=== PATIENT | male | born 1960 | race Caucasian/White ===

== ENCOUNTER 2016-09-17 12:54 | Emergency (ER) | payer OTHER ==
[2016-09-17 13:09] VITALS: BP 127/74; PULSE 94; TEMP 97.6; BMI 29.2
--- NOTE | 2016-09-17 14:14 | PDOC ---
History of Present Illness - General Chief Complaint: Abscess Boil Stated Complaint: PAIN Time Seen by Provider: 09/17/16 13:38 History Source: Patient - History of Present Illness Timing/Duration: reports: yesterday Location: reports: genitalia Past History - Past Medical History Allergies/Adverse Reactions: Allergies Allergy/AdvReac Type Severity Reaction Status Date / Time No Known Allergies Allergy Verified 09/17/16 13:04 Home Medications: Ambulatory Orders Insulin Lispro [Humalog] 10 unit SQ TID #1 ml 08/28/14 Metformin HCl [Glucophage -] 500 mg PO TID #90 tablet 08/28/14 Gabapentin [Gralise] 600 mg PO DAILY 03/23/16 Insulin (Levemir) [Levemir Vial] 37 units SQ BID #100 ml 03/31/16 Insulin Sliding Scale [Novolog Vial Sliding Scale -] 1 vial SQ ACHS units 03/31 Clindamycin [Cleocin -] 300 mg PO Q6HPO #28 capsule 09/17/16 Asthma: Yes Cardiac Disorders: Yes Diabetes: Yes (insulin) HTN: Yes Psychiatric Problems: Yes (anxiety) Suicide Attempt (Hx): No - Surgical History Abdominal Surgery: Yes Appendectomy: Yes Cholecystectomy: Yes - Immunization History Immunization Up to Date: Yes - Psycho/Social/Smoking Cessation Hx Anxiety: No Suicidal Ideation: No Smoking History: Never smoked Have you smoked in the past 12 months: No Information on smoking cessation initiated: No Hx Alcohol Use: No Drug/Substance Use Hx: No Substance Use Type: None Hx Substance Use Treatment: No Review of Systems - Review of Systems Constitutional: No: Chills, Fever Integumentary: Yes: Other (wound) *Physical Exam - Vital Signs Last Vital Signs Temp Pulse Resp BP Pulse Ox 97.6 F 94 H 18 127/74 100 09/17/16 13:05 09/17/16 13:05 09/17/16 13:05 09/17/16 13:05 09/17/16 13:05 - Physical Exam General Appearance: Yes: Appropriately Dressed. No: Apparent Distress HEENT: positive: Normal Voice Neck: positive: Supple Respiratory/Chest: negative: Respiratory Distress Male Genitalia: positive: other (~1cm superficial abscess draining pus located to junction of perienum and scrotum, genitalia otherwise unremarkable) Integumentary: positive: Dry, Warm Neurologic: positive: Fully Oriented, Alert, Normal Mood/Affect Procedures - Incision and Drainage I&D Site: Right: Groin (~1cm superficial abscess to perineum) Anesthesia: 1% Lidocaine Volume(ml): 5 Blade Size: 11 Attempts: 1 (w/ scant pus, no packing placed) Complications: none Dressing: Yes Medical Decision Making - Medical Decision Making 09/17/16 13:57 56 yo M, h/o IDDM , recurrent abscesses, MRSA on prior wound cx, here w/ pain and swelling to scrotum since yesterday. No f/c. Denies trauma See exam Draining superficial perineal abscess -I&D -tetanus UTD -abx -wound check 09/17/16 14:19 S/P I&D w/ scant pus, no need for packing. Dc w/ abx and wound check as needed *DC/Admit/Observation/Transfer Diagnosis at time of Disposition: Perineal abscess - Discharge Dispostion Disposition: HOME Condition at time of disposition: Improved - Prescriptions Prescriptions: Clindamycin [Cleocin -] 300 mg PO Q6HPO #28 capsule - Referrals Referrals: Purnima Velazco MD [Primary Care Provider] - - Patient Instructions Printed Discharge Instructions: DI for Incision and Drainage of a Skin Abscess Additional Instructions: Please return for worsening symptoms
== END 2016-09-17 14:17 | disposition home or self-care (01) ==
LOC: JERFT 12:54
PROC: 0J9B0ZZ Drainage of Perineum Subcutaneous Tissue and Fascia, Open Approach (ICD-10-PCS; principal; 2016-09-17)
DX: L02.215 Cutaneous abscess of perineum (principal); I10 Essential (primary) hypertension; E11.9 Type 2 diabetes mellitus without complications; Z79.84 Long term (current) use of oral hypoglycemic drugs; Z79.4 Long term (current) use of insulin; F41.9 Anxiety disorder, unspecified; J45.909 Unspecified asthma, uncomplicated
CPT/HCPCS: 99281-25

== ENCOUNTER 2017-01-10 11:51 | Inpatient (IN) | payer OTHER ==
[2017-01-10 12:02] VITALS: BMI 30.7
[2017-01-10] MEDS ORDERED: SODIUM CHLORIDE 1,000 ML IV STA ×2 (13:49→15:59)
[2017-01-10] MEDS ORDERED: CLINDAMYCIN IVPB 300 MG in DEXTROSE 5%-WATER - 48 ML IVPB ONE (13:50)
[2017-01-10] MEDS ORDERED: ACETAMINOPHEN 325 MG TABLET (FP) PO ONE (13:51)
[2017-01-10] MEDS ORDERED: OXYCODONE/APAP 5/325MG COMBO TABLET PO ONE (13:51)
[2017-01-10] MEDS ORDERED: ACETAMINOPHEN 325 MG TABLET (FP) ONE (14:13)
[2017-01-10] MEDS ORDERED: OXYCODONE/APAP 5/325MG COMBO TABLET ONE (14:14)
[2017-01-10 14:53] LABS: BASOPHIL 0.8 % (0-2.0); EOSINOPHIL 0.2 % (0-4.5); MCH 28.1 pg (25.7-33.7); MCHC 33.2 g/dl (32.0-35.9); MEAN CELL VOLUME 84.6 fl (80-96); MEAN PLT VOLUME 9.4 fl (7.5-11.1); NEUTROPHILS 79.2 % (42.8-82.8); PLATELET COUNT 204 K/MM3 (134-434); RDW 12.8 % (11.9-15.9); WHITE BLOOD COUNT 15.3 K/mm3 (4.0-10.0)
[2017-01-10 15:02] LABS: VENOUS PH 7.38 (7.32-7.42)
[2017-01-10 15:03] LABS: VENOUS BLOOD GAS HCO3 28.5 meq/L (19-25)
--- NOTE | 2017-01-10 15:07 | PDOC ---
History of Present Illness - General Chief Complaint: Pain, Acute Stated Complaint: ABSCESS BOIL Time Seen by Provider: 01/10/17 12:25 History Source: Patient Exam Limitations: No Limitations - History of Present Illness Initial Comments: 01/10/17 14:07 56-year-old male with history of diabetes and MRSA presents to the ED with worsening right buttock redness and tenderness. Patient states history of recurrent abscesses to the area and normally responds well to clindamycin. Patient states has not seen anyone a decided come to the ER before symptoms worsen. Patient states has had some fever and chills without elevation in his glucose. Patient denies any rectal involvement difficulty defecating, or difficulty urinating. Timing/Duration: getting worse Severity: moderate Associated Symptoms: reports: fever/chills Past History - Travel Traveled outside of the country in the last 30 days: No Close contact w/someone who was outside of country & ill: No - Past Medical History Allergies/Adverse Reactions: Allergies Allergy/AdvReac Type Severity Reaction Status Date / Time No Known Allergies Allergy Verified 01/10/17 12:03 Home Medications: Ambulatory Orders RX: Insulin Lispro [Humalog] 10 unit SQ TID #1 ml 08/28/14 RX: Metformin HCl [Glucophage -] 500 mg PO TID #90 tablet 08/28/14 RX: Gabapentin [Gralise] 600 mg PO DAILY 03/23/16 RX: Insulin (Levemir) [Levemir Vial] 37 units SQ BID #100 ml 03/31/16 RX: Insulin Sliding Scale [Novolog Vial Sliding Scale -] 1 vial SQ ACHS units 03/31/16 RX: Clindamycin [Cleocin -] 300 mg PO Q6HPO #28 capsule 09/17/16 Asthma: Yes Cardiac Disorders: Yes Diabetes: Yes (insulin) HTN: Yes Psychiatric Problems: Yes (anxiety) Suicide Attempt (Hx): No - Surgical History Abdominal Surgery: Yes Appendectomy: Yes Cholecystectomy: Yes - Immunization History Immunization Up to Date: Yes - Psycho/Social/Smoking Cessation Hx Anxiety: No Suicidal Ideation: No Smoking History: Never smoked Have you smoked in the past 12 months: No Hx Alcohol Use: No Drug/Substance Use Hx: No Substance Use Type: None Hx Substance Use Treatment: No Patient Lives Alone: No Lives with/in: spouse/SO Review of Systems - Review of Systems Able to Perform ROS?: Yes Is the patient limited Iraqi proficient: No Constitutional: Yes: Chills, Fever HEENTM: No: Symptoms Reported Respiratory: No: Symptoms reported Cardiac (ROS): No: Symptoms Reported ABD/GI: No: Symptoms Reported : No: Symptoms Reported Musculoskeletal: No: Symptoms Reported Integumentary: Yes: Erythema, Lumps Neurological: No: Symptoms reported Endocrine: No: Symptoms Reported Hematologic/Lymphatic: No: Symptoms Reported *Physical Exam - Vital Signs Last Vital Signs Temp Pulse Resp BP Pulse Ox 97.5 F L 128 H 18 133/89 95 01/10/17 12:00 01/10/17 12:00 01/10/17 12:00 01/10/17 12:00 01/10/17 12:00 - Physical Exam General Appearance: Yes: Nourished, Appropriately Dressed. No: Apparent Distress HEENT: negative: Pale Conjunctivae Respiratory/Chest: positive: Lungs Clear, Normal Breath Sounds. negative: Respiratory Distress, Accessory Muscle Use Cardiovascular: positive: Regular Rhythm, Tachycardia Rectal Exam: positive: normal exam Extremity: positive: Normal Capillary Refill. negative: Pedal Edema Integumentary: positive: Other (noted 3 x 4 nonfluctuant erythematous tender raised semi firm mass. Surrounding skin intact. No involvement of the rectum) Neurologic: positive: Motor Strength 5/5 (ambulatory) Heart Score/ECG Review - ECG Intrepretation Rhythm: Regular Rhythm (tachycardia at 113.) ED Treatment Course - LABORATORY CBC & Chemistry Diagram: 01/10/17 14:40 01/10/17 14:40 - Medications Given in the ED: ED Medications Discontinued Medications Generic Name Dose Route Start Last Admin Trade Name Freq PRN Reason Stop Dose Admin Acetaminophen 650 mg 01/10/17 13:51 01/10/17 14:17 Tylenol - PO 01/10/17 13:52 650 mg ONCE ONE Administration Oxycodone/Acetaminophen 1 combo 01/10/17 13:51 01/10/17 14:17 Percocet 5/325 - PO 01/10/17 13:52 1 combo ONCE ONE Administration Medical Decision Making - Medical Decision Making 01/10/17 14:11 Patient here with right buttock mass likely an abscess due to history and clinical presentation. Patient also found to be tachycardic and warm to touch. Septic workup initiated. Patient ordered for clindamycin. Patient also ordered for Tylenol along with Percocet for discomfort and likely fever. 01/10/17 16:33 Laboratory Tests 01/10/17 01/10/17 01/10/17 14:40 14:40 14:40 WBC 15.3 H D Hgb 15.3 Hct 46.1 Plt Count 204 D Neutrophils % 79.2 D INR 1.23 H VBG pH POC VBG pCO2 POC VBG pO2 Mixed VBG HCO3 Sodium 133 L Potassium 3.8 Chloride 96 L Carbon Dioxide 28 Anion Gap 9 BUN 12 Creatinine 0.8 Random Glucose 294 H Lactic Acid Calcium 8.6 Total Bilirubin 1.5 H D AST 9 L D Troponin I < 0.02 Total Protein 7.0 Albumin 3.2 L 01/10/17 01/10/17 14:40 14:45 WBC Hgb Hct Plt Count Neutrophils % INR VBG pH 7.38 POC VBG pCO2 49.7 POC VBG pO2 24.3 L Mixed VBG HCO3 28.5 H Sodium Potassium Chloride Carbon Dioxide Anion Gap BUN Creatinine Random Glucose Lactic Acid 1.9 Calcium Total Bilirubin AST Troponin I Total Protein Albumin 01/10/17 17:07 Due to patient's labs, clinical presentation and criteria for sepsis, patient will be admitted to [facility] inpatient unit. Patient's PCP Dr. Moran does not admit here. Patient will be admitted to the hospitalist. Patient agrees with plan. 01/10/17 17:[address] ventura who accepted patient to [facility] inpatient. She recommended to add a dose of vancomycin. *DC/Admit/Observation/Transfer Diagnosis at time of Disposition: Sepsis Qualifiers: Sepsis type: sepsis due to unspecified organism Qualified Code(s): A41.9 - Sepsis, unspecified organism Cellulitis Qualifiers: Site of cellulitis: buttock Qualified Code(s): L03.317 - Cellulitis of buttock - Discharge Dispostion Admit: Yes - Referrals Referrals: Purnima Velazco MD [Primary Care Provider] -
--- NOTE | 2017-01-10 15:20 | EKG ---
Test Reason : Blood Pressure : / mmHG Vent. Rate : 113 BPM Atrial Rate : 113 BPM P-R Int : 136 ms QRS Dur : 090 ms QT Int : 350 ms P-R-T Axes : 034 003 070 degrees QTc Int : 480 ms SINUS TACHYCARDIA OTHERWISE NORMAL ECG WHEN COMPARED WITH ECG OF 23-MAR-2016 16:27, NO SIGNIFICANT CHANGE WAS FOUND Confirmed by GIOVANY VEGA MD ([id number]) on 01/10/2017 3:20:09 PM Referred By: Confirmed By:GIOVANY VEGA MD
[2017-01-10 15:27] LABS: ALBUMIN 3.2 g/dl (3.4-5.0); ANION GAP 9 (8-16); BILIRUBIN,TOTAL 1.5 mg/dL (0.2-1.0); CALCIUM 8.6 mg/dL (8.5-10.1); CO2 28 mmol/L (21-32); CREATININE 0.8 mg/dL (0.7-1.3); GLUCOSE,RANDOM 294 mg/dL (74-106); SGOT/AST 9 U/L (15-37); SGPT/ALT 19 U/L (12-78)
[2017-01-10 15:30] LABS: ALK PHOS 96 U/L (45-117); INR 1.23 (0.82-1.09); PROTHROMBIN TIME (PATIENT) 13.6 SEC (9.98-11.88); TROPONIN I < 0.02 ng/ml (0.00-0.05)
[2017-01-10] MEDS ORDERED: VANCOMYCIN 1,000 MG in DEXTROSE 5%-WATER - 250 ML IVPB ONE (17:19)
--- NOTE | 2017-01-10 17:57 | HP ---
CHIEF COMPLAINT: " Right buttock pain" PCP: Dr. Bruce Milligan HISTORY OF PRESENT ILLNESS: Patient is a 56 year old male with past medical history of DM, Peripheral neuropathy, GERD, MRSA in the wound and multiple boils in he past, came in with the chief complaints of the right buttock pain. As per the Patient, he was apparently well until Monday morning, when he noticed a small pimple in this right buttock check. It progressiively got worse. He started having fever ( Tmax 102F); HR 120's. He took tylenol which gave him symptomatic relief. He started having severe pain over the right buttock, had some pain. Since he has a h/o multpile boils, he came in here. Denies chest pain, sob, cough, fever, chills, rigors or sweating. ER course was notable for: (1) Afebrile, Hemodynamically stable (2) (3) Clindamycin and Vanocmycin Recent Travel: None PAST MEDICAL HISTORY: DM, Peripheral neuropathy, GERD, MRSA in the wound and multiple boils in he past PAST SURGICAL HISTORY: Social History: Smoking: Alcohol: Drugs: Family History: Not known. Allergies No Known Allergies Allergy (Verified 01/10/17 12:03) HOME MEDICATIONS: Home Medications Medication Instructions Recorded Insulin Lispro [Humalog] 10 unit SQ TID #1 ml 08/28/14 Metformin HCl [Glucophage -] 500 mg PO TID #90 tablet 08/28/14 Gabapentin [Gralise] 600 mg PO DAILY 03/23/16 Insulin (Levemir) [Levemir Vial] 37 units SQ BID #100 ml 03/31/16 Insulin Sliding Scale [Novolog 1 vial SQ ACHS units 03/31/16 Vial Sliding Scale -] Clindamycin [Cleocin -] 300 mg PO Q6HPO #28 capsule 09/17/16 REVIEW OF SYSTEMS CONSTITUTIONAL: Absent: fever, chills, diaphoresis, generalized weakness, malaise, loss of appetite, weight change HEENT: Absent: rhinorrhea, nasal congestion, throat pain, throat swelling, difficulty swallowing, mouth swelling, ear pain, eye pain, visual changes CARDIOVASCULAR: Absent: chest pain, syncope, palpitations, irregular heart rate, lightheadedness , peripheral edema RESPIRATORY: Absent: cough, shortness of breath, dyspnea with exertion, orthopnea, wheezing, stridor, hemoptysis GASTROINTESTINAL: Absent: abdominal pain, abdominal distension, nausea, vomiting, diarrhea, constipation, melena, hematochezia GENITOURINARY: Absent: dysuria, frequency, urgency, hesitancy, hematuria, flank pain, genital pain MUSCULOSKELETAL: Absent: myalgia, arthralgia, joint swelling, back pain, neck pain SKIN: Absent: rash, itching, pallor HEMATOLOGIC/IMMUNOLOGIC: Absent: easy bleeding, easy bruising, lymphadenopathy, frequent infections ENDOCRINE: Absent: unexplained weight gain, unexplained weight loss, heat intolerance, cold intolerance NEUROLOGIC: Absent: headache, focal weakness or paresthesias, dizziness, unsteady gait, seizure, mental status changes, bladder or bowel incontinence PSYCHIATRIC: Absent: anxiety, depression, suicidal or homicidal ideation, hallucinations. PHYSICAL EXAMINATION Vital Signs - 24 hr 01/10/17 01/10/17 12:00 15:57 Temperature 97.5 F L 98.5 F Pulse Rate 128 H Pulse Rate [ 98 H Left Radial] Respiratory 18 20 Rate Blood Pressure 133/89 Blood Pressure 104/62 [Right Arm] O2 Sat by Pulse 95 96 Oximetry (%) GENERAL: Awake, alert, and fully oriented, in no acute distress. HEAD: Normal with no signs of trauma. EYES: Pupils equal, round and reactive to light, extraocular movements intact, sclera anicteric, conjunctiva clear. No lid lag. EARS, NOSE, THROAT: Ears normal, nares patent, oropharynx clear without exudates. Moist mucous membranes. NECK: Normal range of motion, supple without lymphadenopathy, JVD, or masses. LUNGS: Breath sounds equal, clear to auscultation bilaterally. No wheezes, and no crackles. No accessory muscle use. HEART: Regular rate and rhythm, normal S1 and S2 without murmur, rub or gallop. ABDOMEN: Soft, nontender, not distended, normoactive bowel sounds, no guarding, no rebound, no masses. No hepatomegaly or splenomegaly. MUSCULOSKELETAL: Normal range of motion at all joints. No bony deformities or tenderness. No CVA tenderness. Left buttock normal; Right buttock: Erythematous irregular area, raised temperature, indurated area, minimal fluctuance, no draining or pint point pus area noted. UPPER EXTREMITIES: 2+ pulses, warm, well-perfused. No cyanosis. No clubbing. No peripheral edema. LOWER EXTREMITIES: 2+ pulses, warm, well-perfused. No calf tenderness. No peripheral edema. NEUROLOGICAL: No facial droop, Power-5/5 in all ext, sensation intact,Cranial nerves II-XII intact. Normal speech. Gait not observed. PSYCHIATRIC: Cooperative. Good eye contact. Appropriate mood and affect. SKIN: Warm, dry, normal turgor, no rashes or lesions noted, normal capillary refill. Laboratory Results - last 24 hr 01/10/17 01/10/17 01/10/17 14:40 14:40 14:40 WBC 15.3 H D RBC 5.45 Hgb 15.3 Hct 46.1 MCV 84.6 MCHC 33.2 RDW 12.8 Plt Count 204 D MPV 9.4 D Neutrophils % 79.2 D Lymphocytes % 10.4 D Monocytes % 9.4 Eosinophils % 0.2 D Basophils % 0.8 INR 1.23 H VBG pH POC VBG pCO2 POC VBG pO2 Mixed VBG HCO3 Sodium 133 L Potassium 3.8 Chloride 96 L Carbon Dioxide 28 Anion Gap 9 BUN 12 Creatinine 0.8 Creat Clearance w eGFR > 60 Random Glucose 294 H Lactic Acid Calcium 8.6 Total Bilirubin 1.5 H D AST 9 L D ALT 19 D Alkaline Phosphatase 96 Creatine Kinase 48 Troponin I < 0.02 Total Protein 7.0 Albumin 3.2 L 01/10/17 01/10/17 14:40 14:45 WBC RBC Hgb Hct MCV MCHC RDW Plt Count MPV Neutrophils % Lymphocytes % Monocytes % Eosinophils % Basophils % INR VBG pH 7.38 POC VBG pCO2 49.7 POC VBG pO2 24.3 L Mixed VBG HCO3 28.5 H Sodium Potassium Chloride Carbon Dioxide Anion Gap BUN Creatinine Creat Clearance w eGFR Random Glucose Lactic Acid 1.9 Calcium Total Bilirubin AST ALT Alkaline Phosphatase Creatine Kinase Troponin I Total Protein Albumin ASSESSMENT/PLAN: Patient is a 56 year old male with past medical history of DM, Peripheral neuropathy, GERD, MRSA in the wound and multiple boils in he past, came in with the chief complaints of the right buttock pain. # Cellulitis of the right buttock Admitted in Med-Surg Has a h/o MRSA in the past IV Clindamycin 600mg Q8H. Received IV Vancomycin one dose in the ED ID Consult requested Blood culture pending # Diabetes Mellitus Last HbA1c 9-10 about 2 months ago HbA1c ordered, pending Continue Lispro; Insulin sliding scale and Levemir Hold Metformin # Peripheral neuropathy Gabapentin # FEN IV NS @ 100mls/hr Electroltes to be repeated tomorrow Diabetic diet # Prophyalxis FoR DVT- Ambulating. For GI: Not indicated # Code status: Full Code # Dispo: Admitted in Med-Surg. Duration of stay unknown. Illness, Investigation and Plan of care explained to the patient. He verbalised understanding. Case discussed with Dr. Corbin. Visit type - Emergency Visit Emergency Visit: Yes ED Registration Date: 01/10/17 Care time: The patient presented to the Emergency Department on the above date and was hospitalized for further evaluation of their emergent condition. - New Patient This patient is new to me today: Yes Date on this admission: 01/10/17 - Critical Care Critical Care patient: No
[2017-01-10] MEDS ORDERED: SODIUM CHLORIDE 1,000 ML IV SCH (18:30)
[2017-01-10] MEDS ORDERED: VANCOMYCIN 1 GRAM (PRE-DOCKED) 250 ML IVPB ONE (19:02)
--- NOTE | 2017-01-10 20:06 | PN ---
Teaching Attending Note Name of Resident: Mary Grace aGtes ATTENDING PHYSICIAN STATEMENT I saw and evaluated the patient. I reviewed the resident's note and discussed the case with the resident. I agree with the resident's findings and plan as documented. SUBJECTIVE: Patient is a 56 year old male with past medical history of DM, Peripheral neuropathy, GERD, MRSA in the wound and multiple boils in he past, came in with the chief complaints of the right buttock pain. c/o buttock pain, no fever or chills, no shortness of breath. OBJECTIVE: Vital Signs Temperature 98.5 F 01/10/17 15:57 Pulse Rate 98 H 01/10/17 15:57 Respiratory Rate 20 01/10/17 15:57 Blood Pressure 104/62 01/10/17 15:57 O2 Sat by Pulse Oximetry (%) 96 01/10/17 15:57 CBCD WBC 15.3 K/mm3 (4.0-10.0) H D 01/10/17 14:40 RBC 5.45 M/mm3 (4.00-5.60) 01/10/17 14:40 Hgb 15.3 GM/dL (11.7-16.9) 01/10/17 14:40 Hct 46.1 % (35.4-49) 01/10/17 14:40 MCV 84.6 fl (80-96) 01/10/17 14:40 MCHC 33.2 g/dl (32.0-35.9) 01/10/17 14:40 RDW 12.8 % (11.9-15.9) 01/10/17 14:40 Plt Count 204 K/MM3 (134-434) D 01/10/17 14:40 MPV 9.4 fl (7.5-11.1) D 01/10/17 14:40 CMP Sodium 133 mmol/L (136-145) L 01/10/17 14:40 Potassium 3.8 mmol/L (3.5-5.1) 01/10/17 14:40 Chloride 96 mmol/L (98-107) L 01/10/17 14:40 Carbon Dioxide 28 mmol/L (21-32) 01/10/17 14:40 Anion Gap 9 (8-16) 01/10/17 14:40 BUN 12 mg/dL (7-18) 01/10/17 14:40 Creatinine 0.8 mg/dL (0.7-1.3) 01/10/17 14:40 Creat Clearance w eGFR > 60 (>60) 01/10/17 14:40 Random Glucose 294 mg/dL (74-106) H 01/10/17 14:40 Calcium 8.6 mg/dL (8.5-10.1) 01/10/17 14:40 Total Bilirubin 1.5 mg/dL (0.2-1.0) H D 01/10/17 14:40 AST 9 U/L (15-37) L D 01/10/17 14:40 ALT 19 U/L (12-78) D 01/10/17 14:40 Alkaline Phosphatase 96 U/L (45-117) 01/10/17 14:40 Total Protein 7.0 g/dl (6.4-8.2) 01/10/17 14:40 Albumin 3.2 g/dl (3.4-5.0) L 01/10/17 14:40 CARDIAC ENZYMES Creatine Kinase 48 IU/L (39-308) 01/10/17 14:40 Troponin I < 0.02 ng/ml (0.00-0.05) 01/10/17 14:40 Current Medications Generic Name Dose Route Start Last Admin Trade Name Freq PRN Reason Stop Dose Admin Sodium Chloride 1,000 mls @ 100 mls/hr 01/10/17 18:30 Normal Saline - IV ASDIR [facility] Clindamycin Phosphate 50 mls @ 100 mls/hr 01/11/17 02:00 Cleocin 600 Mg Premix Ivpb - IVPB Q8H-IV [facility] Insulin Aspart 1 vial 01/10/17 22:00 Novolog Vial Sliding Scale - SQ ACHS [facility] Protocol Insulin Aspart 10 units 01/11/17 07:00 Novolog Vial SQ TIDAC [facility] Insulin Detemir 37 units 01/10/17 22:00 Levemir Vial SQ BID@0700,2200 [facility] Non-Formulary Medication 600 mg 01/11/17 10:00 Gabapentin [Gralise] PO DAILY [facility] Oxycodone HCl 5 mg 01/10/17 18:51 Roxicodone - PO Q4H PRN MODERATE PAIN Home Medications Medication Instructions Recorded Insulin Lispro [Humalog] 10 unit SQ TID #1 ml 08/28/14 Metformin HCl [Glucophage -] 500 mg PO TID #90 tablet 08/28/14 Gabapentin [Gralise] 600 mg PO DAILY 03/23/16 Insulin (Levemir) [Levemir Vial] 37 units SQ BID #100 ml 03/31/16 Insulin Sliding Scale [Novolog 1 vial SQ ACHS units 03/31/16 Vial Sliding Scale -] Clindamycin [Cleocin -] 300 mg PO Q6HPO #28 capsule 09/17/16 ASSESSMENT AND PLAN: 56-year-old male with history of diabetes and MRSA presents to the ED with worsening right buttock redness and tenderness. Patient states history of recurrent abscesses to the area and normally responds well to clindamycin. Patient states has not seen anyone a decided come to the ER before symptoms worsen. # Acute sepsis presented with tachycardia, low fever and leukocytosis, ON IV antibiotic Cleocin 600mg q8h IV. ID consult #Acute Cellulitis of Right Buttock on IV antibiotic Cleocin daily # DM Uncontrolled sliding scale with coverage , continue Levemir,novolog, IVF DVT Px: SCD
[2017-01-10] MEDS: oxyCODONE HCL 5 MG TABLET PO PRN (21:00)
[2017-01-10] MEDS ORDERED: oxyCODONE HCL 5 MG TABLET ONE (21:02)
[2017-01-10] MEDS: INSULIN SLIDING SCALE (NOVOLOG) 1 VIAL SQ SCH (21:16)
[2017-01-10] MEDS: INSULIN DETEMIR 100 UNITS/ML MDV SQ SCH (23:00)
[2017-01-11] MEDS ORDERED: oxyCODONE HCL 5 MG TABLET ONE ×2 (02:36→15:04)
[2017-01-11] MEDS ORDERED: CLINDAMYCIN 600MG PREMIX IVPB 50 ML IVPB ONE ×2 (02:37→19:52)
[2017-01-11] MEDS: CLINDAMYCIN 600MG PREMIX IVPB 50 ML IVPB SCH ×3 (02:52→19:59)
[2017-01-11] MEDS: INSULIN (NOVOLOG) ASPART 100 UNITS/ML 10ML VIAL SQ SCH ×3 (07:16→19:06)
[2017-01-11] MEDS: INSULIN SLIDING SCALE (NOVOLOG) 1 VIAL SQ SCH ×4 (07:17→22:12)
[2017-01-11] MEDS: INSULIN DETEMIR 100 UNITS/ML MDV SQ SCH ×2 (07:17→22:12)
[2017-01-11 07:36] LABS: BASOPHIL 0.6 % (0-2.0); EOSINOPHIL 0.2 % (0-4.5); MCH 28.3 pg (25.7-33.7); MCHC 33.5 g/dl (32.0-35.9); MEAN CELL VOLUME 84.6 fl (80-96); MEAN PLT VOLUME 9.4 fl (7.5-11.1); NEUTROPHILS 78.5 % (42.8-82.8); PLATELET COUNT 187 K/MM3 (134-434); RDW 12.8 % (11.9-15.9); WHITE BLOOD COUNT 14.3 K/mm3 (4.0-10.0)
[2017-01-11 08:12] LABS: ALBUMIN 2.7 g/dl (3.4-5.0); ALK PHOS 84 U/L (45-117); ANION GAP 10 (8-16); BILIRUBIN,TOTAL 1.1 mg/dL (0.2-1.0); CO2 25 mmol/L (21-32); COCKROFT - GAULT 227.2; CREATININE 0.5 mg/dL (0.7-1.3); GLUCOSE,RANDOM 218 mg/dL (74-106); SGOT/AST 15 U/L (15-37); SGPT/ALT 17 U/L (12-78); TOT PROT 5.9 g/dl (6.4-8.2)
[2017-01-11 08:23] LABS: INR 1.21 (0.82-1.09); PROTHROMBIN TIME (PATIENT) 13.4 SEC (9.98-11.88)
[2017-01-11 08:25] LABS: ACTIVATED PTT 27.3 SECONDS (26.9-34.4)
--- NOTE | 2017-01-11 08:27 | CONSULT ---
- Consultation REQUESTING PROVIDER: Barrera CONSULT REQUEST: We have been asked to surgically evaluate this patient for evaluation and management of pain and swelling of the right buttock PCP:Andi Muñoz MD HISTORY OF PRESENT ILLNESS: Pain and swelling of the right buttock over 48 hours ; no trauma; associated sujective fever; he has a h/o ABSSSI's in the past txed w/antibiotics and/or I and D. PMHx: reviewed PSHx: reviewed Home Medications Medication Instructions Recorded Insulin Lispro [Humalog] 10 unit SQ TID #1 ml 08/28/14 Metformin HCl [Glucophage -] 500 mg PO TID #90 tablet 08/28/14 Gabapentin [Gralise] 600 mg PO DAILY 03/23/16 Insulin (Levemir) [Levemir Vial] 37 units SQ BID #100 ml 03/31/16 Insulin Sliding Scale [Novolog 1 vial SQ ACHS units 03/31/16 Vial Sliding Scale -] Clindamycin [Cleocin -] 300 mg PO Q6HPO #28 capsule 09/17/16 Allergies Allergy/AdvReac Type Severity Reaction Status Date / Time No Known Allergies Allergy Verified 01/10/17 12:03 PHYSICAL EXAM: GENERAL: Awake, alert, and fully oriented, in no acute distress. HEART: Regular rate and rhythm. No murmurs ABDOMEN: Soft, nontender, not distended, normoactive bowel sounds, no guarding, no rebound, no masses. No organomegaly. MUSCULOSKELETAL: Normal ROM at all joints. No bony deformities or tenderness. No CVA tenderness. UPPER EXTREMITIES: 2+ pulses, warm, well-perfused. No cyanosis. Cap refill <2 seconds. No peripheral edema. LOWER EXTREMITIES: 2+ pulses, warm, well-perfused. No calf tenderness. No peripheral edema. NEUROLOGICAL: Normal speech, gait not observed. PSYCH: Cooperative. Good eye contact. Appropriate mood and affect. SKIN: Warm, dry, normal turgor, stigmata of previous ABSSSI of the axillae and groins; induration and erythema and ttp of the soft tissue of the right buttock ; no fluctuance Vital Signs Temperature 98.4 F 01/11/17 06:28 Pulse Rate 82 01/11/17 06:28 Respiratory Rate 16 01/11/17 06:28 Blood Pressure 129/78 01/11/17 06:28 O2 Sat by Pulse Oximetry (%) 100 01/11/17 06:28 Lab Results WBC 14.3 K/mm3 (4.0-10.0) H 01/11/17 06:00 RBC 4.82 M/mm3 (4.00-5.60) 01/11/17 06:00 Hgb 13.6 GM/dL (11.7-16.9) D 01/11/17 06:00 Hct 40.7 % (35.4-49) 01/11/17 06:00 MCV 84.6 fl (80-96) 01/11/17 06:00 MCHC 33.5 g/dl (32.0-35.9) 01/11/17 06:00 RDW 12.8 % (11.9-15.9) 01/11/17 06:00 Plt Count 187 K/MM3 (134-434) 01/11/17 06:00 Sodium 137 mmol/L (136-145) 01/11/17 06:34 Potassium 3.9 mmol/L (3.5-5.1) 01/11/17 06:34 Chloride 102 mmol/L (98-107) 01/11/17 06:34 Carbon Dioxide 25 mmol/L (21-32) 01/11/17 06:34 Anion Gap 10 (8-16) 01/11/17 06:34 BUN 9 mg/dL (7-18) D 01/11/17 06:34 Creatinine 0.5 mg/dL (0.7-1.3) L D 01/11/17 06:34 Random Glucose 218 mg/dL (74-106) H D 01/11/17 06:34 Calcium 8.0 mg/dL (8.5-10.1) L 01/11/17 06:34 INR 1.23 (0.82-1.09) H 01/10/17 14:40 IMP: cellulitis right buttock; r/o abscess. PLAN: suggest CT pelvis to r/o collection; if present will need I and D; to d/w primary care team; patient understands proposed plan. Daniel Austin MD FACS Visit type - Case Type Case Type: ED Admission - Emergency Emergency Visit: Yes ED Registration Date: 01/10/17 Care time: The patient presented to the Emergency Department on the above date and was hospitalized for further evaluation of their emergent condition. - New patient This patient is new to me today: Yes Date on this admission: 01/11/17 - Critical Care Critical Care patient: No
[2017-01-11] MEDS ORDERED: DOCUSATE SODIUM 100 MG CAPSULE (FP) PO PRN (10:53)
[2017-01-11 11:18] LABS: CHOLESTEROL 186 mg/dL (50-200); LDL CHOLESTEROL (ONLY SJRH) 128 mg/dL (5-100)
[2017-01-11] MEDS ORDERED: INSULIN (NOVOLOG) ASPART 100 UNITS/ML 10ML VIAL ONE (11:26)
--- NOTE | 2017-01-11 12:47 | PN ---
Teaching Attending Note Name of Resident: Mary Grace Gates ATTENDING PHYSICIAN STATEMENT I saw and evaluated the patient. I reviewed the resident's note and discussed the case with the resident. I agree with the resident's findings and plan as documented. SUBJECTIVE:c/o r buttock pain and swelling associated with fever OBJECTIVE: Vital Signs Temperature 98.0 F 01/11/17 10:20 Pulse Rate 101 H 01/11/17 10:20 Respiratory Rate 16 01/11/17 10:20 Blood Pressure 122/73 01/11/17 10:20 O2 Sat by Pulse Oximetry (%) 100 01/11/17 10:20 GENERAL: Awake, alert, and fully oriented, in no acute distress. HEAD: Normal with no signs of trauma. EYES: Pupils equal, round and reactive to light, extraocular movements intact, sclera anicteric, conjunctiva clear. No lid lag. EARS, NOSE, THROAT: Ears normal, nares patent, oropharynx clear without exudates. Moist mucous membranes. NECK: Normal range of motion, supple without lymphadenopathy, JVD, or masses. LUNGS: Breath sounds equal, clear to auscultation bilaterally. No wheezes, and no crackles. No accessory muscle use. HEART: Regular rate and rhythm, normal S1 and S2 without murmur, rub or gallop. ABDOMEN: Soft, nontender, not distended, normoactive bowel sounds, no guarding, no rebound, no masses. No hepatomegaly or splenomegaly. MUSCULOSKELETAL: Normal range of motion at all joints. No bony deformities or tenderness. No CVA tenderness. Left buttock normal; Right buttock: Erythematous irregular area, raised temperature, indurated area, no fluctuance, no draining or pint point pus area noted. UPPER EXTREMITIES: 2+ pulses, warm, well-perfused. No cyanosis. No clubbing. No peripheral edema. LOWER EXTREMITIES: 2+ pulses, warm, well-perfused. No calf tenderness. No peripheral edema. NEUROLOGICAL: No facial droop, Power-5/5 in all ext, sensation intact,Cranial nerves II-XII intact. Normal speech. Gait not observed. PSYCHIATRIC: Cooperative. Good eye contact. Appropriate mood and affect. SKIN: Warm, dry, normal turgor, no rashes or lesions noted, normal capillary refill. CBC, BMP 01/11/17 06:00 06/14/17 06:34 ASSESSMENT AND PLAN: # Sepsis secondary to cellulitis of the right buttock, suspected MRSA,CT shows no drainable collection. IV Clindamycin 600mg Q8H. Received IV Vancomycin one dose in the ED Blood culture pending CT shows no drainable collection IVF # Diabetes Mellitus- uncontrolled Insulin sliding scale and Levemir Diabetic diet diabetic education and counselling # Peripheral neuropathy on Gabapentin
[2017-01-11] MEDS: SODIUM CHLORIDE 1,000 ML IV SCH ×2 (13:45→21:49)
[2017-01-11] MEDS: oxyCODONE HCL 5 MG TABLET PO PRN ×2 (15:10→22:10)
--- NOTE | 2017-01-11 15:59 | PN ---
Physical Exam: SUBJECTIVE: Patient seen and examined at bed side this morning. No complaints. Denies chest pain, sob, cough, fever, chills, rigors or sweating. OBJECTIVE: Vital Signs Period Temp Pulse Resp BP Sys/Ji Pulse Ox Last 24 Hr 98.0 F-99.1 F 82-102 16-16 102-129/62-78 100-100 GENERAL: Awake, alert, and fully oriented, in no acute distress. HEAD: Normal with no signs of trauma. EYES: Pupils equal, round and reactive to light, extraocular movements intact, sclera anicteric, conjunctiva clear. No lid lag. EARS, NOSE, THROAT: Ears normal, nares patent, oropharynx clear without exudates. Moist mucous membranes. NECK: Normal range of motion, supple without lymphadenopathy, JVD, or masses. LUNGS: Breath sounds equal, clear to auscultation bilaterally. No wheezes, and no crackles. No accessory muscle use. HEART: Regular rate and rhythm, normal S1 and S2 without murmur, rub or gallop. ABDOMEN: Soft, nontender, not distended, normoactive bowel sounds, no guarding, no rebound, no masses. No hepatomegaly or splenomegaly. MUSCULOSKELETAL: Normal range of motion at all joints. No bony deformities or tenderness. No CVA tenderness. Left buttock normal; Right buttock: Erythematous irregular area increased as compared to yesterday, raised temperature, indurated area, minimal fluctuance, no draining or pint point pus area noted. UPPER EXTREMITIES: 2+ pulses, warm, well-perfused. No cyanosis. No clubbing. No peripheral edema. LOWER EXTREMITIES: 2+ pulses, warm, well-perfused. No calf tenderness. No peripheral edema. NEUROLOGICAL: No facial droop, Power-5/5 in all ext, sensation intact,Cranial nerves II-XII intact. Normal speech. Gait not observed. PSYCHIATRIC: Cooperative. Good eye contact. Appropriate mood and affect. SKIN: Warm, dry, normal turgor, no rashes or lesions noted, normal capillary refill. Laboratory Results - last 24 hr 01/10/17 01/10/17 01/11/17 20:43 21:10 06:00 WBC 14.3 H RBC 4.82 Hgb 13.6 D Hct 40.7 MCV 84.6 MCHC 33.5 RDW 12.8 Plt Count 187 MPV 9.4 Neutrophils % 78.5 Lymphocytes % 10.0 Monocytes % 10.7 H Eosinophils % 0.2 Basophils % 0.6 INR PTT (Actin FS) Sodium Potassium Chloride Carbon Dioxide Anion Gap BUN Creatinine Creat Clearance w eGFR POC Glucometer [phone] Random Glucose Hemoglobin A1c % Lactic Acid 2.0 Calcium Total Bilirubin AST ALT Alkaline Phosphatase Total Protein Albumin Triglycerides Cholesterol Total LDL Cholesterol HDL Cholesterol 01/11/17 01/11/17 01/11/17 06:00 06:00 06:34 WBC RBC Hgb Hct MCV MCHC RDW Plt Count MPV Neutrophils % Lymphocytes % Monocytes % Eosinophils % Basophils % INR 1.21 H PTT (Actin FS) 27.3 Sodium Potassium Chloride Carbon Dioxide Anion Gap BUN Creatinine Creat Clearance w eGFR POC Glucometer Random Glucose Hemoglobin A1c % 13.5 H D Lactic Acid Calcium Total Bilirubin AST ALT Alkaline Phosphatase Total Protein Albumin Triglycerides Cancelled Cholesterol Cancelled Total LDL Cholesterol Cancelled HDL Cholesterol Cancelled 01/11/17 01/11/17 06:34 11:07 WBC RBC Hgb Hct MCV MCHC RDW Plt Count MPV Neutrophils % Lymphocytes % Monocytes % Eosinophils % Basophils % INR PTT (Actin FS) Sodium 137 Potassium 3.9 Chloride 102 Carbon Dioxide 25 Anion Gap 10 BUN 9 D Creatinine 0.5 L D Creat Clearance w eGFR > 60 POC Glucometer [phone] Random Glucose 218 H D Hemoglobin A1c % Lactic Acid Calcium 8.0 L Total Bilirubin 1.1 H D AST 15 D ALT 17 Alkaline Phosphatase 84 Total Protein 5.9 L Albumin 2.7 L Triglycerides 91 D Cholesterol 186 Total LDL Cholesterol 128 H HDL Cholesterol 50 D Active Medications Generic Name Dose Route Start Last Admin Trade Name Wanq PRN Reason Stop Dose Admin Docusate Sodium 100 mg 01/11/17 10:53 Colace - PO BID PRN CONSTIPATION Clindamycin Phosphate 50 mls @ 100 mls/hr 01/11/17 02:00 01/11/17 11:30 Cleocin 600 Mg Premix Ivpb - IVPB 100 mls/hr Q8H-IV [facility] Administration Sodium Chloride 1,000 mls @ 75 mls/hr 01/11/17 13:18 01/11/17 13:45 Normal Saline - IV 75 mls/hr ASDIR [facility] Administration Insulin Aspart 1 vial 01/10/17 22:00 01/11/17 11:31 Novolog Vial Sliding Scale - SQ 2 unit ACHS [facility] Administration Protocol Insulin Aspart 10 units 01/11/17 07:00 01/11/17 11:31 Novolog Vial SQ 10 units TIDAC [facility] Administration Insulin Detemir 37 units 01/10/17 22:00 01/11/17 07:17 Levemir Vial SQ Not Given BID@0700,2200 [facility] Non-Formulary Medication 600 mg 01/11/17 10:00 Gabapentin [Gralise] PO DAILY [facility] Oxycodone HCl 5 mg 01/10/17 18:51 01/11/17 15:10 Roxicodone - PO 5 mg Q4H PRN Administration MODERATE PAIN Senna 2 tab 01/11/17 22:00 Senna - PO HS [facility] 01/11/17 CT pelvis: Evaluation of the right buttocks demonstrates inflammatory stranding within the subcutaneous fatty tissues. These changes are most pronounced within the medial aspect of the upper thigh with the suggestion of a developing abscess in this location. This process is subcutaneous and measures approximately 3.4 x 1.9 x 3.7 cm. It is uncertain whether this is a drainable collection at this time. Clinical correlation and follow-up is recommended. No pelvic masses or fluid collections are identified. There is no evidence of pelvic lymphadenopathy. The prostate gland is slightly enlarged. There is no evidence of acute bony pathology. ASSESSMENT/PLAN: Patient is a 56 year old male with past medical history of DM, Peripheral neuropathy, GERD, MRSA in the wound and multiple boils in he past, came in with the chief complaints of the right buttock pain. # Cellulitis of the right buttock Admitted in Med-Surg Has a h/o MRSA in the past. Blood culture negative IV NS @ 75mls.hr IV Clindamycin 600mg Q8H. Received IV Vancomycin one dose in the ED Surgery was consulted, CT pelvis was done to r/o abscess and for possible I and D. Report mentioned as above. I and D as per surgery ID Consult requested # Diabetes Mellitus HbA1c 13.5 Continue Lispro; Insulin sliding scale and Levemir Hold Metformin Diabetic diet # Peripheral neuropathy Gabapentin # FEN IV NS @ 75mls/hr Electrolytes to be repeated tomorrow Diabetic diet # Prophyalxis FoR DVT- Ambulating. For GI: Not indicated # Code status: Full Code # Dispo: Admitted in Med-Surg. Duration of stay unknown. Illness, Investigation and Plan of care explained to the patient. He verbalized understanding. Case discussed with Dr. Muñoz. Visit type - Emergency Visit Emergency Visit: Yes ED Registration Date: 01/10/17 Care time: The patient presented to the Emergency Department on the above date and was hospitalized for further evaluation of their emergent condition. - New Patient This patient is new to me today: Yes Date on this admission: 01/11/17 - Critical Care Critical Care patient: No - Discharge Referral Referred to [facility] Med P.C.: No
--- NOTE | 2017-01-11 17:25 | CONSULT ---
Consult Consult Specialty:: infectious diseases Reason for Consultation:: gluetal abscess - History of Present Illness Chief Complaint: pain and swelling gluteal region History of Present Illness: 56 year old male with past medical history of DM, Peripheral neuropathy, GERD, MRSA in the wound and multiple boils in he past, patient well known to me from previous admission with abscess and draiange of the axialla which ahs healed well now comes with abscess of the rt buttocks patient had abscess since 2- 3days and according to him started as small pimple and then it became to the size as it is - History Source History Provided By: Patient Limitations to Obtaining History: No Limitations - Past Medical History Cardio/Vascular: Yes: HTN Pulmonary: Yes: Asthma Endocrine: Yes: Diabetes Mellitus - Alcohol/Substance Use Hx Alcohol Use: No - Smoking History Smoking history: Never smoked Have you smoked in the past 12 months: No Home Medications - Allergies Allergies/Adverse Reactions: Allergies Allergy/AdvReac Type Severity Reaction Status Date / Time No Known Allergies Allergy Verified 01/10/17 12:03 - Home Medications Home Medications: Ambulatory Orders Insulin (Levemir) [Levemir Vial] 37 units SQ BID #100 ml 03/31/16 Insulin Sliding Scale [Novolog Vial Sliding Scale -] 1 vial SQ ACHS units 03/31 Clindamycin [Cleocin -] 300 mg PO Q6HPO #28 capsule 09/17/16 Gabapentin [Neurontin -] 300 mg PO BID 01/12/17 Insulin Lispro [Humalog] 10 unit SQ TIDCM 01/12/17 Metformin HCl 500 mg PO TIDCM 01/12/17 Review of Systems - Review of Systems Constitutional: reports: No Symptoms Eyes: reports: No Symptoms HENT: reports: No Symptoms Neck: reports: No Symptoms Cardiovascular: reports: No Symptoms Respiratory: reports: No Symptoms Gastrointestinal: reports: No Symptoms Genitourinary: reports: No Symptoms Musculoskeletal: reports: No Symptoms Integumentary: reports: Erythema Physical Exam Vital Signs: Vital Signs Temperature 99.1 F 01/11/17 14:00 Pulse Rate 102 H 01/11/17 14:00 Respiratory Rate 16 01/11/17 14:00 Blood Pressure 102/62 01/11/17 14:00 O2 Sat by Pulse Oximetry (%) 100 01/11/17 10:20 Constitutional: Yes: Well Nourished, Calm, Mild Distress Eyes: Yes: Conjunctiva Clear HENT: Yes: Atraumatic Neck: Yes: Supple, Trachea Midline Cardiovascular: Yes: Regular Rate and Rhythm Respiratory: Yes: Regular, CTA Bilaterally Gastrointestinal: Yes: Normal Bowel Sounds, Soft ...Rectal Exam: Yes: Other (rt gluteal abscess) Musculoskeletal: Yes: WNL Extremities: Yes: WNL Integumentary: Yes: Erythema Neurological: Yes: Alert, Oriented Psychiatric: Yes: Alert, Oriented Labs: CBC, BMP 01/11/17 06:00 01/11/17 06:34 Imaging - Results Cat Scan: Report Reviewed, Image Reviewed Assessment/Plan Patient is a 56 year old male with past medical history of DM, Peripheral neuropathy, GERD, MRSA in the wound and multiple boils in he past, came in with the chief complaints of the right buttock pain. Cellulitis of the right buttock Diabetes Mellitus Peripheral neuropathy plan will start patient on zosyn continue clinda patient needs i and d
[2017-01-11] MEDS: PIPERACILLIN/TAZOB 3.375 GM 50 ML IVPB SCH (21:49)
[2017-01-11] MEDS: SENNOSIDES 8.6MG TABLET (FP) PO SCH (22:12)
[2017-01-12] MEDS: CLINDAMYCIN 600MG PREMIX IVPB 50 ML IVPB SCH ×3 (01:23→17:19)
[2017-01-12] MEDS: PIPERACILLIN/TAZOB 3.375 GM 50 ML IVPB SCH ×3 (02:20→17:19)
[2017-01-12] MEDS: oxyCODONE HCL 5 MG TABLET PO PRN ×3 (05:00→18:39)
[2017-01-12 07:11] LABS: MCH 28.4 pg (25.7-33.7); MCHC 33.5 g/dl (32.0-35.9); MEAN CELL VOLUME 84.8 fl (80-96); MEAN PLT VOLUME 9.5 fl (7.5-11.1); PLATELET COUNT 190 K/MM3 (134-434); RDW 12.7 % (11.9-15.9); WHITE BLOOD COUNT 14.6 K/mm3 (4.0-10.0)
[2017-01-12 07:44] LABS: CALCIUM 8.2 mg/dL (8.5-10.1); COCKROFT - GAULT 191.99; CREATININE 0.6 mg/dL (0.7-1.3)
[2017-01-12] MEDS ORDERED: PT OWN MED DRAWER 7, Y5N ONE (08:57)
[2017-01-12] MEDS ORDERED: INSULIN DETEMIR 100 UNITS/ML MDV SQ ONE (08:58)
[2017-01-12] MEDS: INSULIN SLIDING SCALE (NOVOLOG) 1 VIAL SQ SCH ×4 (09:08→21:39)
[2017-01-12] MEDS: INSULIN (NOVOLOG) ASPART 100 UNITS/ML 10ML VIAL SQ SCH ×3 (09:09→16:44)
[2017-01-12] MEDS: INSULIN DETEMIR 100 UNITS/ML MDV SQ SCH ×2 (09:33→21:39)
--- NOTE | 2017-01-12 10:57 | PN ---
Physical Exam: SUBJECTIVE: Patient seen and examined at bedside this AM. Afebrile overnight and in good spirits. States that he felt a mild popping sensation last night in the infected region which drained a small amount of blood & pus. No active bleed or drainage noted on my exam. States he is hungry and would like to eat. OBJECTIVE: Vital Signs Period Temp Pulse Resp BP Sys/Ji Pulse Ox Last 24 Hr 98.2 F-99.8 F 102-112 16-20 102-131/59-73 92-92 GENERAL: The patient is awake, alert, and fully oriented, in no acute distress. HEENT: Atraumatic, EOMI, PERRLA, No lymphadenopathy noted, moist membranes LUNGS: Breath sounds equal, clear to auscultation bilaterally, no wheezes, no crackles HEART: Regular rate and rhythm, S1, S2 without murmur, rub or gallop. ABDOMEN: Soft, nontender, nondistended, normoactive bowel sounds, no guarding, no rebound EXTREMITIES: 2+ pulses, warm, well-perfused, no edema. NEUROLOGICAL: Cranial nerves II through XII grossly intact. Normal speech, gait not observed. Strength intact upper & lower extremities PSYCH: Normal mood, normal affect. SKIN: as above MSK: Erythematous, warm, swollen area at medial right gluteal fold. Mild induration but no fluctuance. No active drainage or bleeding noted. Region smaller than yesterday. Laboratory Results - last 24 hr 01/11/17 01/11/17 01/11/17 06:00 06:34 11:07 WBC RBC Hgb Hct MCV MCHC RDW Plt Count MPV Sodium Potassium Chloride Carbon Dioxide Anion Gap BUN Creatinine POC Glucometer [phone] Random Glucose Calcium Triglycerides Cancelled 91 D Cholesterol Cancelled 186 Total LDL Cholesterol Cancelled 128 H HDL Cholesterol Cancelled 50 D 01/11/17 01/12/17 01/12/17 21:59 05:35 05:35 WBC 14.6 H RBC 4.71 Hgb 13.4 Hct 39.9 MCV 84.8 MCHC 33.5 RDW 12.7 Plt Count 190 MPV 9.5 Sodium 138 Potassium 3.6 Chloride 99 Carbon Dioxide 29 Anion Gap 10 BUN 8 Creatinine 0.6 L POC Glucometer 249 Random Glucose 227 H Calcium 8.2 L Triglycerides Cholesterol Total LDL Cholesterol HDL Cholesterol 01/12/17 06:16 WBC RBC Hgb Hct MCV MCHC RDW Plt Count MPV Sodium Potassium Chloride Carbon Dioxide Anion Gap BUN Creatinine POC Glucometer 214 Random Glucose Calcium Triglycerides Cholesterol Total LDL Cholesterol HDL Cholesterol Active Medications Generic Name Dose Route Start Last Admin Trade Name Freq PRN Reason Stop Dose Admin Docusate Sodium 100 mg 01/11/17 10:53 01/11/17 22:12 Colace - PO 100 mg BID PRN Administration CONSTIPATION Clindamycin Phosphate 50 mls @ 100 mls/hr 01/11/17 02:00 01/12/17 09:07 Cleocin 600 Mg Premix Ivpb - IVPB 100 mls/hr Q8H-IV [facility] Administration Sodium Chloride 1,000 mls @ 75 mls/hr 01/11/17 13:18 01/11/17 21:49 Normal Saline - IV 75 mls/hr ASDIR [facility] Administration Piperacillin Sod/Tazobactam Sod 50 mls @ 100 mls/hr 01/11/17 18:00 01/12/17 09: 06 Zosyn 3.375gm Ivpb (Pre-Docked) IVPB 100 mls/hr Q8H-IV [facility] Administration Protocol Insulin Aspart 1 vial 01/10/17 22:00 01/12/17 09:08 Novolog Vial Sliding Scale - SQ 4 unit ACHS [facility] Administration Protocol Insulin Aspart 10 units 01/11/17 07:00 01/12/17 09:09 Novolog Vial SQ 10 units TIDAC [facility] Administration Insulin Detemir 40 units 01/12/17 07:20 Levemir Vial SQ BID@0700,2200 [facility] Non-Formulary Medication 600 mg 01/11/17 10:00 Gabapentin [Gralise] PO DAILY [facility] Oxycodone HCl 5 mg 01/10/17 18:51 01/12/17 09:20 Roxicodone - PO 5 mg Q4H PRN Administration MODERATE PAIN Senna 2 tab 01/11/17 22:00 01/11/17 22:12 Senna - PO 2 tab HS [facility] Administration ASSESSMENT/PLAN: Patient is a 56 year old male with past medical history of DM, Peripheral neuropathy, GERD, MRSA wound infection and multiple boils in the past, who came in with the chief complaints of the right buttock pain. #Acute Cellulitis with possible abscess formation, right buttock -on Zosyn & Clindamycin, as per ID -Surgery consulted, as per CT imaging, abscess is likely not drainable -IVF NS@75cc/hr -Blood cultures (-) -Wound culture pending -Colace, Senna bowel regimen -Oxycodone for pain management -ID Consult appreciated #Diabetes -Levemir 40u BID -Insulin sliding scale for coverage & 10u at meals -Diabetic Diet -HbA1c 13.5 -Gabapentin for neuropathy Prophylaxis/FEN -Ambulatory so no need for AC -PPI not indicated -IVF NS@75cc/hr -will continue to monitor electrolytes -Diabetic diet Visit type - Emergency Visit Emergency Visit: Yes ED Registration Date: 01/10/17 Care time: The patient presented to the Emergency Department on the above date and was hospitalized for further evaluation of their emergent condition. - New Patient This patient is new to me today: Yes Date on this admission: 01/12/17 - Critical Care Critical Care patient: No
--- NOTE | 2017-01-12 11:21 | PN ---
Teaching Attending Note Name of Resident: Gold Saldivar ATTENDING PHYSICIAN STATEMENT I saw and evaluated the patient. I reviewed the resident's note and discussed the case with the resident. I agree with the resident's findings and plan as documented. SUBJECTIVE: reports drainage from right buttock area, feels significant improvement in pain OBJECTIVE: Vital Signs Temperature 98.2 F 01/12/17 10:00 Pulse Rate 108 H 01/12/17 10:00 Respiratory Rate 18 01/12/17 10:00 Blood Pressure 102/59 01/12/17 10:00 O2 Sat by Pulse Oximetry (%) 92 L 01/12/17 10:00 ENERAL: Awake, alert, and fully oriented, in no acute distress. HEAD: Normal with no signs of trauma. EYES: Pupils equal, round and reactive to light, extraocular movements intact, sclera anicteric, conjunctiva clear. No lid lag. EARS, NOSE, THROAT: Ears normal, nares patent, oropharynx clear without exudates. Moist mucous membranes. NECK: Normal range of motion, supple without lymphadenopathy, JVD, or masses. LUNGS: Breath sounds equal, clear to auscultation bilaterally. No wheezes, and no crackles. No accessory muscle use. HEART: Regular rate and rhythm, normal S1 and S2 without murmur, rub or gallop. ABDOMEN: Soft, nontender, not distended, normoactive bowel sounds, no guarding, no rebound, no masses. No hepatomegaly or splenomegaly. MUSCULOSKELETAL: Normal range of motion at all joints. No bony deformities or tenderness. No CVA tenderness. Left buttock normal; Right buttock: Erythematous irregular area, raised temperature, indurated area, no fluctuance,purulent drainage UPPER EXTREMITIES: 2+ pulses, warm, well-perfused. No cyanosis. No clubbing. No peripheral edema. CBC, BMP 01/12/17 05:35 01/12/17 05:35 Microbiology 01/10/17 14:40 Blood Culture - Preliminary Blood - Peripheral Venous NO GROWTH OBTAINED AFTER 24 HOURS, INCUBATION TO CONTINUE FOR 4 DAYS. 01/10/17 14:40 Blood Culture - Preliminary Blood - Peripheral Venous NO GROWTH OBTAINED AFTER 24 HOURS, INCUBATION TO CONTINUE FOR 4 DAYS. ASSESSMENT AND PLAN: # Sepsis secondary to cellulitis of the right buttock, suspected MRSA, wound is draining and there is no need for surgical I&D. Wound culture is sent .Improving . IV Clindamycin 600mg Q8H Blood culture results are pending CT shows no drainable collection IVF # Diabetes Mellitus- uncontrolled Insulin sliding scale will increase Levemir Diabetic diet diabetic education and counselling provided # Peripheral neuropathy on Gabapentin Disposition : d/c planning in 48 HR
[2017-01-12] MEDS: SODIUM CHLORIDE 1,000 ML IV SCH (12:19)
--- NOTE | 2017-01-12 13:01 | PN ---
Progress Note (short form) - Note Progress Note: Attending Surgeon Seen in f/u; states area has started to drain; feels the same o/w. VSS AF right buttock boggy/fluctuant; draining seropurulent material; erythema persists WBC 14.6 IMP:ABSSSI right buttocks PLAN: Recommend I and D in OR; he is amenable to this; for OR 01/13/17; r/b/t/a' s d/w him; please keep NPO after MN. Daniel Austin MD FACS
--- NOTE | 2017-01-12 14:38 | PN ---
Progress Note, Physician History of Present Illness: stable no new issues - Current Medication List Current Medications: Active Medications Docusate Sodium (Colace -) 100 mg PO BID PRN PRN Reason: CONSTIPATION Last Admin: 01/11/17 22:12 Dose: 100 mg Clindamycin Phosphate (Cleocin 600 Mg Premix Ivpb -) 50 mls @ 100 mls/hr IVPB Q8H-IV [facility] Last Admin: 01/12/17 09:07 Dose: 100 mls/hr Sodium Chloride (Normal Saline -) 1,000 mls @ 75 mls/hr IV ASDIR [facility] Last Admin: 01/12/17 12:19 Dose: 75 mls/hr Piperacillin Sod/Tazobactam Sod (Zosyn 3.375gm Ivpb (Pre-Docked)) 50 mls @ 100 mls/hr IVPB Q8H-IV [facility] PRN Reason: Protocol Last Admin: 01/12/17 09:06 Dose: 100 mls/hr Insulin Aspart (Novolog Vial Sliding Scale -) 1 vial SQ ACHS [facility] PRN Reason: Protocol Last Admin: 01/12/17 12:17 Dose: Not Given Insulin Aspart (Novolog Vial) 10 units SQ TIDAC [facility] Last Admin: 01/12/17 12:19 Dose: 10 units Insulin Detemir (Levemir Vial) 40 units SQ BID@0700,2200 [facility] Non-Formulary Medication (Gabapentin [Gralise]) 600 mg PO DAILY [facility] Senna (Senna -) 2 tab PO HS [facility] Last Admin: 01/11/17 22:12 Dose: 2 tab - Objective Vital Signs: Vital Signs Temperature 98.6 F 01/12/17 13:57 Pulse Rate 102 H 01/12/17 13:57 Respiratory Rate 18 01/12/17 13:57 Blood Pressure 105/61 01/12/17 13:57 O2 Sat by Pulse Oximetry (%) 92 L 01/12/17 10:00 Constitutional: Yes: No Distress, Calm Cardiovascular: Yes: Regular Rate and Rhythm Respiratory: Yes: Regular, CTA Bilaterally ...Rectal Exam: Yes: Other (rt gluteal abscess) Musculoskeletal: Yes: WNL Extremities: Yes: WNL Neurological: Yes: Alert, Oriented Labs: CBC, BMP 01/12/17 05:35 01/12/17 05:35 INR, PTT INR 1.21 (0.82-1.09) H 01/11/17 06:34 Assessment/Plan Patient is a 56 year old male with past medical history of DM, Peripheral neuropathy, GERD, MRSA in the wound and multiple boils in he past, came in with the chief complaints of the right buttock pain. Cellulitis /abscess of the right buttock Diabetes Mellitus Peripheral neuropathy plan will start patient on zosyn continue clinda i and d planned rest as per primary team
[2017-01-12] MEDS: SENNOSIDES 8.6MG TABLET (FP) PO SCH (21:38)
[2017-01-13] MEDS: oxyCODONE HCL 5 MG TABLET PO PRN ×3 (01:15→20:27)
[2017-01-13] MEDS: CLINDAMYCIN 600MG PREMIX IVPB 50 ML IVPB SCH ×3 (01:16→17:34)
[2017-01-13] MEDS: PIPERACILLIN/TAZOB 3.375 GM 50 ML IVPB SCH ×3 (01:16→18:45)
[2017-01-13] MEDS: SODIUM CHLORIDE 1,000 ML IV SCH ×3 (06:12→13:23)
[2017-01-13] MEDS: INSULIN DETEMIR 100 UNITS/ML MDV SQ SCH ×2 (06:17→21:54)
[2017-01-13] MEDS: INSULIN SLIDING SCALE (NOVOLOG) 1 VIAL SQ SCH ×4 (06:18→21:54)
[2017-01-13] MEDS: INSULIN (NOVOLOG) ASPART 100 UNITS/ML 10ML VIAL SQ SCH ×3 (06:18→17:40)
[2017-01-13 07:56] LABS: BASOPHIL 0.8 % (0-2.0); EOSINOPHIL 1.7 % (0-4.5); MCH 28.2 pg (25.7-33.7); MCHC 33.4 g/dl (32.0-35.9); MEAN CELL VOLUME 84.4 fl (80-96); MEAN PLT VOLUME 9.4 fl (7.5-11.1); NEUTROPHILS 72.9 % (42.8-82.8); PLATELET COUNT 214 K/MM3 (134-434); RDW 12.8 % (11.9-15.9); WHITE BLOOD COUNT 13.4 K/mm3 (4.0-10.0)
[2017-01-13 08:03] LABS: INR 1.38 (0.82-1.09); PROTHROMBIN TIME (PATIENT) 15.3 SEC (9.98-11.88)
[2017-01-13 08:05] LABS: ACTIVATED PTT 28.1 SECONDS (26.9-34.4)
[2017-01-13 08:25] LABS: ANION GAP 6 (8-16); CALCIUM 8.4 mg/dL (8.5-10.1); CO2 34 mmol/L (21-32); GLUCOSE,RANDOM 110 mg/dL (74-106)
[2017-01-13 08:26] LABS: CREATININE 0.6 mg/dL (0.7-1.3)
--- NOTE | 2017-01-13 09:51 | PN ---
Physical Exam: SUBJECTIVE: Patient seen and examined at bed side this morning. Complaints of pain in the right buttock. He mentioned he had chills yesterday which has resolved. Denies chest pain, sob, cough, palpitation, abdominal pain, nausea or vomiting. Bladder habit normal. Sleep normal. Yesterday, he had a temp of 100.1 F. This morning he is afebrile. OBJECTIVE: Vital Signs Period Temp Pulse Resp BP Sys/Ji Pulse Ox Last 24 Hr 98.1 F-100.1 F 92-109 18-20 102-132/59-76 92-94 GENERAL: Awake, alert, and fully oriented, in no acute distress. HEAD: Normal with no signs of trauma. EYES: Pupils equal, round and reactive to light, extraocular movements intact, sclera anicteric, conjunctiva clear. No lid lag. EARS, NOSE, THROAT: Ears normal, nares patent, oropharynx clear without exudates. Moist mucous membranes. NECK: Normal range of motion, supple without lymphadenopathy, JVD, or masses. LUNGS: Breath sounds equal, clear to auscultation bilaterally. No wheezes, and no crackles. No accessory muscle use. HEART: Regular rate and rhythm, normal S1 and S2 without murmur, rub or gallop. ABDOMEN: Soft, nontender, not distended, normoactive bowel sounds, no guarding, no rebound, no masses. No hepatomegaly or splenomegaly. MUSCULOSKELETAL: Normal range of motion at all joints. No bony deformities or tenderness. No CVA tenderness. Left buttock normal; Right buttock: Erythematous irregular area increased since admission, raised temperature, indurated area, fluctuance, minimal drainage of yellow seroanguinous fluid. UPPER EXTREMITIES: 2+ pulses, warm, well-perfused. No cyanosis. No clubbing. No peripheral edema. LOWER EXTREMITIES: 2+ pulses, warm, well-perfused. No calf tenderness. No peripheral edema. NEUROLOGICAL: No facial droop, Power-5/5 in all ext, sensation intact,Cranial nerves II-XII intact. Normal speech. Gait not observed. PSYCHIATRIC: Cooperative. Good eye contact. Appropriate mood and affect. SKIN: Warm, dry, normal turgor, no rashes or lesions noted, normal capillary refill. Laboratory Results - last 24 hr 01/11/17 01/12/17 01/12/17 18:20 12:16 16:42 WBC RBC Hgb Hct MCV MCHC RDW Plt Count MPV Neutrophils % Lymphocytes % Monocytes % Eosinophils % Basophils % INR PTT (Actin FS) Sodium Potassium Chloride Carbon Dioxide Anion Gap BUN Creatinine POC Glucometer 222.22466 134 109 Random Glucose Calcium 01/12/17 01/13/17 01/13/17 21:19 06:10 06:10 WBC 13.4 H RBC 4.78 Hgb 13.5 Hct 40.3 MCV 84.4 MCHC 33.4 RDW 12.8 Plt Count 214 MPV 9.4 Neutrophils % 72.9 Lymphocytes % 13.1 D Monocytes % 11.5 H Eosinophils % 1.7 D Basophils % 0.8 INR PTT (Actin FS) Sodium 141 Potassium 4.3 Chloride 101 Carbon Dioxide 34 H Anion Gap 6 L BUN 6 L D Creatinine 0.6 L POC Glucometer 191 Random Glucose 110 H D Calcium 8.4 L 01/13/17 01/13/17 06:10 06:11 WBC RBC Hgb Hct MCV MCHC RDW Plt Count MPV Neutrophils % Lymphocytes % Monocytes % Eosinophils % Basophils % INR 1.38 H PTT (Actin FS) 28.1 Sodium Potassium Chloride Carbon Dioxide Anion Gap BUN Creatinine POC Glucometer 119 Random Glucose Calcium Active Medications Generic Name Dose Route Start Last Admin Trade Name Freq PRN Reason Stop Dose Admin Docusate Sodium 100 mg 01/11/17 10:53 01/11/17 22:12 Colace - PO 100 mg BID PRN Administration CONSTIPATION Clindamycin Phosphate 50 mls @ 100 mls/hr 01/11/17 02:00 01/13/17 09:17 Cleocin 600 Mg Premix Ivpb - IVPB 100 mls/hr Q8H-IV [facility] Administration Sodium Chloride 1,000 mls @ 75 mls/hr 01/11/17 13:18 01/13/17 06:12 Normal Saline - IV 75 mls/hr ASDIR [facility] Administration Piperacillin Sod/Tazobactam Sod 50 mls @ 100 mls/hr 01/11/17 18:00 01/13/17 01: 16 Zosyn 3.375gm Ivpb (Pre-Docked) IVPB 100 mls/hr Q8H-IV [facility] Administration Protocol Insulin Aspart 1 vial 01/10/17 22:00 01/13/17 06:18 Novolog Vial Sliding Scale - SQ Not Given ACHS [facility] Protocol Insulin Aspart 10 units 01/11/17 07:00 01/13/17 06:18 Novolog Vial SQ Not Given TIDAC [facility] Insulin Detemir 40 units 01/12/17 07:20 01/13/17 06:17 Levemir Vial SQ Not Given BID@0700,2200 [facility] Non-Formulary Medication 600 mg 01/11/17 10:00 Gabapentin [Gralise] PO DAILY [facility] Oxycodone HCl 5 mg 01/12/17 18:18 01/13/17 01:15 Roxicodone - PO 5 mg Q6H PRN Administration PAIN Senna 2 tab 01/11/17 22:00 01/12/17 21:38 Senna - PO 2 tab HS [facility] Administration ASSESSMENT/PLAN: Patient is a 56 year old male with past medical history of DM, Peripheral neuropathy, GERD, MRSA in the wound and multiple boils in he past, came in with the chief complaints of the right buttock pain. # Cellulitis of the right buttock s/p Incision and Drainage today. s/p I/D-Minimal blood loss, Kerlex packing done. Admitted in Med-Surg. Has a h/o MRSA in the past. Blood culture negative. Wound culture- Group B Strep, Staphylococcus coagulase neg; Diphtheroid/Corynaebacterium. IV NS @ 75mls.hr IV Clindamycin 600mg Q8H. Continue IV Zosyn 3.375 gm Q8H. Oxycodone 5mg PO Q6H Senna and Colace for constipation. # Diabetes Mellitus HbA1c 13.5 Continue Lispro; Insulin sliding scale and Levemir 40 U BID Hold Metformin Diabetic diet # Peripheral neuropathy Gabapentin # FEN IV NS @ 75mls/hr Electrolytes to be repeated tomorrow Diabetic diet # Prophyalxis FoR DVT- Ambulating. For GI: Not indicated # Code status: Full Code # Dispo: Admitted in Med-Surg. Duration of stay unknown. Illness, Investigation and Plan of care explained to the patient. He verbalized understanding. Case discussed with Dr. Muñoz. Visit type - Emergency Visit Emergency Visit: Yes ED Registration Date: 01/10/17 Care time: The patient presented to the Emergency Department on the above date and was hospitalized for further evaluation of their emergent condition. - New Patient This patient is new to me today: No - Critical Care Critical Care patient: No
[2017-01-13] MEDS ORDERED: MIDAZOLAM HCL 2 MG/2 ML SINGLE DOSE VIAL ONE (10:37)
[2017-01-13] MEDS ORDERED: PROPOFOL 20 ML ONE (10:37)
[2017-01-13] MEDS ORDERED: ONDANSETRON 4 MG/2 ML VIAL IVPUSH PRN (11:33)
[2017-01-13] MEDS ORDERED: ACETAMINOPHEN 1000 MG/100 ML VIAL (NON FORMULARY) IVPB PRN (11:34)
--- NOTE | 2017-01-13 11:51 | OP ---
Operative Note - Note: Operative Date: 01/13/17 Pre-Operative Diagnosis: right buttock abscess Operation: I and D right buttock abscess Findings: right buttock abscess Surgeon: Daniel Austin Anesthesia: General Specimens Removed: portion of abscess wall and C and S Estimated Blood Loss (mls): 10 Drains & Tubes with Location: Kerlex packing
[2017-01-13] MEDS ORDERED: OXYCODONE/APAP 5/325MG COMBO TABLET PO PRN (11:54)
--- NOTE | 2017-01-13 13:12 | PN ---
Teaching Attending Note Name of Resident: Mary Grace Gates ATTENDING PHYSICIAN STATEMENT I saw and evaluated the patient. I reviewed the resident's note and discussed the case with the resident. I agree with the resident's findings and plan as documented. SUBJECTIVE: pain is controlled,had low grade fever OBJECTIVE: Vital Signs Temperature 99.4 F 01/13/17 09:20 Pulse Rate 97 H 01/13/17 09:20 Respiratory Rate 20 01/13/17 09:20 Blood Pressure 127/75 01/13/17 09:20 O2 Sat by Pulse Oximetry (%) 94 L 01/12/17 21:00 ENERAL: Awake, alert, and fully oriented, in no acute distress. HEAD: Normal with no signs of trauma. EYES: Pupils equal, round and reactive to light, extraocular movements intact, sclera anicteric, conjunctiva clear. No lid lag. EARS, NOSE, THROAT: Ears normal, nares patent, oropharynx clear without exudates. Moist mucous membranes. NECK: Normal range of motion, supple without lymphadenopathy, JVD, or masses. LUNGS: Breath sounds equal, clear to auscultation bilaterally. No wheezes, and no crackles. No accessory muscle use. HEART: Regular rate and rhythm, normal S1 and S2 without murmur, rub or gallop. ABDOMEN: Soft, nontender, not distended, normoactive bowel sounds, no guarding, no rebound, no masses. No hepatomegaly or splenomegaly. MUSCULOSKELETAL: Normal range of motion at all joints. No bony deformities or tenderness. No CVA tenderness. Left buttock normal; Right buttock: Erythematous irregular area, raised temperature, indurated area, no fluctuance,purulent drainage UPPER EXTREMITIES: 2+ pulses, warm, well-perfused. No cyanosis. No clubbing. No peripheral edema. CBC, BMP 01/13/17 06:10 01/13/17 06:10 ASSESSMENT AND PLAN: # Sepsis secondary to cellulitis of the right buttock, suspected MRSA, wound is draining and there is no need for surgical I&D. Wound culture is sent .Improving . IV Clindamycin 600mg Q8H due to history of MRSA Blood culture results arenegative to date S/P I&D today # Diabetes Mellitus- better control Insulin sliding scale Diabetic diet diabetic education and counselling provided # Peripheral neuropathy on Gabapentin DISPOSITION : C/W IV clindamycin Q8Hr, await final cultures , monitor for improvement . When afebrile for more then 24Hr may plan for D/C on oral antibiotics according to final culture results
[2017-01-13] MEDS: ACETAMINOPHEN 325 MG TABLET (FP) PO PRN ×2 (13:20→20:27)
--- NOTE | 2017-01-13 14:05 | PN ---
Progress Note, Physician History of Present Illness: stable no new issues had i and d done of the abscess - Current Medication List Current Medications: Active Medications Acetaminophen (Ofirmev Injection -) 1,000 mg IVPB Q6H PRN PRN Reason: FEVER OR PAIN Stop: 01/14/17 05:35 Acetaminophen (Tylenol -) 650 mg PO Q4H PRN PRN Reason: PAIN Stop: 01/16/17 13:12 Last Admin: 01/13/17 13:20 Dose: 650 mg Docusate Sodium (Colace -) 100 mg PO BID PRN PRN Reason: CONSTIPATION Last Admin: 01/11/17 22:12 Dose: 100 mg Fentanyl (Sublimaze Injection -) 50 mcg IVPUSH [id number] PRN PRN Reason: PAIN Stop: 01/16/17 11:34 Last Admin: 01/13/17 11:45 Dose: 50 mcg Clindamycin Phosphate (Cleocin 600 Mg Premix Ivpb -) 50 mls @ 100 mls/hr IVPB Q8H-IV [facility] Last Admin: 01/13/17 09:17 Dose: 100 mls/hr Sodium Chloride (Normal Saline -) 1,000 mls @ 75 mls/hr IV ASDIR [facility] Last Admin: 01/13/17 13:23 Dose: Not Given Piperacillin Sod/Tazobactam Sod (Zosyn 3.375gm Ivpb (Pre-Docked)) 50 mls @ 100 mls/hr IVPB Q8H-IV [facility] PRN Reason: Protocol Last Admin: 01/13/17 13:06 Dose: 100 mls/hr Insulin Aspart (Novolog Vial Sliding Scale -) 1 vial SQ ACHS [facility] PRN Reason: Protocol Last Admin: 01/13/17 13:05 Dose: Not Given Insulin Aspart (Novolog Vial) 10 units SQ TIDAC [facility] Last Admin: 01/13/17 11:00 Dose: Not Given Insulin Detemir (Levemir Vial) 40 units SQ BID@0700,2200 [facility] Last Admin: 01/13/17 06:17 Dose: Not Given Non-Formulary Medication (Gabapentin [Gralise]) 600 mg PO DAILY [facility] Ondansetron HCl (Zofran Injection) 4 mg IVPUSH Q6H PRN PRN Reason: NAUSEA AND/OR VOMITING Stop: 01/13/17 17:34 Oxycodone HCl (Roxicodone -) 5 mg PO Q6H PRN PRN Reason: PAIN Last Admin: 01/13/17 01:15 Dose: 5 mg Oxycodone HCl (Roxicodone -) 10 mg PO Q4H PRN PRN Reason: PAIN Last Admin: 01/13/17 13:19 Dose: 10 mg Senna (Senna -) 2 tab PO HS [facility] Last Admin: 01/12/17 21:38 Dose: 2 tab - Objective Vital Signs: Vital Signs Temperature 98.3 F 01/13/17 12:30 Pulse Rate 95 H 01/13/17 12:30 Respiratory Rate 19 01/13/17 12:30 Blood Pressure 131/54 01/13/17 12:30 O2 Sat by Pulse Oximetry (%) 94 L 01/13/17 12:00 Constitutional: Yes: No Distress, Calm HENT: Yes: Atraumatic Cardiovascular: Yes: Regular Rate and Rhythm Respiratory: Yes: Regular, CTA Bilaterally Gastrointestinal: Yes: Normal Bowel Sounds, Soft Musculoskeletal: Yes: Other Wound/Incision: Yes: Other Neurological: Yes: Alert, Oriented Psychiatric: Yes: Alert Labs: CBC, BMP 01/13/17 06:10 01/13/17 06:10 INR, PTT INR 1.38 (0.82-1.09) H 01/13/17 06:10 Assessment/Plan . Cellulitis /abscess of the right buttock Diabetes Mellitus Peripheral neuropathy plan continue current abx await for wound cx
[2017-01-13] MEDS ORDERED: INSULIN (NOVOLOG) ASPART 100 UNITS/ML 10ML VIAL ONE (21:44)
[2017-01-13] MEDS: SENNOSIDES 8.6MG TABLET (FP) PO SCH (22:01)
[2017-01-14] MEDS: CLINDAMYCIN 600MG PREMIX IVPB 50 ML IVPB SCH ×3 (01:21→18:17)
[2017-01-14] MEDS: oxyCODONE HCL 5 MG TABLET PO PRN ×4 (01:29→22:16)
[2017-01-14] MEDS: ACETAMINOPHEN 325 MG TABLET (FP) PO PRN ×4 (01:30→22:16)
[2017-01-14] MEDS: SODIUM CHLORIDE 1,000 ML IV SCH (01:55)
[2017-01-14] MEDS: PIPERACILLIN/TAZOB 3.375 GM 50 ML IVPB SCH ×3 (01:55→18:18)
[2017-01-14 06:41] LABS: MCH 27.9 pg (25.7-33.7); MCHC 33.2 g/dl (32.0-35.9); MEAN CELL VOLUME 84.2 fl (80-96); MEAN PLT VOLUME 8.5 fl (7.5-11.1); PLATELET COUNT 243 K/MM3 (134-434)
[2017-01-14] MEDS: INSULIN SLIDING SCALE (NOVOLOG) 1 VIAL SQ SCH ×4 (06:42→22:17)
[2017-01-14] MEDS: INSULIN (NOVOLOG) ASPART 100 UNITS/ML 10ML VIAL SQ SCH ×3 (08:30→18:16)
--- NOTE | 2017-01-14 08:44 | PN ---
Physical Exam: SUBJECTIVE: Patient seen and examined. sitting in bed eating breakfast. says his pain is intermittent 9/10 without pain meds, 4/10 with pain meds which is comfortable for him denies fever, chest pain, sob, abdominal pain. dressing to be changed by surgeon today. OBJECTIVE: Vital Signs Period Temp Pulse Resp BP Sys/Ji Pulse Ox Last 24 Hr 98.0 F-99.4 F 58-106 11-20 115-140/54-92 94-97 GENERAL: The patient is awake, alert, and fully oriented, in no acute distress. HEAD: Normal with no signs of trauma. EYES: PERRL, extraocular movements intact, sclera anicteric, conjunctiva clear. No ptosis. ENT: oropharynx clear without exudates, moist mucous membranes. NECK: Trachea midline, full range of motion, supple. LUNGS: Breath sounds equal, clear to auscultation bilaterally, no wheezes, no crackles, n HEART: Regular rate and rhythm, S1, S2 without murmur, rub or gallop. ABDOMEN: Soft, nontender, nondistended, normoactive bowel sounds, no guarding, EXTREMITIES: 2+ dorsalis pedis/radial pulses, warm, well-perfused, no edema. NEUROLOGICAL: Cranial nerves II through XII grossly intact. Normal speech Right buttox with CDI dressing in place Laboratory Results - last 24 hr 01/13/17 01/13/17 01/14/17 17:36 21:23 06:00 WBC 10.0 RBC 4.61 Hgb 12.9 Hct 38.8 MCV 84.2 MCHC 33.2 RDW 13.0 Plt Count 243 MPV 8.5 POC Glucometer 326 208 01/14/17 06:34 WBC RBC Hgb Hct MCV MCHC RDW Plt Count MPV POC Glucometer 123 Active Medications Generic Name Dose Route Start Last Admin Trade Name Freq PRN Reason Stop Dose Admin Acetaminophen 650 mg 01/13/17 13:13 01/14/17 01:30 Tylenol - PO 01/16/17 13:12 650 mg Q4H PRN Administration PAIN Docusate Sodium 100 mg 01/11/17 10:53 01/11/17 22:12 Colace - PO 100 mg BID PRN Administration CONSTIPATION Fentanyl 50 mcg 01/13/17 11:33 01/13/17 11:45 Sublimaze Injection - IVPUSH 01/16/17 11:34 50 mcg [id number] PRN Administration PAIN Clindamycin Phosphate 50 mls @ 100 mls/hr 01/11/17 02:00 01/14/17 01:21 Cleocin 600 Mg Premix Ivpb - IVPB 100 mls/hr Q8H-IV [facility] Administration Sodium Chloride 1,000 mls @ 75 mls/hr 01/11/17 13:18 01/14/17 01:55 Normal Saline - IV 75 mls/hr ASDIR [facility] Administration Piperacillin Sod/Tazobactam Sod 50 mls @ 100 mls/hr 01/11/17 18:00 01/14/17 01: 55 Zosyn 3.375gm Ivpb (Pre-Docked) IVPB 100 mls/hr Q8H-IV [facility] Administration Protocol Insulin Aspart 1 vial 01/10/17 22:00 01/14/17 06:42 Novolog Vial Sliding Scale - SQ Not Given ACHS [facility] Protocol Insulin Aspart 10 units 01/11/17 07:00 01/13/17 17:40 Novolog Vial SQ 10 units TIDAC [facility] Administration Insulin Detemir 40 units 01/12/17 07:20 01/13/17 21:54 Levemir Vial SQ 40 units BID@0700,2200 [facility] Administration Non-Formulary Medication 600 mg 01/11/17 10:00 Gabapentin [Gralise] PO DAILY [facility] Oxycodone HCl 5 mg 01/12/17 18:18 01/13/17 01:15 Roxicodone - PO 5 mg Q6H PRN Administration PAIN Oxycodone HCl 10 mg 01/13/17 13:13 01/14/17 01:29 Roxicodone - PO 10 mg Q4H PRN Administration PAIN Senna 2 tab 01/11/17 22:00 01/13/17 22:01 Senna - PO Not Given [facility] Microbiology 01/11/17 15:00 Abscess Gram Stain - Final 01/11/17 15:00 Abscess Wound Culture - Preliminary Strep Agalactiae Group B Staphylococcus Coagulase Neg Diphtheroid/Corynebacterium 01/10/17 14:40 Blood - Peripheral Venous Blood Culture - Preliminary NO GROWTH OBTAINED AFTER 96 HOURS, INCUBATION TO CONTINUE FOR 1 DAYS. 01/10/17 14:40 Blood - Peripheral Venous Blood Culture - Preliminary NO GROWTH OBTAINED AFTER 96 HOURS, INCUBATION TO CONTINUE FOR 1 DAYS. 01/13/17 11:30 Buttock - Right Gram Stain - Final 01/13/17 11:30 Buttock - Right Wound Culture - Preliminary Strep Agalactiae Group B ASSESSMENT/PLAN: 56 year old male with DM, peripheral neuropathy, hx of MRSA in the wound admitted for right buttox cellulitis, s/p I&D. #Cellulitis of right buttox s/p I&D POD #1 Cleocin q8hr + zosyn 3.375gm q8hr packing removed by surgeon today with instructions for light packing during dressing changes starting tomorrow patient will require VNS for home wound care pain control with oxycodone and gabapentin 300m po BID #Diabetes Mellitus - uncontrolled NISS and Levemir 40 U BID Hold Metformin Diabetic diet # Peripheral neuropathy Gabapentin 300mg po BID, short acting, pt normally takes long acting but it is not formulary at [facility] #constipation colace and senna, consider adding miralax if no resolution tomorrow DVT; pt is OOB and mobile in his room Visit type - Emergency Visit Emergency Visit: No - New Patient This patient is new to me today: Yes Date on this admission: 01/14/17 - Critical Care Critical Care patient: No
[2017-01-14] MEDS ORDERED: GABAPENTIN 300 MG CAPSULE (FP) PO PRN (09:03)
[2017-01-14] MEDS ORDERED: INSULIN DETEMIR 100 UNITS/ML MDV SQ ONE (09:11)
[2017-01-14] MEDS: INSULIN DETEMIR 100 UNITS/ML MDV SQ SCH ×2 (09:46→22:17)
[2017-01-14] MEDS ORDERED: GABAPENTIN PO SCH (10:00)
[2017-01-14] MEDS ORDERED: GABAPENTIN 300 MG CAPSULE (FP) PO SCH (10:00)
--- NOTE | 2017-01-14 11:17 | PN ---
Progress Note (short form) - Note Progress Note: Attending Surgeon POD#1 States he feels better VSS AF wound-packing removed; no purulent drainage; less indurtion and erythema; o/w negative WBC-nl Cultures noted IMP: doing well PLAN Wound care orders placed; continue present tx. Daniel Austin MD FACS
--- NOTE | 2017-01-14 11:25 | PN ---
Teaching Attending Note Name of Resident: Yesenia Peterson ATTENDING PHYSICIAN STATEMENT I saw and evaluated the patient. I reviewed the resident's note and discussed the case with the resident. I agree with the resident's findings and plan as documented. SUBJECTIVE: constipated Pain is 8/10 OBJECTIVE: Vital Signs Temperature 98.0 F 01/14/17 05:50 Pulse Rate 81 01/14/17 05:50 Respiratory Rate 18 01/14/17 05:50 Blood Pressure 140/87 01/14/17 05:50 O2 Sat by Pulse Oximetry (%) 97 01/13/17 21:00 ENERAL: Awake, alert, and fully oriented, in no acute distress. HEAD: Normal with no signs of trauma. EYES: Pupils equal, round and reactive to light, extraocular movements intact, sclera anicteric, conjunctiva clear. No lid lag. EARS, NOSE, THROAT: Ears normal, nares patent, oropharynx clear without exudates. Moist mucous membranes. NECK: Normal range of motion, supple without lymphadenopathy, JVD, or masses. LUNGS: Breath sounds equal, clear to auscultation bilaterally. No wheezes, and no crackles. No accessory muscle use. HEART: Regular rate and rhythm, normal S1 and S2 without murmur, rub or gallop. ABDOMEN: Soft, nontender, not distended, normoactive bowel sounds, no guarding, no rebound, no masses. No hepatomegaly or splenomegaly. MUSCULOSKELETAL: Normal range of motion at all joints. No bony deformities or tenderness. No CVA tenderness. Left buttock normal; Right buttock: Erythematous irregular area, raised temperature, indurated area, no fluctuance,purulent drainage UPPER EXTREMITIES: 2+ pulses, warm, well-perfused. No cyanosis. No clubbing. No peripheral edema. Laboratory 01/10/17 01/10/17 01/10/17 14:40 14:40 14:40 WBC 15.3 K/mm3 H D K/mm3 (4.0-10.0) RBC 5.45 M/mm3 M/mm3 (4.00-5.60) Hgb 15.3 GM/dL GM/dL (11.7-16.9) Hct 46.1 % % (35.4-49) MCV 84.6 fl fl (80-96) MCHC 33.2 g/dl g/dl (32.0-35.9) RDW 12.8 % % (11.9-15.9) Plt Count 204 K/MM3 D K/MM3 (134-434) MPV 9.4 fl D fl (7.5-11.1) Neutrophils % 79.2 % D % (42.8-82.8) Lymphocytes % 10.4 % D % (8-40) Monocytes % 9.4 % % (3.8-10.2) Eosinophils % 0.2 % D % (0-4.5) Basophils % 0.8 % % (0-2.0) INR 1.23 H (0.82-1.09) PTT (Actin FS) VBG pH POC VBG pCO2 POC VBG pO2 Mixed VBG HCO3 Sodium 133 mmol/L L mmol/L (136-145) Potassium 3.8 mmol/L mmol/L (3.5-5.1) Chloride 96 mmol/L L mmol/L (98-107) Carbon Dioxide 28 mmol/L mmol/L (21-32) Anion Gap 9 (8-16) BUN 12 mg/dL mg/dL (7-18) Creatinine 0.8 mg/dL mg/dL (0.7-1.3) Creat Clearance w eGFR > 60 (>60) POC Glucometer Random Glucose 294 mg/dL H mg/dL (74-106) Hemoglobin A1c % Lactic Acid Calcium 8.6 mg/dL mg/dL (8.5-10.1) Total Bilirubin 1.5 mg/dL H D mg/dL (0.2-1.0) AST 9 U/L L D U/L (15-37) ALT 19 U/L D U/L (12-78) Alkaline Phosphatase 96 U/L U/L (45-117) Creatine Kinase 48 IU/L IU/L (39-308) Troponin I < 0.02 ng/ml ng/ml (0.00-0.05) Total Protein 7.0 g/dl g/dl (6.4-8.2) Albumin 3.2 g/dl L g/dl (3.4-5.0) Triglycerides Cholesterol Total LDL Cholesterol HDL Cholesterol 01/10/17 01/10/17 01/10/17 14:40 14:45 20:43 WBC RBC Hgb Hct MCV MCHC RDW Plt Count MPV Neutrophils % Lymphocytes % Monocytes % Eosinophils % Basophils % INR PTT (Actin FS) VBG pH 7.38 (7.32-7.42) POC VBG pCO2 49.7 mmHg mmHg (38-52) POC VBG pO2 24.3 mmHg L mmHg (28-48) Mixed VBG HCO3 28.5 meq/L H meq/L (19-25) Sodium Potassium Chloride Carbon Dioxide Anion Gap BUN Creatinine Creat Clearance w eGFR POC Glucometer Random Glucose Hemoglobin A1c % Lactic Acid 1.9 mmol/L mmol/L 2.0 mmol/L mmol/L (0.4-2.0) (0.4-2.0) Calcium Total Bilirubin AST ALT Alkaline Phosphatase Creatine Kinase Troponin I Total Protein Albumin Triglycerides Cholesterol Total LDL Cholesterol HDL Cholesterol 01/10/17 01/11/17 01/11/17 21:10 06:00 06:00 WBC 14.3 K/mm3 H K/mm3 (4.0-10.0) RBC 4.82 M/mm3 M/mm3 (4.00-5.60) Hgb 13.6 GM/dL D GM/dL (11.7-16.9) Hct 40.7 % % (35.4-49) MCV 84.6 fl fl (80-96) MCHC 33.5 g/dl g/dl (32.0-35.9) RDW 12.8 % % (11.9-15.9) Plt Count 187 K/MM3 K/MM3 (134-434) MPV 9.4 fl fl (7.5-11.1) Neutrophils % 78.5 % % (42.8-82.8) Lymphocytes % 10.0 % % (8-40) Monocytes % 10.7 % H % (3.8-10.2) Eosinophils % 0.2 % % (0-4.5) Basophils % 0.6 % % (0-2.0) INR PTT (Actin FS) VBG pH POC VBG pCO2 POC VBG pO2 Mixed VBG HCO3 Sodium Potassium Chloride Carbon Dioxide Anion Gap BUN Creatinine Creat Clearance w eGFR POC Glucometer [phone] UNITS UNITS (()) Random Glucose Hemoglobin A1c % Lactic Acid Calcium Total Bilirubin AST ALT Alkaline Phosphatase Creatine Kinase Troponin I Total Protein Albumin Triglycerides Cancelled Cholesterol Cancelled Total LDL Cholesterol Cancelled HDL Cholesterol Cancelled 01/11/17 01/11/1701/11/17 06:00 06:34 06:34 WBC RBC Hgb Hct MCV MCHC RDW Plt Count MPV Neutrophils % Lymphocytes % Monocytes % Eosinophils % Basophils % INR 1.21 H (0.82-1.09) PTT (Actin FS) 27.3 SECONDS SECONDS (26.9-34.4) VBG pH POC VBG pCO2 POC VBG pO2 Mixed VBG HCO3 Sodium 137 mmol/L mmol/L (136-145) Potassium 3.9 mmol/L mmol/L (3.5-5.1) Chloride 102 mmol/L mmol/L (98-107) Carbon Dioxide 25 mmol/L mmol/L (21-32) Anion Gap 10 (8-16) BUN 9 mg/dL D mg/dL (7-18) Creatinine 0.5 mg/dL L D mg/dL (0.7-1.3) Creat Clearance w eGFR > 60 (>60) POC Glucometer Random Glucose 218 mg/dL H D mg/dL (74-106) Hemoglobin A1c % 13.5 % H D % (4.8-6.0) Lactic Acid Calcium 8.0 mg/dL L mg/dL (8.5-10.1) Total Bilirubin 1.1 mg/dL H D mg/dL (0.2-1.0) AST 15 U/L D U/L (15-37) ALT 17 U/L U/L (12-78) Alkaline Phosphatase 84 U/L U/L (45-117) Creatine Kinase Troponin I Total Protein 5.9 g/dl L g/dl (6.4-8.2) Albumin 2.7 g/dl L g/dl (3.4-5.0) Triglycerides 91 mg/dL D mg/dL (35-160) Cholesterol 186 mg/dL mg/dL (50-200) Total LDL Cholesterol 128 mg/dL H mg/dL (5-100) HDL Cholesterol 50 mg/dL D mg/dL (40-60) 01/11/17 01/11/17 01/11/17 11:07 18:20 21:59 WBC RBC Hgb Hct MCV MCHC RDW Plt Count MPV Neutrophils % Lymphocytes % Monocytes % Eosinophils % Basophils % INR PTT (Actin FS) VBG pH POC VBG pCO2 POC VBG pO2 Mixed VBG HCO3 Sodium Potassium Chloride Carbon Dioxide Anion Gap BUN Creatinine Creat Clearance w eGFR POC Glucometer [phone] UNITS UNITS 222.44378 UNITS UNITS 249 UNITS UNITS (()) (()) (()) Random Glucose Hemoglobin A1c % Lactic Acid Calcium Total Bilirubin AST ALT Alkaline Phosphatase Creatine Kinase Troponin I Total Protein Albumin Triglycerides Cholesterol Total LDL Cholesterol HDL Cholesterol 01/12/17 01/12/17 01/12/17 05:35 05:35 06:16 WBC 14.6 K/mm3 H K/mm3 (4.0-10.0) RBC 4.71 M/mm3 M/mm3 (4.00-5.60) Hgb 13.4 GM/dL GM/dL (11.7-16.9) Hct 39.9 % % (35.4-49) MCV 84.8 fl fl (80-96) MCHC 33.5 g/dl g/dl (32.0-35.9) RDW 12.7 % % (11.9-15.9) Plt Count 190 K/MM3 K/MM3 (134-434) MPV 9.5 fl fl (7.5-11.1) Neutrophils % Lymphocytes % Monocytes % Eosinophils % Basophils % INR PTT (Actin FS) VBG pH POC VBG pCO2 POC VBG pO2 Mixed VBG HCO3 Sodium 138 mmol/L mmol/L (136-145) Potassium 3.6 mmol/L mmol/L (3.5-5.1) Chloride 99 mmol/L mmol/L (98-107) Carbon Dioxide 29 mmol/L mmol/L (21-32) Anion Gap 10 (8-16) BUN 8 mg/dL mg/dL (7-18) Creatinine 0.6 mg/dL L mg/dL (0.7-1.3) Creat Clearance w eGFR POC Glucometer 214 UNITS UNITS (()) Random Glucose 227 mg/dL H mg/dL (74-106) Hemoglobin A1c % Lactic Acid Calcium 8.2 mg/dL L mg/dL (8.5-10.1) Total Bilirubin AST ALT Alkaline Phosphatase Creatine Kinase Troponin I Total Protein Albumin Triglycerides Cholesterol Total LDL Cholesterol HDL Cholesterol 01/12/17 01/12/17 01/12/17 12:16 16:42 21:19 WBC RBC Hgb Hct MCV MCHC RDW Plt Count MPV Neutrophils % Lymphocytes % Monocytes % Eosinophils % Basophils % INR PTT (Actin FS) VBG pH POC VBG pCO2 POC VBG pO2 Mixed VBG HCO3 Sodium Potassium Chloride Carbon Dioxide Anion Gap BUN Creatinine Creat Clearance w eGFR POC Glucometer 134 UNITS UNITS 109 UNITS UNITS 191 UNITS UNITS (()) (()) (()) Random Glucose Hemoglobin A1c % Lactic Acid Calcium Total Bilirubin AST ALT Alkaline Phosphatase Creatine Kinase Troponin I Total Protein Albumin Triglycerides Cholesterol Total LDL Cholesterol HDL Cholesterol 01/13/17 01/13/17 01/13/17 06:10 06:10 06:10 WBC 13.4 K/mm3 H K/mm3 (4.0-10.0) RBC 4.78 M/mm3 M/mm3 (4.00-5.60) Hgb 13.5 GM/dL GM/dL (11.7-16.9) Hct 40.3 % % (35.4-49) MCV 84.4 fl fl (80-96) MCHC 33.4 g/dl g/dl (32.0-35.9) RDW 12.8 % % (11.9-15.9) Plt Count 214 K/MM3 K/MM3 (134-434) MPV 9.4 fl fl (7.5-11.1) Neutrophils % 72.9 % % (42.8-82.8) Lymphocytes % 13.1 % D % (8-40) Monocytes % 11.5 % H % (3.8-10.2) Eosinophils % 1.7 % D % (0-4.5) Basophils % 0.8 % % (0-2.0) INR 1.38 H (0.82-1.09) PTT (Actin FS) 28.1 SECONDS SECONDS (26.9-34.4) VBG pH POC VBG pCO2 POC VBG pO2 Mixed VBG HCO3 Sodium 141 mmol/L mmol/L (136-145) Potassium 4.3 mmol/L mmol/L (3.5-5.1) Chloride 101 mmol/L mmol/L (98-107) Carbon Dioxide 34 mmol/L H mmol/L (21-32) Anion Gap 6 L (8-16) BUN 6 mg/dL L D mg/dL (7-18) Creatinine 0.6 mg/dL L mg/dL (0.7-1.3) Creat Clearance w eGFR POC Glucometer Random Glucose 110 mg/dL H D mg/dL (74-106) Hemoglobin A1c % Lactic Acid Calcium 8.4 mg/dL L mg/dL (8.5-10.1) Total Bilirubin AST ALT Alkaline Phosphatase Creatine Kinase Troponin I Total Protein Albumin Triglycerides Cholesterol Total LDL Cholesterol HDL Cholesterol ASSESSMENT AND PLAN: # Sepsis secondary to cellulitis of the right buttock- resolved , cellulitis improving but area aound abscess is still indurated , suspected MRSA. S/P I&D .Packing is in place Clindamycin and Zosyn Blood culture results arenegative to date # Diabetes Mellitus- uncontrolled, needs tighter control in the setting of acute infection will increase basal insulin continue monitoring BG Diabetic diet diabetic education and counselling provided # Peripheral neuropathy on Gabapentin #Constipation - will order PRN senna DISPOSITION : will change dressing and packing tomorrow am, c/w with wound care daily, will need 24-48 hr of IV antibiotics due to lack of significant improvement, uncontrolled DM and risk of wound contamination .
--- NOTE | 2017-01-14 11:28 | PN ---
Progress Note (short form) - Note Progress Note: POD #1 - s/p I&D right buttock abscess under general anesthesia. Pt. doing well , resting comfortably in bed. No complaints. No apparent anesthetic complications noted. Continue current care.
[2017-01-14] MEDS ORDERED: INSULIN (NOVOLOG) ASPART 100 UNITS/ML 10ML VIAL ONE ×2 (13:14→22:11)
[2017-01-14] MEDS: PATIENT'S OWN MEDICATION (NON-FORMULARY) (Gabapentin [Gralise] 600 MG) PO SCH ×3 (13:39→20:47)
[2017-01-14] MEDS: SENNOSIDES 8.6MG TABLET (FP) PO SCH (22:15)
[2017-01-15] MEDS: CLINDAMYCIN 600MG PREMIX IVPB 50 ML IVPB SCH ×2 (01:02→09:25)
[2017-01-15] MEDS: PIPERACILLIN/TAZOB 3.375 GM 50 ML IVPB SCH ×3 (01:33→17:15)
[2017-01-15] MEDS: ACETAMINOPHEN 325 MG TABLET (FP) PO PRN ×2 (05:47→16:44)
[2017-01-15] MEDS: oxyCODONE HCL 5 MG TABLET PO PRN ×2 (05:48→16:42)
[2017-01-15 06:57] LABS: BASOPHIL 0.8 % (0-2.0); EOSINOPHIL 4.6 % (0-4.5); MCH 28.4 pg (25.7-33.7); MCHC 33.9 g/dl (32.0-35.9); MEAN CELL VOLUME 83.7 fl (80-96); MEAN PLT VOLUME 8.4 fl (7.5-11.1); NEUTROPHILS 59.8 % (42.8-82.8); PLATELET COUNT 270 K/MM3 (134-434); RDW 12.7 % (11.9-15.9); WHITE BLOOD COUNT 7.3 K/mm3 (4.0-10.0)
[2017-01-15] MEDS: INSULIN (NOVOLOG) ASPART 100 UNITS/ML 10ML VIAL SQ SCH ×3 (08:00→16:51)
[2017-01-15] MEDS: INSULIN SLIDING SCALE (NOVOLOG) 1 VIAL SQ SCH ×4 (08:00→21:14)
--- NOTE | 2017-01-15 08:58 | PN ---
Physical Exam: SUBJECTIVE: Patient seen and examined at bedside. OBJECTIVE: Vital Signs Period Temp Pulse Resp BP Sys/Ji Pulse Ox Last 24 Hr 98.0 F-98.9 F 80-88 18-20 117-146/58-78 94-94 GENERAL: The patient is awake, alert, and fully oriented, in no acute distress. HEAD: Normal with no signs of trauma. EYES: PERRL, extraocular movements intact, sclera anicteric, conjunctiva clear. No ptosis. LUNGS: Breath sounds equal, clear to auscultation bilaterally, no wheezes, no crackles, no accessory muscle use. HEART: Regular rate and rhythm, S1, S2 without murmur, rub or gallop. ABDOMEN: Soft, nontender, nondistended, normoactive bowel sounds, no guarding, no rebound BUTTOCK: Surgical incision site right buttock with iodoform packing, copious serosanguinous drainage, no odor; surrounding area is indurated, erythematous, warm and tender EXTREMITIES: 2+ pulses, warm, well-perfused, no edema. NEUROLOGICAL: Cranial nerves II through XII grossly intact. Normal speech, gait not observed. Laboratory Results - last 24 hr 01/14/17 01/14/17 01/14/17 12:54 18:00 22:07 WBC RBC Hgb Hct MCV MCHC RDW Plt Count MPV Neutrophils % Lymphocytes % Monocytes % Eosinophils % Basophils % POC Glucometer 172 128 270 01/15/17 01/15/17 05:51 06:00 WBC 7.3 RBC 4.48 Hgb 12.7 Hct 37.5 MCV 83.7 MCHC 33.9 RDW 12.7 Plt Count 270 MPV 8.4 Neutrophils % 59.8 Lymphocytes % 22.7 D Monocytes % 12.1 H Eosinophils % 4.6 H D Basophils % 0.8 POC Glucometer 152 Active Medications Generic Name Dose Route Start Last Admin Trade Name Freq PRN Reason Stop Dose Admin Acetaminophen 650 mg 01/13/17 13:13 01/15/17 05:47 Tylenol - PO 01/16/17 13:12 650 mg Q4H PRN Administration PAIN Docusate Sodium 100 mg 01/11/17 10:53 01/11/17 22:12 Colace - PO 100 mg BID PRN Administration CONSTIPATION Fentanyl 50 mcg 01/13/17 11:33 01/13/17 11:45 Sublimaze Injection - IVPUSH 01/16/17 11:34 50 mcg [id number] PRN Administration PAIN Gabapentin 300 mg 01/14/17 09:03 Neurontin - PO BID PRN MODERATE PAIN Clindamycin Phosphate 50 mls @ 100 mls/hr 01/11/17 02:00 01/15/17 01:02 Cleocin 600 Mg Premix Ivpb - IVPB 100 mls/hr Q8H-IV CAMRON Administration Sodium Chloride 1,000 mls @ 75 mls/hr 01/11/17 13:18 01/14/17 01:55 Normal Saline - IV 75 mls/hr ASDIR CAMRON Administration Piperacillin Sod/Tazobactam Sod 50 mls @ 100 mls/hr 01/11/17 18:00 01/15/17 01: 33 Zosyn 3.375gm Ivpb (Pre-Docked) IVPB 100 mls/hr Q8H-IV CAMRON Administration Protocol Insulin Aspart 1 vial 01/10/17 22:00 01/14/17 22:17 Novolog Vial Sliding Scale - SQ 6 units ACHS COUNT INCLUDES THE [facility] Administration Protocol Insulin Aspart 10 units 01/11/17 07:00 01/14/17 18:16 Novolog Vial SQ Not Given TIDAC COUNT INCLUDES THE [facility] Insulin Detemir 40 units 01/12/17 07:20 01/14/17 22:17 Levemir Vial SQ 40 units BID@0700,2200 [facility] Administration Oxycodone HCl 5 mg 01/12/17 18:18 01/13/17 01:15 Roxicodone - PO 5 mg Q6H PRN Administration PAIN Oxycodone HCl 10 mg 01/13/17 13:13 01/15/17 05:48 Roxicodone - PO 10 mg Q4H PRN Administration PAIN Senna 2 tab 01/11/17 22:00 01/14/17 22:15 Senna - PO 2 tab HS COUNT INCLUDES THE [facility] Administration ASSESSMENT/PLAN 56 year-old male with a significant PMH of IDDM with associated peripheral neuropathy and a h/o recurrent MRSA infections. Admitted for right buttock cellulitis. Cellulitis of right buttock --continue clinda (day #5) and Zosyn (day #5) --pain management with PO meds --ID following IDDM --poorly controlled, HgbA1C 13.5% --Levemir 40 units BID --Novolog sliding scale coverage Peripheral neuropathy --continue Gabapentin F/E/N Fluids: stop IV fluids; PO intake adequate Electrolytes: replete as indicated Nutrition: diabetic diet DVT prophylaxis: start Lovenox; oob, ambulation Physical therapy evaluation Dispo: continues to require inpatient care. Full Code. Visit type - Emergency Visit Emergency Visit: Yes ED Registration Date: 01/10/17 Care time: The patient presented to the Emergency Department on the above date and was hospitalized for further evaluation of their emergent condition. - New Patient This patient is new to me today: Yes Date on this admission: 01/15/17 - Critical Care Critical Care patient: No
[2017-01-15] MEDS: INSULIN DETEMIR 100 UNITS/ML MDV SQ SCH ×2 (09:22→21:13)
--- NOTE | 2017-01-15 11:36 | PN ---
Progress Note (short form) - Note Progress Note: Attending Surgeon POD #2 No c/o; wound care in progress VSS AF dressing c/d/i; no induration or erythema; o/w negative WBC WNL Cultures noted IMP: Improved PLAN: Continue LWC; rest of tx. per primary care team Daniel Austin MD FACS
[2017-01-15] MEDS: ENOXAPARIN NA (PORCINE) 40 MG/0.4 ML DISP.SYRIN SQ SCH (11:43)
--- NOTE | 2017-01-15 13:43 | PN ---
Progress Note, Physician History of Present Illness: stable doing well wound draining site looking good pain severe - Current Medication List Current Medications: Active Medications Acetaminophen (Tylenol -) 650 mg PO Q4H PRN PRN Reason: PAIN Stop: 01/16/17 13:12 Last Admin: 01/15/17 05:47 Dose: 650 mg Docusate Sodium (Colace -) 100 mg PO BID PRN PRN Reason: CONSTIPATION Last Admin: 01/11/17 22:12 Dose: 100 mg Enoxaparin Sodium (Lovenox -) 40 mg SQ DAILY [facility] Last Admin: 01/15/17 11:43 Dose: 40 mg Gabapentin (Neurontin -) 300 mg PO BID PRN PRN Reason: MODERATE PAIN Piperacillin Sod/Tazobactam Sod (Zosyn 3.375gm Ivpb (Pre-Docked)) 50 mls @ 100 mls/hr IVPB Q8H-IV [facility]RON PRN Reason: Protocol Last Admin: 01/15/17 09:25 Dose: 100 mls/hr Insulin Aspart (Novolog Vial Sliding Scale -) 1 vial SQ ACHS [facility] PRN Reason: Protocol Last Admin: 01/15/17 11:46 Dose: Not Given Insulin Aspart (Novolog Vial) 10 units SQ TIDAC [facility] Last Admin: 01/15/17 11:46 Dose: 10 units Insulin Detemir (Levemir Vial) 40 units SQ BID@0700,2200 [facility] Last Admin: 01/15/17 09:22 Dose: 40 units Oxycodone HCl (Roxicodone -) 10 mg PO Q4H PRN PRN Reason: PAIN Last Admin: 01/15/17 05:48 Dose: 10 mg Senna (Senna -) 2 tab PO HS [facility] Last Admin: 01/14/17 22:15 Dose: 2 tab - Objective Vital Signs: Vital Signs Temperature 98.3 F 01/15/17 10:00 Pulse Rate 78 01/15/17 10:00 Respiratory Rate 20 01/15/17 10:00 Blood Pressure 123/82 01/15/17 10:00 O2 Sat by Pulse Oximetry (%) 95 01/15/17 10:00 Constitutional: Yes: No Distress, Calm Cardiovascular: Yes: Regular Rate and Rhythm Respiratory: Yes: Regular, CTA Bilaterally Gastrointestinal: Yes: Normal Bowel Sounds, Soft Musculoskeletal: Yes: Other Extremities: Yes: Other Wound/Incision: Yes: Draining, Other Neurological: Yes: Alert, Oriented Psychiatric: Yes: Alert, Oriented Labs: CBC, BMP 01/15/17 06:00 01/13/17 06:10 INR, PTT INR 1.38 (0.82-1.09) H 01/13/17 06:10 Assessment/Plan . Cellulitis /abscess of the right buttock Diabetes Mellitus Peripheral neuropathy plan wound cx result noted will stop iv clinda if wound looks good tomorrow will switch to oral medications
[2017-01-15] MEDS: SENNOSIDES 8.6MG TABLET (FP) PO SCH (21:11)
[2017-01-16] MEDS: oxyCODONE HCL 5 MG TABLET PO PRN ×2 (00:12→09:14)
[2017-01-16] MEDS: ACETAMINOPHEN 325 MG TABLET (FP) PO PRN ×2 (00:13→09:15)
[2017-01-16] MEDS: PIPERACILLIN/TAZOB 3.375 GM 50 ML IVPB SCH ×3 (01:58→17:30)
[2017-01-16 08:01] LABS: BASOPHIL 0.8 % (0-2.0); EOSINOPHIL 3.8 % (0-4.5); MCH 28.2 pg (25.7-33.7); MCHC 33.4 g/dl (32.0-35.9); MEAN CELL VOLUME 84.4 fl (80-96); MEAN PLT VOLUME 8.2 fl (7.5-11.1); NEUTROPHILS 53.7 % (42.8-82.8); PLATELET COUNT 313 K/MM3 (134-434); WHITE BLOOD COUNT 7.9 K/mm3 (4.0-10.0)
[2017-01-16] MEDS: INSULIN SLIDING SCALE (NOVOLOG) 1 VIAL SQ SCH ×4 (08:36→21:03)
[2017-01-16] MEDS: INSULIN DETEMIR 100 UNITS/ML MDV SQ SCH ×2 (08:36→21:02)
[2017-01-16] MEDS: INSULIN (NOVOLOG) ASPART 100 UNITS/ML 10ML VIAL SQ SCH ×3 (08:36→17:35)
[2017-01-16 09:14] LABS: ALK PHOS 166 U/L (45-117); BILIRUBIN,TOTAL 0.3 mg/dL (0.2-1.0); CALCIUM 9.1 mg/dL (8.5-10.1); SGOT/AST 32 U/L (15-37); SGPT/ALT 56 U/L (12-78); TOT PROT 6.5 g/dl (6.4-8.2)
[2017-01-16] MEDS: ENOXAPARIN NA (PORCINE) 40 MG/0.4 ML DISP.SYRIN SQ SCH (09:16)
[2017-01-16 09:34] LABS: ALBUMIN 2.5 g/dl (3.4-5.0); ANION GAP 8 (8-16); CO2 33 mmol/L (21-32); CREATININE 0.6 mg/dL (0.7-1.3); GLUCOSE,RANDOM 119 mg/dL (74-106); MAGNESIUM 2.6 mg/dL (1.8-2.4)
--- NOTE | 2017-01-16 12:55 | PATH ---
Surgical Pathology Report Patient Name: ZARINA RIOS [facility]. Rec. #: [id number] /Age/Gender: 1960 (Age: 56) / M Account: [id number] Location: [facility] PEDS/ADOL Taken: 01/13/2017 Received: 01/13/2017 Reported: 01/16/2017 Physicians: MD Andi Wright M.D. Specimen(s) Received RIGHT BUTTOCK ABSCESS CAVITY Clinical History Right buttock abscess Final Diagnosis SOFT TISSUE, RIGHT BUTTOCK, ABSCESS CAVITY, INCISION AND DRAINAGE: ACUTE NECROTIZING INFLAMMATION AND GANGRENOUS NECROSIS. Electronically Signed Juan Fall M.D. Gross Description Received in formalin labeled "right buttock abscess cavity" is a 1.8 x 1.0 x 0.2 cm aggregate of pink-berry, necrotic-appearing portions of soft tissue. The specimen is submitted in toto in one cassette. /01/13/201701/13/2017
[2017-01-16] MEDS: POLYETHYLENE GLYCOL 3350 119 GM BTL PO SCH (15:35)
--- NOTE | 2017-01-16 17:36 | PN ---
Teaching Attending Note Name of Resident: Mary Grace Gates ATTENDING PHYSICIAN STATEMENT I saw and evaluated the patient. I reviewed the resident's note and discussed the case with the resident. I agree with the resident's findings and plan as documented. SUBJECTIVE: no fever ro chills, has pain in R buttock when sitting . has constipation OBJECTIVE: NAD CV : RRR Lungs : CTAB ext : no edema R buttock area with an incision wound with no drainage and clear base. surrounded by L endurated area, no erythema but hyperpigmented skin . ASSESSMENT AND PLAN: 56 y/o man with h/o DM , CAD who presented with R buttock cellulitis and abscess formation 1- R buttock abscess : s/p I&D . improved will switch to po abx , after consulting with Dr. Barrios local wound care and packing 2- DM : levemir 40 BID and standing 10 units of novolog and SI 3- dispo : possible dc tomorrow f/u with sx .
--- NOTE | 2017-01-16 17:58 | PN ---
Physical Exam: SUBJECTIVE: Patient seen and examined at bed side this morning. Says the pain in the right buttock still persists but improving. Denies chest pain, sob, cough , palpitation, abdominal pain, nausea or vomiting. Complaining of constipation. Bladder habit normal. Sleep-disturbed. OBJECTIVE: Vital Signs Period Temp Pulse Resp BP Sys/Ji Pulse Ox Last 24 Hr 97.8 F-98.2 F 74-82 18-20 125-145/69-92 96-96 GENERAL: Awake, alert, and fully oriented, in no acute distress. HEAD: Normal with no signs of trauma. EYES: Pupils equal, round and reactive to light, extraocular movements intact, sclera anicteric, conjunctiva clear. No lid lag. EARS, NOSE, THROAT: Ears normal, nares patent, oropharynx clear without exudates. Moist mucous membranes. NECK: Normal range of motion, supple without lymphadenopathy, JVD, or masses. LUNGS: Breath sounds equal, clear to auscultation bilaterally. No wheezes, and no crackles. No accessory muscle use. HEART: Regular rate and rhythm, normal S1 and S2 without murmur, rub or gallop. ABDOMEN: Soft, nontender, not distended, normoactive bowel sounds, no guarding, no rebound, no masses. No hepatomegaly or splenomegaly. MUSCULOSKELETAL: Normal range of motion at all joints. No bony deformities or tenderness. No CVA tenderness. Left buttock normal; Right buttock: Incision around 1 cm x 3cm-minimal drainage of yellow seroanguinous fluid. Erythematous irregular area decreased since admission, indurated area decreased, tender to palpation. UPPER EXTREMITIES: 2+ pulses, warm, well-perfused. No cyanosis. No clubbing. No peripheral edema. LOWER EXTREMITIES: 2+ pulses, warm, well-perfused. No calf tenderness. No peripheral edema. NEUROLOGICAL: No facial droop, Power-5/5 in all ext, sensation intact,Cranial nerves II-XII intact. Normal speech. Gait not observed. PSYCHIATRIC: Cooperative. Good eye contact. Appropriate mood and affect. SKIN: Warm, dry, normal turgor, no rashes or lesions noted, normal capillary refill. Laboratory Results - last 24 hr 01/15/17 01/16/17 01/16/17 20:23 05:59 06:58 WBC 7.9 RBC 4.76 Hgb 13.4 Hct 40.1 MCV 84.4 MCHC 33.4 RDW 13.0 Plt Count 313 MPV 8.2 Neutrophils % 53.7 Lymphocytes % 28.7 D Monocytes % 13.0 H Eosinophils % 3.8 Basophils % 0.8 Sodium Potassium Chloride Carbon Dioxide Anion Gap BUN Creatinine Creat Clearance w eGFR POC Glucometer 207 152 Random Glucose Calcium Magnesium Total Bilirubin AST ALT Alkaline Phosphatase Total Protein Albumin 01/16/17 01/16/17 01/16/17 06:58 11:34 17:29 WBC RBC Hgb Hct MCV MCHC RDW Plt Count MPV Neutrophils % Lymphocytes % Monocytes % Eosinophils % Basophils % Sodium 141 Potassium 3.8 Chloride 100 Carbon Dioxide 33 H Anion Gap 8 BUN 5 L Creatinine 0.6 L Creat Clearance w eGFR > 60 POC Glucometer 136 136 Random Glucose 119 H Calcium 9.1 Magnesium 2.6 H D Total Bilirubin 0.3 D AST 32 D ALT 56 D Alkaline Phosphatase 166 H D Total Protein 6.5 Albumin 2.5 L Active Medications Generic Name Dose Route Start Last Admin Trade Name Freq PRN Reason Stop Dose Admin Docusate Sodium 100 mg 01/11/17 10:53 01/11/17 22:12 Colace - PO 100 mg BID PRN Administration CONSTIPATION Enoxaparin Sodium 40 mg 01/15/17 10:00 01/16/17 09:16 Lovenox - SQ 40 mg DAILY CAMRON Administration Gabapentin 300 mg 01/14/17 09:03 Neurontin - PO BID PRN MODERATE PAIN Piperacillin Sod/Tazobactam Sod 50 mls @ 100 mls/hr 01/11/17 18:00 01/16/17 17: 30 Zosyn 3.375gm Ivpb (Pre-Docked) IVPB 100 mls/hr Q8H-IV CAMRON Administration Protocol Insulin Aspart 1 vial 01/10/17 22:00 01/16/17 17:36 Novolog Vial Sliding Scale - SQ Not Given ACHS REPLACED BY [facility] Protocol Insulin Aspart 10 units 01/11/17 07:00 01/16/17 17:35 Novolog Vial SQ 10 units TIDAC CAMRON Administration Insulin Detemir 40 units 01/12/17 07:20 01/16/17 08:36 Levemir Vial SQ 40 units BID@0700,2200 CAMRON Administration Oxycodone HCl 10 mg 01/13/17 13:13 01/16/17 09:14 Roxicodone - PO 10 mg Q4H PRN Administration PAIN Polyethylene Glycol 17 gm 01/16/17 15:45 01/16/17 15:35 Miralax (For Daily Use) - PO 17 gm DAILY CAMRON Administration Senna 2 tab 01/11/17 22:00 01/15/17 21:11 Senna - PO 2 tab HS CAMRON Administration ASSESSMENT/PLAN: Patient is a 56 year old male with past medical history of DM, Peripheral neuropathy, GERD, MRSA in the wound and multiple boils in he past, came in with the chief complaints of the right buttock pain. # Cellulitis of the right buttock s/p Incision and Drainage POD 3 Admitted in [facility]-Surg. Has a h/o MRSA in the past. Blood culture negative. Wound culture- Group B Strep, Staphylococcus coagulase neg; Diphtheroid/Corynaebacterium. Continue IV Zosyn 3.375 gm Q8H Day 6. Oxycodone 5mg PO Q6H Senna and Colace for constipation. # Diabetes Mellitus HbA1c 13.5 Continue Lispro; Insulin sliding scale 10 U TIDAC and Levemir 40 U BID Hold Metformin Diabetic diet # Peripheral neuropathy Gabapentin # GERD No active symptoms. # FEN Not on any IV fluids. Electrolytes to be repeated tomorrow Diabetic diet # Prophyalxis FoR DVT- Enoxaparin For GI: Not indicated # Code status: Full Code # Dispo: Admitted in [facility], will transfer to [facility]. Possible discharge tomorrow. Illness, Investigation and Plan of care explained to the patient. He verbalized understanding. Case discussed with Dr. Zapata. Visit type - Emergency Visit Emergency Visit: Yes ED Registration Date: 01/10/17 Care time: The patient presented to the Emergency Department on the above date and was hospitalized for further evaluation of their emergent condition. - New Patient This patient is new to me today: No - Critical Care Critical Care patient: No
--- NOTE | 2017-01-16 18:54 | PN ---
Progress Note, Physician History of Present Illness: stable doing well - Current Medication List Current Medications: Active Medications Amoxicillin/Clavulanate Potassium (Augmentin - 875mg Tablet) 1 tab PO BID@0800, 1730 [facility] Docusate Sodium (Colace -) 100 mg PO BID PRN PRN Reason: CONSTIPATION Last Admin: 01/11/17 22:12 Dose: 100 mg Enoxaparin Sodium (Lovenox -) 40 mg SQ DAILY [facility] Last Admin: 01/16/17 09:16 Dose: 40 mg Gabapentin (Neurontin -) 300 mg PO BID PRN PRN Reason: MODERATE PAIN Insulin Aspart (Novolog Vial Sliding Scale -) 1 vial SQ ACHS [facility] PRN Reason: Protocol Last Admin: 01/16/17 17:36 Dose: Not Given Insulin Aspart (Novolog Vial) 10 units SQ TIDAC [facility] Last Admin: 01/16/17 17:35 Dose: 10 units Insulin Detemir (Levemir Vial) 40 units SQ BID@0700,2200 [facility] Last Admin: 01/16/17 08:36 Dose: 40 units Oxycodone HCl (Roxicodone -) 10 mg PO Q4H PRN PRN Reason: PAIN Last Admin: 01/16/17 09:14 Dose: 10 mg Polyethylene Glycol (Miralax (For Daily Use) -) 17 gm PO DAILY [facility] Last Admin: 01/16/17 15:35 Dose: 17 gm Senna (Senna -) 2 tab PO HS [facility] Last Admin: 01/15/17 21:11 Dose: 2 tab - Objective Vital Signs: Vital Signs Temperature 97.8 F 01/16/17 17:51 Pulse Rate 76 01/16/17 17:51 Respiratory Rate 18 01/16/17 17:51 Blood Pressure 145/90 01/16/17 17:51 O2 Sat by Pulse Oximetry (%) 96 01/16/17 10:00 Constitutional: Yes: No Distress, Calm Cardiovascular: Yes: Regular Rate and Rhythm Respiratory: Yes: Regular, CTA Bilaterally Gastrointestinal: Yes: Normal Bowel Sounds, Soft Musculoskeletal: Yes: Other Extremities: Yes: Other Wound/Incision: Yes: Other Neurological: Yes: Alert, Oriented Psychiatric: Yes: Alert Labs: CBC, BMP 01/16/17 06:58 01/16/17 06:58 INR, PTT INR 1.38 (0.82-1.09) H 01/13/17 06:10 Assessment/Plan . Cellulitis /abscess of the right buttock Diabetes Mellitus Peripheral neuropathy plan stopped zosyn changed abx to oral augmentin to take augmentin for 7 days rest as per primary
[2017-01-16] MEDS ORDERED: INSULIN DETEMIR 100 UNITS/ML MDV SQ ONE (20:45)
[2017-01-16] MEDS ORDERED: INSULIN (NOVOLOG) ASPART 100 UNITS/ML 10ML VIAL ONE (20:45)
[2017-01-16] MEDS: SENNOSIDES 8.6MG TABLET (FP) PO SCH (21:02)
[2017-01-17] MEDS ORDERED: ACETAMINOPHEN 325 MG TABLET (FP) ONE (05:50)
[2017-01-17 06:31] VITALS: BP 126/76; PULSE 76; TEMP 99.3
[2017-01-17] MEDS ORDERED: AMOX TR/POT CLAV 875MG/125MG TABLETS (FP) PO SCH (08:00)
--- NOTE | 2017-01-17 08:52 | PN ---
Teaching Attending Note Name of Resident: Mary Grace Gates ATTENDING PHYSICIAN STATEMENT I saw and evaluated the patient. I reviewed the resident's note and discussed the case with the resident. I agree with the resident's findings and plan as documented. SUBJECTIVE: no fever or chills. has no pain in wound area OBJECTIVE: NAD CV : RRR Lungs : CTAB ext : no edema R buttock area with an incision wound with no drainage and clear base. surrounded by L endurated area, no erythema but hyperpigmented skin . ASSESSMENT AND PLAN: 56 y/o man with h/o DM , CAD who presented with R buttock cellulitis and abscess formation 1- R buttock abscess : s/p I&D . improved AUgmentin BID x 7 days instructed to follow up with Dr. Austin in 1 week local wound care and packing VNS arranged 2- DM : levemir 40 BID and standing 10 units of novolog and SSI instructed to follow with his distribution engineering technologist fro better sugar control his endo dc'd his metformin 3- DC home today
[2017-01-17] MEDS: INSULIN DETEMIR 100 UNITS/ML MDV SQ SCH (09:04)
[2017-01-17] MEDS: INSULIN SLIDING SCALE (NOVOLOG) 1 VIAL SQ SCH (09:04)
[2017-01-17] MEDS: INSULIN (NOVOLOG) ASPART 100 UNITS/ML 10ML VIAL SQ SCH (09:04)
[2017-01-17] MEDS: POLYETHYLENE GLYCOL 3350 119 GM BTL PO SCH (09:05)
[2017-01-17] MEDS: ENOXAPARIN NA (PORCINE) 40 MG/0.4 ML DISP.SYRIN SQ SCH (09:05)
--- NOTE | 2017-01-17 13:06 | DS ---
Physical Exam: SUBJECTIVE: Patient seen and examined at bed side this morning. Patient mentions the pain in the right buttock is improving. Now he can walk better. Denies chest pain, sob, cough, palpitation, abdominal pain, nausea or vomiting. Complaining of constipation. Bladder habit normal. Sleep-disturbed due to discomfort while lying down. OBJECTIVE: Vital Signs Period Temp Pulse Resp BP Sys/Ji Pulse Ox Last 24 Hr 97.8 F-99.3 F 75-81 18-20 126-145/76-90 96-96 PHYSICAL EXAM GENERAL: Awake, alert, and fully oriented, in no acute distress. HEAD: Normal with no signs of trauma. EYES: EOM intact, no pallor or icterus. EARS, NOSE, THROAT: Ears normal. Moist mucous membranes. NECK: Normal range of motion, supple without lymphadenopathy, JVD, or masses. LUNGS: Breath sounds equal, clear to auscultation bilaterally. No wheezes, and no crackles. No accessory muscle use. HEART: Regular rate and rhythm, normal S1 and S2 without murmur, rub or gallop. ABDOMEN: Soft, nontender, not distended, normoactive bowel sounds, no guarding, no rebound, no masses. No hepatomegaly or splenomegaly. MUSCULOSKELETAL: Normal range of motion at all joints. No bony deformities or tenderness. No CVA tenderness. Left buttock normal; Right buttock: Incision around 1 cm x 3cm-minimal drainage of yellow seroanguinous fluid. Erythematous irregular area decreased since admission, indurated area decreased, tender to palpation. UPPER EXTREMITIES: 2+ pulses, warm, well-perfused. No cyanosis. No clubbing. No peripheral edema. LOWER EXTREMITIES: 2+ pulses, warm, well-perfused. No calf tenderness. No peripheral edema. NEUROLOGICAL: No facial droop, Power-5/5 in all ext, sensation intact,Cranial nerves II-XII intact. Normal speech. Gait not observed. PSYCHIATRIC: Cooperative. Good eye contact. Appropriate mood and affect. SKIN: Warm, dry, normal turgor, no rashes or lesions noted, normal capillary refill. LABS Laboratory Results - last 24 hr 01/16/17 01/16/17 01/17/17 17:29 20:28 05:46 POC Glucometer 136 234 133 Microbiology Laboratory Tests 01/10/17 01/10/17 01/10/17 14:40 14:40 14:40 WBC 15.3 H D RBC 5.45 Hgb 15.3 Hct 46.1 MCV 84.6 MCHC 33.2 RDW 12.8 Plt Count 204 D MPV 9.4 D Neutrophils % 79.2 D Lymphocytes % 10.4 D Monocytes % 9.4 Eosinophils % 0.2 D Basophils % 0.8 INR 1.23 H PTT (Actin FS) VBG pH POC VBG pCO2 POC VBG pO2 Mixed VBG HCO3 Sodium 133 L Potassium 3.8 Chloride 96 L Carbon Dioxide 28 Anion Gap 9 BUN 12 Creatinine 0.8 Creat Clearance w eGFR > 60 POC Glucometer Random Glucose 294 H Hemoglobin A1c % Lactic Acid Calcium 8.6 Magnesium Total Bilirubin 1.5 H D AST 9 L D ALT 19 D Alkaline Phosphatase 96 Creatine Kinase 48 Troponin I < 0.02 Total Protein 7.0 Albumin 3.2 L Triglycerides Cholesterol Total LDL Cholesterol HDL Cholesterol 01/10/17 01/10/17 01/10/17 14:40 14:45 20:43 WBC RBC Hgb Hct MCV MCHC RDW Plt Count MPV Neutrophils % Lymphocytes % Monocytes % Eosinophils % Basophils % INR PTT (Actin FS) VBG pH 7.38 POC VBG pCO2 49.7 POC VBG pO2 24.3 L Mixed VBG HCO3 28.5 H Sodium Potassium Chloride Carbon Dioxide Anion Gap BUN Creatinine Creat Clearance w eGFR POC Glucometer Random Glucose Hemoglobin A1c % Lactic Acid 1.9 2.0 Calcium Magnesium Total Bilirubin AST ALT Alkaline Phosphatase Creatine Kinase Troponin I Total Protein Albumin Triglycerides Cholesterol Total LDL Cholesterol HDL Cholesterol 01/10/17 01/11/17 01/11/17 21:10 06:00 06:00 WBC 14.3 H RBC 4.82 Hgb 13.6 D Hct 40.7 MCV 84.6 MCHC 33.5 RDW 12.8 Plt Count 187 MPV 9.4 Neutrophils % 78.5 Lymphocytes % 10.0 Monocytes % 10.7 H Eosinophils % 0.2 Basophils % 0.6 INR PTT (Actin FS) VBG pH POC VBG pCO2 POC VBG pO2 Mixed VBG HCO3 Sodium Potassium Chloride Carbon Dioxide Anion Gap BUN Creatinine Creat Clearance w eGFR POC Glucometer [phone] Random Glucose Hemoglobin A1c % Lactic Acid Calcium Magnesium Total Bilirubin AST ALT Alkaline Phosphatase Creatine Kinase Troponin I Total Protein Albumin Triglycerides Cancelled Cholesterol Cancelled Total LDL Cholesterol Cancelled HDL Cholesterol Cancelled 01/11/17 01/11/17 01/11/17 06:00 06:34 06:34 WBC RBC Hgb Hct MCV MCHC RDW Plt Count MPV Neutrophils % Lymphocytes % Monocytes % Eosinophils % Basophils % INR 1.21 H PTT (Actin FS) 27.3 VBG pH POC VBG pCO2 POC VBG pO2 Mixed VBG HCO3 Sodium 137 Potassium 3.9 Chloride 102 Carbon Dioxide 25 Anion Gap 10 BUN 9 D Creatinine 0.5 L D Creat Clearance w eGFR > 60 POC Glucometer Random Glucose 218 H D Hemoglobin A1c % 13.5 H D Lactic Acid Calcium 8.0 L Magnesium Total Bilirubin 1.1 H D AST 15 D ALT 17 Alkaline Phosphatase 84 Creatine Kinase Troponin I Total Protein 5.9 L Albumin 2.7 L Triglycerides 91 D Cholesterol 186 Total LDL Cholesterol 128 H HDL Cholesterol 50 D 01/11/17 01/11/17 01/11/17 11:07 18:20 21:59 WBC RBC Hgb Hct MCV MCHC RDW Plt Count MPV Neutrophils % Lymphocytes % Monocytes % Eosinophils % Basophils % INR PTT (Actin FS) VBG pH POC VBG pCO2 POC VBG pO2 Mixed VBG HCO3 Sodium Potassium Chloride Carbon Dioxide Anion Gap BUN Creatinine Creat Clearance w eGFR POC Glucometer 194.23673 222.91984 249 Random Glucose Hemoglobin A1c % Lactic Acid Calcium Magnesium Total Bilirubin AST ALT Alkaline Phosphatase Creatine Kinase Troponin I Total Protein Albumin Triglycerides Cholesterol Total LDL Cholesterol HDL Cholesterol 01/12/17 01/12/17 01/12/17 05:35 05:35 06:16 WBC 14.6 H RBC 4.71 Hgb 13.4 Hct 39.9 MCV 84.8 MCHC 33.5 RDW 12.7 Plt Count 190 MPV 9.5 Neutrophils % Lymphocytes % Monocytes % Eosinophils % Basophils % INR PTT (Actin FS) VBG pH POC VBG pCO2 POC VBG pO2 Mixed VBG HCO3 Sodium 138 Potassium 3.6 Chloride 99 Carbon Dioxide 29 Anion Gap 10 BUN 8 Creatinine 0.6 L Creat Clearance w eGFR POC Glucometer 214 Random Glucose 227 H Hemoglobin A1c % Lactic Acid Calcium 8.2 L Magnesium Total Bilirubin AST ALT Alkaline Phosphatase Creatine Kinase Troponin I Total Protein Albumin Triglycerides Cholesterol Total LDL Cholesterol HDL Cholesterol 01/12/17 01/12/17 01/12/17 12:16 16:42 21:19 WBC RBC Hgb Hct MCV MCHC RDW Plt Count MPV Neutrophils % Lymphocytes % Monocytes % Eosinophils % Basophils % INR PTT (Actin FS) VBG pH POC VBG pCO2 POC VBG pO2 Mixed VBG HCO3 Sodium Potassium Chloride Carbon Dioxide Anion Gap BUN Creatinine Creat Clearance w eGFR POC Glucometer 134 109 191 Random Glucose Hemoglobin A1c % Lactic Acid Calcium Magnesium Total Bilirubin AST ALT Alkaline Phosphatase Creatine Kinase Troponin I Total Protein Albumin Triglycerides Cholesterol Total LDL Cholesterol HDL Cholesterol 01/13/17 01/13/17 01/13/17 06:10 06:10 06:10 WBC 13.4 H RBC 4.78 Hgb 13.5 Hct 40.3 MCV 84.4 MCHC 33.4 RDW 12.8 Plt Count 214 MPV 9.4 Neutrophils % 72.9 Lymphocytes % 13.1 D Monocytes % 11.5 H Eosinophils % 1.7 D Basophils % 0.8 INR 1.38 H PTT (Actin FS) 28.1 VBG pH POC VBG pCO2 POC VBG pO2 Mixed VBG HCO3 Sodium 141 Potassium 4.3 Chloride 101 Carbon Dioxide 34 H Anion Gap 6 L BUN 6 L D Creatinine 0.6 L Creat Clearance w eGFR POC Glucometer Random Glucose 110 H D Hemoglobin A1c % Lactic Acid Calcium 8.4 L Magnesium Total Bilirubin AST ALT Alkaline Phosphatase Creatine Kinase Troponin I Total Protein Albumin Triglycerides Cholesterol Total LDL Cholesterol HDL Cholesterol 01/13/17 01/13/17 01/13/17 06:11 17:36 21:23 WBC RBC Hgb Hct MCV MCHC RDW Plt Count MPV Neutrophils % Lymphocytes % Monocytes % Eosinophils % Basophils % INR PTT (Actin FS) VBG pH POC VBG pCO2 POC VBG pO2 Mixed VBG HCO3 Sodium Potassium Chloride Carbon Dioxide Anion Gap BUN Creatinine Creat Clearance w eGFR POC Glucometer 119 326 208 Random Glucose Hemoglobin A1c % Lactic Acid Calcium Magnesium Total Bilirubin AST ALT Alkaline Phosphatase Creatine Kinase Troponin I Total Protein Albumin Triglycerides Cholesterol Total LDL Cholesterol HDL Cholesterol 01/14/17 01/14/17 01/14/17 06:00 06:34 12:54 WBC 10.0 RBC 4.61 Hgb 12.9 Hct 38.8 MCV 84.2 MCHC 33.2 RDW 13.0 Plt Count 243 MPV 8.5 Neutrophils % Lymphocytes % Monocytes % Eosinophils % Basophils % INR PTT (Actin FS) VBG pH POC VBG pCO2 POC VBG pO2 Mixed VBG HCO3 Sodium Potassium Chloride Carbon Dioxide Anion Gap BUN Creatinine Creat Clearance w eGFR POC Glucometer 123 172 Random Glucose Hemoglobin A1c % Lactic Acid Calcium Magnesium Total Bilirubin AST ALT Alkaline Phosphatase Creatine Kinase Troponin I Total Protein Albumin Triglycerides Cholesterol Total LDL Cholesterol HDL Cholesterol 01/14/17 01/14/17 01/15/17 18:00 22:07 05:51 WBC RBC Hgb Hct MCV MCHC RDW Plt Count MPV Neutrophils % Lymphocytes % Monocytes % Eosinophils % Basophils % INR PTT (Actin FS) VBG pH POC VBG pCO2 POC VBG pO2 Mixed VBG HCO3 Sodium Potassium Chloride Carbon Dioxide Anion Gap BUN Creatinine Creat Clearance w eGFR POC Glucometer 128 270 152 Random Glucose Hemoglobin A1c % Lactic Acid Calcium Magnesium Total Bilirubin AST ALT Alkaline Phosphatase Creatine Kinase Troponin I Total Protein Albumin Triglycerides Cholesterol Total LDL Cholesterol HDL Cholesterol 01/15/17 01/15/17 01/15/17 06:00 11:42 16:49 WBC 7.3 RBC 4.48 Hgb 12.7 Hct 37.5 MCV 83.7 MCHC 33.9 RDW 12.7 Plt Count 270 MPV 8.4 Neutrophils % 59.8 Lymphocytes % 22.7 D Monocytes % 12.1 H Eosinophils % 4.6 H D Basophils % 0.8 INR PTT (Actin FS) VBG pH POC VBG pCO2 POC VBG pO2 Mixed VBG HCO3 Sodium Potassium Chloride Carbon Dioxide Anion Gap BUN Creatinine Creat Clearance w eGFR POC Glucometer 166 100 Random Glucose Hemoglobin A1c % Lactic Acid Calcium Magnesium Total Bilirubin AST ALT Alkaline Phosphatase Creatine Kinase Troponin I Total Protein Albumin Triglycerides Cholesterol Total LDL Cholesterol HDL Cholesterol 01/15/17 01/16/17 01/16/17 20:23 05:59 06:58 WBC 7.9 RBC 4.76 Hgb 13.4 Hct 40.1 MCV 84.4 MCHC 33.4 RDW 13.0 Plt Count 313 MPV 8.2 Neutrophils % 53.7 Lymphocytes % 28.7 D Monocytes % 13.0 H Eosinophils % 3.8 Basophils % 0.8 INR PTT (Actin FS) VBG pH POC VBG pCO2 POC VBG pO2 Mixed VBG HCO3 Sodium Potassium Chloride Carbon Dioxide Anion Gap BUN Creatinine Creat Clearance w eGFR POC Glucometer 207 152 Random Glucose Hemoglobin A1c % Lactic Acid Calcium Magnesium Total Bilirubin AST ALT Alkaline Phosphatase Creatine Kinase Troponin I Total Protein Albumin Triglycerides Cholesterol Total LDL Cholesterol HDL Cholesterol 01/16/17 01/16/17 01/16/17 06:58 11:34 17:29 WBC RBC Hgb Hct MCV MCHC RDW Plt Count MPV Neutrophils % Lymphocytes % Monocytes % Eosinophils % Basophils % INR PTT (Actin FS) VBG pH POC VBG pCO2 POC VBG pO2 Mixed VBG HCO3 Sodium 141 Potassium 3.8 Chloride 100 Carbon Dioxide 33 H Anion Gap 8 BUN 5 L Creatinine 0.6 L Creat Clearance w eGFR > 60 POC Glucometer 136 136 Random Glucose 119 H Hemoglobin A1c % Lactic Acid Calcium 9.1 Magnesium 2.6 H D Total Bilirubin 0.3 D AST 32 D ALT 56 D Alkaline Phosphatase 166 H D Creatine Kinase Troponin I Total Protein 6.5 Albumin 2.5 L Triglycerides Cholesterol Total LDL Cholesterol HDL Cholesterol 01/16/17 01/17/17 20:28 05:46 WBC RBC Hgb Hct MCV MCHC RDW Plt Count MPV Neutrophils % Lymphocytes % Monocytes % Eosinophils % Basophils % INR PTT (Actin FS) VBG pH POC VBG pCO2 POC VBG pO2 Mixed VBG HCO3 Sodium Potassium Chloride Carbon Dioxide Anion Gap BUN Creatinine Creat Clearance w eGFR POC Glucometer 234 133 Random Glucose Hemoglobin A1c % Lactic Acid Calcium Magnesium Total Bilirubin AST ALT Alkaline Phosphatase Creatine Kinase Troponin I Total Protein Albumin Triglycerides Cholesterol Total LDL Cholesterol HDL Cholesterol 01/13/17 11:30 Buttock - Right Gram Stain - Final 01/13/17 11:30 Buttock - Right Wound Culture - Final Strep Agalactiae Group B 01/10/17 14:40 Blood - Peripheral Venous Blood Culture - Final NO GROWTH AFTER 5 DAYS INCUBATION 01/10/17 14:40 Blood - Peripheral Venous Blood Culture - Final NO GROWTH AFTER 5 DAYS INCUBATION 01/11/17 15:00 Abscess Gram Stain - Final 01/11/17 15:00 Abscess Wound Culture - Preliminary Strep Agalactiae Group B Staphylococcus Coagulase Neg Diphtheroid/Corynebacterium HOSPITAL COURSE: Date of Admission:01/10/17 Date of Discharge: 01/17/17 Patient is a 56 year old male with past medical history of DM, Peripheral neuropathy, GERD, MRSA in the wound and multiple boils in he past, came in with the chief complaints of the right buttock pain. Admitted with the diagnosis of Cellulitis of the right buttock s/p Incision and Drainage POD 4. Admitted in Med-Surg. Has a h/o MRSA in the past. Blood culture negative. Wound culture- Group B Strep, Staphylococcus coagulase neg; Diphtheroid/Corynaebacterium. Continued IV Zosyn 3.375 gm Q8H and discharged home on PO Augmentin 1 tab PO Daily x 7 days. For the wound care, visiting nurse has been arranged. F/Up with the surgeon ( Dr. Austin) and PCP in a week. Diabetes Mellitus. HbA1c 13.5. Sugar was high on home dose so on discharge, recommended patient to continue taking Levemir to 40 BID and to Continue Lispro 10 U TID with the coverage. Metformin was stopped by his tele marketing executive. Discussed in depth about diet and exercise. Hospital stay was uneventful. Illness, Investigation and Plan of care explained to the patient. He verbalized understanding. Case discussed with Dr. Zapata. Minutes to complete discharge: 45 Discharge Summary Reason For Visit: SEPSIS Condition: Improved - Instructions Diet, Activity, Other Instructions: You were admitted for the evaluation and treatment of cellulitis with an abscess of the right buttock. Incision and Drainage was done and now the area looks much better. Please take Antibiotics for 7 days. For the wound care, a visiting nurse is arranged. We increased the Insulin (Lispro) from 5 U to 10 Units TID. Please watch for any hypoglycemic episodes. Your tele marketing executive stopped Metformin. Levemir is the same as Lantus ( if you have lantus , continue that ) Take sliding scale as follows: For sugar 200-250 take 2 251-300 take 4 301-400 take 6 > 400 take 8 and call MD F/up with the surgeon (Dr. Austin) and your primary doctor in a week. Return to the Emergency Department immediately if your symptoms worsen or if you develop any new symptoms. take Antibiotics ( Augmentin ) twice a day for 1 week. you need to start this evening Referrals: Daniel Austin MD [Staff Physician] - 1 Week Purnima Velazco MD [Primary Care Provider] - 1 Week Disposition: HOME - Home Medications Comprehensive Discharge Medication List: Ambulatory Orders Gabapentin [Neurontin -] 300 mg PO BID 01/12/17 Insulin Lispro [Humalog] 10 unit SQ TIDCM 01/12/17 Amox-Tr/K Cl [Augmentin - 875Mg Tablet] 1 tab PO BID #14 tablet 01/17/17 Docusate Sodium 100 mg PO BID #10 capsule 01/17/17 Insulin (Levemir) [Levemir Vial] 40 unit SQ BID #2 vial 01/17/17 Insulin Lispro [Humalog Kwikpen U-100] 10 unit SQ TID #2 insuln.pen 01/17/17 Sennosides [Senna -] 1 tab PO HS #15 tablet 01/17/17 This patient is new to me today: No Emergency Visit: Yes ED Registration Date: 01/10/17 Care time: The patient presented to the Emergency Department on the above date and was hospitalized for further evaluation of their emergent condition. Critical Care patient: No - Discharge Referral Referred to [facility] No
--- NOTE | 2017-01-17 14:43 | EKG ---
Test Reason : Blood Pressure : / mmHG Vent. Rate : 096 BPM Atrial Rate : 096 BPM P-R Int : 146 ms QRS Dur : 088 ms QT Int : 384 ms P-R-T Axes : 037 016 070 degrees QTc Int : 485 ms NORMAL SINUS RHYTHM PROLONGED QT ABNORMAL ECG WHEN COMPARED WITH ECG OF 10-JAN-2017 13:57, NO SIGNIFICANT CHANGE WAS FOUND Confirmed by GIOVANY VEGA MD ([id number]) on 01/17/2017 2:43:12 PM Referred By: Confirmed By:GIOVANY VEGA MD
--- NOTE | 2017-01-18 11:44 | OP ---
DATE OF OPERATION: 01/13/2017 PREOPERATIVE DIAGNOSES: Abscess, right buttock. POSTOPERATIVE DIAGNOSIS: Abscess, right buttock. PROCEDURE: Incision and drainage of abscess, right buttock. SURGEON: Daniel Austin MD ANESTHESIA: General. OPERATIVE FINDINGS: There was a deep right buttock abscess. The rest of the findings were unremarkable. PROCEDURE: The patient was placed on the operating room table in supine position, and after the induction of general anesthesia, he was turned into the left lateral decubitus position with the right buttock facing up. The area was prepped with ChloraPrep and draped in sterile fashion. A timeout was taken and then an incision was made with the scalpel and taken down through subcutaneous tissue into the abscess cavity. The pus was sent for culture and sensitivity. All loculations were broken up using blunt dissection. Copious irrigation was carried out with normal saline and peroxide and hemostasis secured with electrocautery and then the wound packed with saline and peroxide-soaked Kerlix gauze. Dry, sterile dressings were placed and the procedure terminated at this point. The patient aroused from general anesthesia, and transferred to the postanesthesia care unit in stable condition, awake and alert. ESTIMATED BLOOD LOSS: Minimal. DRAINS: None. SPECIMEN: Culture and sensitivity to Microbiology. I, Daniel Austin, was physically present in the operating room from the time the patient was placed on the operating room table until he was transferred to the postanesthesia care unit in my accompaniment. MD MAYITO Wright/[id number]
== END 2017-01-17 10:09 | disposition home or self-care (01) | DRG 854 ==
LOC: JER 11:51 → JERBED 17:08 → J4S 01-11 21:20
PROVIDERS: ADMIT Internal Medicine; ATTEND Internal Medicine
PROC: 0J990ZZ Drainage of Buttock Subcutaneous Tissue and Fascia, Open Approach (ICD-10-PCS; principal; 2017-01-13 11:00)
DX: A41.9 Sepsis, unspecified organism (principal); L02.31 Cutaneous abscess of buttock; L03.317 Cellulitis of buttock; B95.1 Streptococcus, group B, as the cause of diseases classified elsewhere; K21.9 Gastro-esophageal reflux disease without esophagitis; E11.65 Type 2 diabetes mellitus with hyperglycemia; E11.42 Type 2 diabetes mellitus with diabetic polyneuropathy; Z79.4 Long term (current) use of insulin; I10 Essential (primary) hypertension; J45.909 Unspecified asthma, uncomplicated; F41.9 Anxiety disorder, unspecified; R00.0 Tachycardia, unspecified; Z86.14 Personal history of Methicillin resistant Staphylococcus aureus infection
CPT/HCPCS: 36415; 72193-TC; 80048; 80053; 80061; 82550; 82803; 83036; 83605; 83721; 83735; 84484; 85025; 85027; 85610; 85730; 87040; 87070; 87186; 87205; 88304-TC; 93005; 93010; 94760; 97161-GP; 99285-25

== ENCOUNTER 2018-07-03 11:56 | Observation (INO) | payer OTHER ==
--- NOTE | 2018-07-03 13:23 | PDOC ---
History of Present Illness - General Chief Complaint: Chest Pain Stated Complaint: CHEST PAIN, SWELLING LEGS, COUGH Time Seen by Provider: 07/03/18 12:48 History Source: Patient Exam Limitations: No Limitations - History of Present Illness Initial Comments: 58 year old male with past medical history of DM, HTN, HLD, BPH, Peripheral neuropathy, GERD, MRSA presents to the ER with stabbing like chest pain since Monday associated with new onset bilateral leg swelling. He states the chest pain comes on both at rest and with exertion and neither specifically worsen it. The pain is not associated with nausea, vomiting, or diaphoresis. For the past 3 days he has also been experiencing mild lightheadedness. Patient states bc of his chest pain and weakness he has not been able to eat normally for the past 3 days, has not eaten much and only been able to take down soup. He endorses chronic lower back pain, leg pain from his neuropathy, constipation and straining on urination from his "bladder problems" He denies any recent fevers, chills, or infections. Denies any SOB or difficulty breathing. PCP: Purnima Moran Psh: Appendectomy Social Hx: Denies smoking, drinking, or illicit drug usage Allergies: NKA, NKDA Past History - Past Medical History Allergies/Adverse Reactions: Allergies Allergy/AdvReac Type Severity Reaction Status Date / Time No Known Allergies Allergy Verified 07/03/18 12:19 Home Medications: Ambulatory Orders Gabapentin [Neurontin -] 300 mg PO BID 01/12/17 Insulin Lispro [Humalog] 10 unit SQ TIDCM 01/12/17 Amox-Tr/K Cl [Augmentin - 875Mg Tablet] 1 tab PO BID #14 tablet 01/17/17 Docusate Sodium 100 mg PO BID #10 capsule 01/17/17 Insulin (Levemir) [Levemir Vial] 40 unit SQ BID #2 vial 01/17/17 Insulin Lispro [Humalog Kwikpen U-100] 10 unit SQ TID #2 insuln.pen 01/17/17 Sennosides [Senna -] 1 tab PO HS #15 tablet 01/17/17 Asthma: Yes Cardiac Disorders: Yes COPD: No Diabetes: Yes (insulin) HTN: Yes Psychiatric Problems: Yes (anxiety) - Surgical History Abdominal Surgery: Yes Appendectomy: Yes Cholecystectomy: Yes - Immunization History Immunization Up to Date: Yes - Suicide/Smoking/Psychosocial Hx Smoking History: Never smoked Have you smoked in the past 12 months: No Information on smoking cessation initiated: No Hx Alcohol Use: No Drug/Substance Use Hx: No Substance Use Type: None Hx Substance Use Treatment: No Review of Systems - Review of Systems Able to Perform ROS?: Yes Comments:: CONSTITUTIONAL: PresentL Generalized weakness, loss of appetite. Absent: fever, chills, diaphoresis, malaise. HEENT: Absent: rhinorrhea, nasal congestion, throat pain, throat swelling, difficulty swallowing, mouth swelling, ear pain, eye pain, visual Changes CARDIOVASCULAR: Present: Chest pain, lightheadedness, peripheral edema. Absent: syncope, palpitations, irregular heart rate RESPIRATORY: Absent: cough, shortness of breath, dyspnea with exertion, orthopnea, wheezing, stridor, hemoptysis GASTROINTESTINAL: Present: Constipation Absent: abdominal pain, abdominal distension, nausea, vomiting, diarrhea, melena , hematochezia GENITOURINARY: Present: urgency, hesitancy Absent: dysuria, frequency, hematuria, flank pain, genital pain MUSCULOSKELETAL: Absent: myalgia, arthralgia, joint swelling SKIN: Absent: rash, itching, pallor HEMATOLOGIC/IMMUNOLOGIC: Absent: easy bleeding, easy bruising, lymphadenopathy, frequent infections ENDOCRINE: Absent: unexplained weight gain, unexplained weight loss, heat intolerance, cold intolerance NEUROLOGIC: Present: Headache Absent: focal weakness or paresthesias, dizziness, unsteady gait, seizure, mental status changes, bladder or bowel incontinence PSYCHIATRIC: Absent: anxiety, depression, suicidal or homicidal ideation, hallucinations. *Physical Exam - Vital Signs Last Vital Signs Temp Pulse Resp BP Pulse Ox 97.5 F L 94 H 18 125/106 H 97 07/03/18 12:15 07/03/18 12:15 07/03/18 12:15 07/03/18 12:15 07/03/18 12:15 - Physical Exam Comments: GENERAL: Well developed, well nourished. Awake and alert. No acute distress. HEENT: Normocephalic, atraumatic. PERRLA, EOMI. No conjunctival pallor. Sclera are non- icteric. Moist mucous membranes. Oropharynx is clear. NECK: Supple. Full ROM. No JVD. No lymphadenopathy. CARDIOVASCULAR: Regular rate and rhythm. No murmurs, rubs, or gallops. Distal pulses are 1+ and symmetric. PULMONARY: Minimal evidence of respiratory distress. Possible crackles at the left base. No wheezing, rales or rhonchi. ABDOMINAL: Soft. Non-tender. Non-distended. No rebound or guarding. No organomegaly. Normoactive bowel sounds. MUSCULOSKELETAL Normal range of motion at all joints. No bony deformities or tenderness. No CVA tenderness. EXTREMITIES: 1+ edema in both ankles. No cyanosis. No clubbing. No calf tenderness. SKIN: Warm and dry. Normal capillary refill. No rashes. No jaundice. NEUROLOGICAL: Alert, awake, appropriate. Cranial nerves 2-12 intact. No deficits to light touch in face, upper extremities and lower extremities. No motor deficits in the in face, upper extremities and lower extremities. Normal speech. Gait is normal without ataxia. PSYCHIATRIC: Cooperative. Good eye contact. Appropriate mood and affect. Moderate Sedation - Procedure Monitoring Vital Signs: Procedure Monitoring Vital Signs Temperature 97.5 F L 07/03/18 12:15 Pulse Rate 94 H 07/03/18 12:15 Respiratory Rate 18 07/03/18 12:15 Blood Pressure 125/106 H 07/03/18 12:15 O2 Sat by Pulse Oximetry (%) 97 07/03/18 12:15 ED Treatment Course - LABORATORY CBC & Chemistry Diagram: 07/03/18 13:45 07/03/18 13:45 - ADDITIONAL ORDERS Additional order review: Laboratory Results 07/03/18 07/03/18 14:20 13:45 Sodium 140 Potassium 3.9 Chloride 104 Carbon Dioxide 31 Anion Gap 6 L BUN 11 Creatinine 0.8 Creat Clearance w eGFR > 60 Random Glucose 174 H Calcium 8.6 Total Bilirubin 1.0 AST 17 ALT 21 Alkaline Phosphatase 77 Troponin I < 0.02 B-Natriuretic Peptide 193.8 H Total Protein 6.7 Albumin 3.3 L Urine Color Straw Urine Appearance Clear Urine pH 5.0 Ur Specific North 1.007 L Urine Protein Negative Urine Glucose (UA) 3+ H Urine Ketones Negative Urine Blood Negative Urine Nitrite Negative Urine Bilirubin Negative Urine Urobilinogen Negative Ur Leukocyte Esterase Negative 07/03/18 13:45 RBC 5.02 MCV 83.9 MCHC 35.0 RDW 13.2 MPV 9.9 D Neutrophils % 60.9 Lymphocytes % 26.4 Monocytes % 9.6 Eosinophils % 2.4 Basophils % 0.7 - RADIOLOGY Radiology Studies Ordered: Category Date Time Status CHEST PA & LAT [RAD] Stat Radiology 07/03/18 13:32 Completed Medical Decision Making - Medical Decision Making 58 year old male with past medical history of DM, HTN, HLD, BPH, Peripheral neuropathy, GERD, MRSA presents to the ER with stabbing like chest pain since Monday associated with new onset bilateral leg swelling. DD includes but not limited to: ACS, CHF, arrhythmia, PNA, pneumothorax, infection. Plan: Cbc, Cmp, Trop, BNP, Ekg, CXR, re-assess. Cbc, Cmp, trop WNL. BNP mildly elvated to 193 CXR shows possible effusion vs infiltrate vs atelectasis in Right lower lobe. Plan is to admit patient to Tele obs for further monitoring. *DC/Admit/Observation/Transfer Diagnosis at time of Disposition: Chest pain - Discharge Dispostion Condition at time of disposition: Guarded Decision to Admit order: Yes Decision to Admit order Date/Time: Decision to Admit Order Category Date Time Status Decision to Admit to Hospital Routine Admission 07/03/18 15:10 Active - Referrals Referrals: Purnima Velazco MD [Primary Care Provider] - - Patient Instructions - Post Discharge Activity
[2018-07-03 14:09] LABS: BASO % 0.7 % (0-2.0); EOS % 2.4 % (0-4.5); HEMATOCRIT 42.1 % (35.4-49); HEMOGLOBIN 14.7 GM/dL (11.7-16.9); LYMPH % 26.4 % (8-40); MCH 29.4 pg (25.7-33.7); MEAN CELL VOLUME 83.9 fl (80-96); MEAN PLT VOLUME 9.9 fl (7.5-11.1); MONO % 9.6 % (3.8-10.2); NEUT % 60.9 % (42.8-82.8); PLATELET COUNT 205 K/MM3 (134-434); RBC 5.02 M/mm3 (4.00-5.60); RDW 13.2 % (11.9-15.9); WHITE BLOOD COUNT 7.4 K/mm3 (4.0-10.0)
[2018-07-03 14:27] LABS: URINE APPEARANCE CLEAR; URINE BILIRUBIN NEGATIVE (<2.0 mg/dL); URINE COLOR STRAW; URINE GLUCOSE (UA) 3+ (NEGATIVE); URINE KETONE NEGATIVE (NEGATIVE); URINE LEUK ESTERASE NEGATIVE (NEGATIVE); URINE NITRITE NEGATIVE (NEGATIVE); URINE PROTEIN NEGATIVE (NEGATIVE); URINE UROBILINOGEN NEGATIVE mg/dL (0.2-1.0)
[2018-07-03 14:38] LABS: ALBUMIN 3.3 g/dl (3.4-5.0); ALK PHOS 77 U/L (45-117); ANION GAP 6 MMOL/L (8-16); BLOOD UREA NITROGEN 11 mg/dL (7-18); CALCIUM 8.6 mg/dL (8.5-10.1); CHLORIDE 104 mmol/L (98-107); CO2 31 mmol/L (21-32); CREATININE 0.8 mg/dL (0.55-1.3); GLUCOSE,RANDOM 174 mg/dL (74-106); N-TERMINAL BNP 193.8 pg/ml (5-125); POTASSIUM 3.9 mmol/L (3.5-5.1); SGOT/AST 17 U/L (15-37); SGPT/ALT 21 U/L (13-61); SODIUM 140 mmol/L (136-145); TOT PROT 6.7 g/dl (6.4-8.2)
[2018-07-03] MEDS ORDERED: ASPIRIN 81 MG CHEWABLE TABLETS PO ONE (15:06)
[2018-07-03] MEDS ORDERED: FUROSEMIDE 40 MG/4 ML INJECTABLE VIAL IVPUSH ONE (15:08)
[2018-07-03] MEDS ORDERED: morphine CARPU-JECT 4 MG/1 ML DISP.SYRIN IVPUSH ONE (15:09)
[2018-07-03] MEDS ORDERED: ACETAMINOPHEN 325 MG TABLET (FP) PO ONE (15:14)
--- NOTE | 2018-07-03 15:45 | PDOC ---
Attending Attestation - Resident Resident Name: Santiago Coombs - ED Attending Attestation I have performed the following: I have examined & evaluated the patient, The case was reviewed & discussed with the resident, I agree w/resident's findings & plan - HPI HPI: 07/03/18 15:38 58-year-old male with history of hypertension presents with several days of intermittent chest pain, sometimes pressure-like, and worsening lower leg swelling. No exertional shortness of breath or orthopnea, no fevers or chills or cough. Never placed on diuretics, presents for evaluation. - Physicial Exam PE: 07/03/18 15:45 Vital signs within normal limits except for blood pressure, which is notably elevated No acute respiratory distress, O2 sat is normal No JVD Heart is regular, lungs with decreased breath sounds at right base, slight right basilar crackles Abdomen benign 1-2+ pitting edema bilaterally - Medical Decision Making 07/03/18 15:45 58-year-old male with history of hypertension presents with intermittent chest pain and worsening peripheral edema over the last week. Question new diastolic heart failure, rule out ACS or valvular pathology. Labs within normal limits Chest x-ray with infiltrate at the right base, consistent with exam Consider starting diuretics Admit for cardiac workup Heart Score/ECG Review #1 ECG reviewed & interpreted by me at: 12:06 General ECG Interpretation: Sinus Rhythm, Normal Rate (90), Normal Intervals ( qtc 477), No acute ischemic changes
[2018-07-03] MEDS ORDERED: ACETAMINOPHEN 325 MG TABLET (FP) PO PRN (16:04)
[2018-07-03] MEDS ORDERED: ONDANSETRON 4 MG/2 ML VIAL IVPUSH PRN (16:04)
--- NOTE | 2018-07-03 16:09 | HP ---
Admitting History and Physical - Primary Care Physician PCP: Purnima Velazco - Admission Chief Complaint: I'm having heart pain History of Present Illness: Mr Alfaro is a very pleasant 58 year old male who comes in with chest pain. He says it began on Monday. He says the pain is located on the left side of his chest where his heart is. He says the pain does not radiate. At first it was a cramping pain. This was present Monday through Monday. He says he experienced this pain 3-4 times per day and it lasted about 45 seconds. However on Monday the pain became sharp and constant. He does not know what brought the cramping pain on. He says nothing relieves or exacerbated the sharp pain. At its worst, it was a 10/10. He had lightheadedness, shortness of breath, nausea, and bilateral leg swelling associated with this. He denies fevers, chills, passing out, coughing, vomiting, abdominal pain, diarrhea, difficulty or pain on urination. He says he has chronic constipation. History Source: Patient Limitations to Obtaining History: No Limitations - Past Medical History Cardiovascular: Yes: HTN Pulmonary: Yes: Asthma Endocrine: Yes: Diabetes Mellitus - Past Surgical History Past Surgical History: Yes: Appendectomy - Smoking History Smoking history: Never smoked Have you smoked in the past 12 months: No - Alcohol/Substance Use Hx Alcohol Use: No History of Substance Use: reports: None - Social History Usual Living Arrangement: Yes: Alone ADL: Independent History of Recent Travel: No Home Medications - Allergies Allergies/Adverse Reactions: Allergies Allergy/AdvReac Type Severity Reaction Status Date / Time No Known Allergies Allergy Verified 07/03/18 12:19 - Home Medications Home Medications: Ambulatory Orders Gabapentin [Neurontin -] 300 mg PO BID 01/12/17 Insulin Lispro [Humalog] 10 unit SQ TIDCM 01/12/17 Amox-Tr/K Cl [Augmentin - 875Mg Tablet] 1 tab PO BID #14 tablet 01/17/17 Docusate Sodium 100 mg PO BID #10 capsule 01/17/17 Insulin (Levemir) [Levemir Vial] 40 unit SQ BID #2 vial 01/17/17 Insulin Lispro [Humalog Kwikpen U-100] 10 unit SQ TID #2 insuln.pen 01/17/17 Sennosides [Senna -] 1 tab PO HS #15 tablet 01/17/17 Family Disease History - Family Disease History Family Disease History: Other: Sister (angina) Review of Systems Findings/Remarks: Full review of systems obtained, as per HPI and otherwise negative Physical Examination Vital Signs: Vital Signs Temperature 36.4 C L 07/03/18 12:15 Pulse Rate 94 H 07/03/18 12:15 Respiratory Rate 18 07/03/18 12:15 Blood Pressure 125/106 H 07/03/18 12:15 O2 Sat by Pulse Oximetry (%) 97 07/03/18 12:15 Constitutional: Yes: No Distress, Calm, Obese Eyes: Yes: Conjunctiva Clear, EOM Intact, PERRL HENT: Yes: Atraumatic, Normocephalic Cardiovascular: Yes: Regular Rate and Rhythm. No: Gallop, Murmur, Rub Respiratory: Yes: Regular, CTA Bilaterally. No: Rales, Rhonchi, Wheezes Gastrointestinal: Yes: Normal Bowel Sounds, Soft. No: Distention, Tenderness Extremities: Yes: WNL Edema: Yes Edema: LLE: 1+, RLE: 1+ Labs: CBC, BMP 07/03/18 13:45 07/03/18 13:45 Imaging - Results Chest X-ray: Report Reviewed, Image Reviewed EKG: Image Reviewed Problem List - Problems (1) Chest pain Assessment/Plan: -patient complains of chest pain -sounds atypical in nature -will check cardiac enzymes x3, first troponin negative -if 3 sets normal, stress test in am -admit to telemetry observation -consult cardiology -obtain ECHO -patient with atypical chest pain, sob, BLE edema, and elevated HR so will consider PE -check d-dimer and venous duplex dopplers -if d-dimer is low and dopplers negative, no further testing needed -if elevated will obtain CT scan PE protocol as well Code(s): R07.9 - CHEST PAIN, UNSPECIFIED Qualifiers: Chest pain type: other chest pain Qualified Code(s): R07.89 - Other chest pain; R07.8 - Other chest pain (2) Diabetes Assessment/Plan: -diabetic diet -continue home regimen -continue gabapentin for neuropathy Code(s): E11.9 - TYPE 2 DIABETES MELLITUS WITHOUT COMPLICATIONS Qualifiers: Diabetes mellitus type: 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
[2018-07-03] MEDS ORDERED: ASPIRIN 81 MG CHEWABLE TABLETS ONE (16:23)
[2018-07-03] MEDS ORDERED: FUROSEMIDE 40 MG/4 ML INJECTABLE VIAL ONE (16:23)
[2018-07-03] MEDS ORDERED: MORPHINE SULFATE 2 MG/ML VIAL IVPUSH PRN (16:33)
[2018-07-03] MEDS: GABAPENTIN 300 MG CAPSULE (FP) PO SCH (22:00)
[2018-07-03] MEDS: DOCUSATE SODIUM 100 MG CAPSULE (FP) PO SCH (22:00)
[2018-07-03] MEDS: SENNOSIDES 8.6MG TABLET (FP) PO SCH (22:00)
[2018-07-03 22:17] VITALS: BMI 32.3
[2018-07-03] MEDS: INSULIN (LEVEMIR) 100 UNITS/ML UNITS SQ SCH (22:31)
[2018-07-04 06:38] LABS: BASO % 0.4 % (0-2.0); EOS % 3.4 % (0-4.5); HEMATOCRIT 42.7 % (35.4-49); HEMOGLOBIN 13.8 GM/dL (11.7-16.9); LYMPH % 32.4 % (8-40); MCH 27.7 pg (25.7-33.7); MCHC 32.4 g/dl (32.0-35.9); MEAN CELL VOLUME 85.6 fl (80-96); MEAN PLT VOLUME 10.3 fl (7.5-11.1); MONO % 9.2 % (3.8-10.2); NEUT % 54.6 % (42.8-82.8); PLATELET COUNT 190 K/MM3 (134-434); RBC 4.99 M/mm3 (4.00-5.60); RDW 12.9 % (11.9-15.9); WHITE BLOOD COUNT 7.6 K/mm3 (4.0-10.0)
[2018-07-04] MEDS: INSULIN (LEVEMIR) 100 UNITS/ML UNITS SQ SCH ×2 (06:39→22:03)
[2018-07-04 07:20] LABS: ANION GAP 4 MMOL/L (8-16); BLOOD UREA NITROGEN 15 mg/dL (7-18); CALCIUM 8.7 mg/dL (8.5-10.1); CHLORIDE 105 mmol/L (98-107); CO2 32 mmol/L (21-32); CREATININE 0.9 mg/dL (0.55-1.3); GLUCOSE,RANDOM 258 mg/dL (74-106); PHOSPHOROUS 4.5 mg/dL (2.5-4.9); POTASSIUM 4.3 mmol/L (3.5-5.1); SODIUM 142 mmol/L (136-145)
--- NOTE | 2018-07-04 07:34 | PN ---
Progress Note, Physician Chief Complaint: Patient denies any chest pain or SOB - Current Medication List Current Medications: Active Medications Acetaminophen (Tylenol -) 650 mg PO Q4H PRN PRN Reason: PAIN LEVEL 1 - 3 Aspirin (Asa -) 81 mg PO DAILY [facility] Docusate Sodium (Colace -) 100 mg PO BID [facility] Last Admin: 07/03/18 22:00 Dose: 100 mg Gabapentin (Neurontin -) 300 mg PO BID [facility] Last Admin: 07/03/18 22:00 Dose: Not Given Insulin Aspart (Novolog Vial) 10 units SQ TIDCM [facility] Insulin Detemir (Levemir Vial) 40 units SQ BID@0700,2200 [facility] Last Admin: 07/04/18 06:39 Dose: Not Given Morphine Sulfate (Morphine Sulfate) 0.5 mg IVPUSH Q6H PRN PRN Reason: PAIN LEVEL 6-10 Ondansetron HCl (Zofran Injection) 4 mg IVPUSH Q6H PRN PRN Reason: NAUSEA Senna (Senna -) 1 tab PO HS [facility] Last Admin: 07/03/18 22:00 Dose: 1 tab - Objective Vital Signs: Vital Signs Temperature 97.8 F 07/04/18 06:00 Pulse Rate 86 07/04/18 06:00 Respiratory Rate 18 07/04/18 06:00 Blood Pressure 146/90 07/04/18 06:00 O2 Sat by Pulse Oximetry (%) 98 07/04/18 02:58 Constitutional: Yes: Well Nourished, No Distress HENT: Yes: WNL, Atraumatic, Other (MM moist no anemia) Neck: Yes: Supple, Trachea Midline. No: Decreased ROM, Lymphadenopathy Cardiovascular: Yes: Regular Rate and Rhythm, S1, S2. No: Bruit, JVD, Gallop, Murmur Respiratory: Yes: Regular, CTA Bilaterally Gastrointestinal: Yes: Normal Bowel Sounds, Soft Extremities: No: Calf Tenderness Edema: No Peripheral Pulses: Left Doralis Pedis: 1+, Right Dorsalis Pedis: 1+ Labs: CBC, BMP 07/04/18 05:30 07/04/18 05:30 Problem List - Problems (1) Chest pain Assessment/Plan: Atypical no EKG chnages, normal serial CE X3 awaiting NST will Dc if w/u is -ve , meantime cont current management. Code(s): R07.9 - CHEST PAIN, UNSPECIFIED Qualifiers: Chest pain type: other chest pain Qualified Code(s): R07.89 - Other chest pain; R07.8 - Other chest pain (2) Diabetes Assessment/Plan: Poorly controlled need optimization of diabetic meds on DC Code(s): E11.9 - TYPE 2 DIABETES MELLITUS WITHOUT COMPLICATIONS Qualifiers: Diabetes mellitus type: type 2 Diabetes mellitus nursing home insulin use: with nursing home use Diabetes mellitus complication status: with neurologic complications Diabetes mellitus complication detail: with polyneuropathy Qualified Code(s): E11.42 - Type 2 diabetes mellitus with diabetic polyneuropathy; 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
[2018-07-04] MEDS: INSULIN (NOVOLOG) ASPART 100 UNITS/ML 10ML VIAL SQ SCH ×4 (08:29→16:43)
[2018-07-04 09:26] LABS: CHOLESTEROL 170 mg/dL (50-200); HDL CHOLESTEROL 39 mg/dL (40-60); TRIGLYCERIDES 160 mg/dL (0-150)
--- NOTE | 2018-07-04 09:35 | CON.CARD ---
Consult Consult Specialty:: Cardiology Referred by:: Millicent Reason for Consultation:: chest pain - History of Present Illness Chief Complaint: chest pain History of Present Illness: 58M h/o HTN, DM p/w chest pain. L side of chest, nonradiating, feels like cramping. Feels it 3-4 times per day, lasts less than a minute. Pain feels sharp, constant. Also had dyspnea, lightheadedness, nausea, ilan leg swelling. Trop neg x 3 - Past Medical History Cardio/Vascular: Yes: HTN Pulmonary: Yes: Asthma Endocrine: Yes: Diabetes Mellitus - Past Surgical History Past Surgical History: Yes: Appendectomy - Alcohol/Substance Use Hx Alcohol Use: No History of Substance Use: reports: None - Smoking History Smoking history: Never smoked Have you smoked in the past 12 months: No - Social History ADL: Independent History of Recent Travel: No Home Medications - Allergies Allergies/Adverse Reactions: Allergies Allergy/AdvReac Type Severity Reaction Status Date / Time No Known Allergies Allergy Verified 07/03/18 12:19 - Home Medications Home Medications: Ambulatory Orders Gabapentin [Neurontin -] 300 mg PO BID 01/12/17 Insulin Lispro [Humalog] 10 unit SQ TIDCM 01/12/17 Amox-Tr/K Cl [Augmentin - 875Mg Tablet] 1 tab PO BID #14 tablet 01/17/17 Docusate Sodium 100 mg PO BID #10 capsule 01/17/17 Insulin (Levemir) [Levemir Vial] 40 unit SQ BID #2 vial 01/17/17 Insulin Lispro [Humalog Kwikpen U-100] 10 unit SQ TID #2 insuln.pen 01/17/17 Sennosides [Senna -] 1 tab PO HS #15 tablet 01/17/17 Family Disease History - Family Disease History Family Disease History: Other: Sister (angina) Vital Signs: Vital Signs Temperature 98.0 F 07/04/18 08:22 Pulse Rate 91 H 07/04/18 08:22 Respiratory Rate 17 07/04/18 08:25 Blood Pressure 158/89 07/04/18 08:22 O2 Sat by Pulse Oximetry (%) 98 07/04/18 08:25 - Other Data Labs, Other Data: CBC, BMP 07/04/18 05:30 07/04/18 05:30 Troponin, BNP 07/03/18 07/03/18 07/04/18 13:45 21:30 05:30 Troponin I < 0.02 < 0.02 < 0.02 B-Natriuretic Peptide 193.8 H Troponin, BNP 07/03/18 07/03/18 07/04/18 13:45 21:30 05:30 Troponin I < 0.02 < 0.02 < 0.02 B-Natriuretic Peptide 193.8 H Assessment/Plan lower ext dopplers: no dvt bilaterally CXR R lung base atelectesis EKG: sinus, no ischemic changes
[2018-07-04] MEDS ORDERED: ASPIRIN 81 MG CHEWABLE TABLETS PO SCH (10:00)
[2018-07-04] MEDS ORDERED: REGADENOSON 0.4 MG/5 ML PRE-FILLED SYRINGE IVPUSH ONE ×2 (10:23→10:45)
--- NOTE | 2018-07-04 13:04 | EKG ---
Test Reason : Blood Pressure : / mmHG Vent. Rate : 090 BPM Atrial Rate : 090 BPM P-R Int : 132 ms QRS Dur : 092 ms QT Int : 390 ms P-R-T Axes : 020 008 059 degrees QTc Int : 477 ms NORMAL SINUS RHYTHM NORMAL ECG WHEN COMPARED WITH ECG OF 10-JAN-2017 16:51, NO SIGNIFICANT CHANGE WAS FOUND Confirmed by ROMEO MARTINI MD ([id number]) on 07/04/2018 1:03:28 PM Referred By: Confirmed By:ROMEO MARTINI MD
--- NOTE | 2018-07-04 14:13 | ECHO ---
Name: ZARINA RIOS Exam:Adult Echocardiogram Study Date: 07/04/2018 10:09 AM Age: 58 yrs Reason For Study: edema Height: 70 in Weight: 225 lb BSA: 2.2 m2 MMode/2D Measurements & Calculations IVSd: 0.84 cm Ao root diam: 3.5 cm LVIDd: 5.4 cm LA dimension: 3.9 cm LVIDs: 4.2 cm LVPWd: 0.90 cm EDV(Teich): 142.6 ml LVOT diam: 2.1 cm ESV(Teich): 78.8 ml Doppler Measurements & Calculations MV E max georgi: 48.9 cm/sec Med Peak E' Georgi: 4.1 cm/sec MV A max georgi: 74.0 cm/sec Med E/e': 12.0 MV E/A: 0.66 Lat Peak E' Georgi: 6.0 cm/sec MV dec time: 0.26 sec Lat E/e': 8.1 Procedure A two-dimensional transthoracic echocardiogram with color flow and Doppler was performed. Left Ventricle The left ventricle is grossly normal size. Left ventricular systolic function is moderately reduced. E/A reversal consistent with but not diagnostic of poor LV compliance. There is moderate global hypokines is of the left ventricle. Septal motion is consistent with conduction abnormality. Right Ventricle The right ventricle is normal in size and function. Atria The left atrium is borderline dilated. The right atrium is borderline dilated. Mitral Valve There is mild mitral valve thickening. There is no mitral valve stenosis. There is trace to mild mitr al regurgitation. Tricuspid Valve There is mild tricuspid valve thickening. There is no tricuspid stenosis. There was insufficient TR d etected to calculate RV systolic pressure. Aortic Valve The aortic valve is not well visualized. No hemodynamically significant valvular aortic stenosis. No aortic regurgitation is present. Pulmonic Valve The pulmonic valve is not well visualized. Great Vessels The aortic root is normal size. Pericardium/Pleura There is no pericardial effusion. Interpretation Summary The left ventricle is grossly normal size. The left atrium is borderline dilated. The right atrium is borderline dilated. Left ventricular systolic function is moderately reduced. There is moderate global hypokinesis of the left ventricle. Septal motion is consistent with conduction abnormality. There is trace to mild mitral regurgitation. There was insufficient TR detected to calculate RV systolic pressure. E/A reversal consistent with but not diagnostic of poor LV compliance MD George Power 07/04/2018 02:12 PM
[2018-07-04] MEDS: DOCUSATE SODIUM 100 MG CAPSULE (FP) PO SCH ×2 (14:53→22:00)
[2018-07-04] MEDS: GABAPENTIN 300 MG CAPSULE (FP) PO SCH ×2 (14:53→22:00)
--- NOTE | 2018-07-04 15:06 | CON.CARD ---
Cardiology Consult (text) - Consultation Consultation Note: cc: cp hpi: 58 m hx dm, htn, syst chf, here with cp. Past 5-6 days has intermittent stabbing cp. Started on right side chest and then moved to center. Has not had cp since last night. No sob palps dizzy loc pnd orthopnea. Mild le edema past week as well. No anginal sxs. Sees outside cardio at pmd office, does not know name. pmh: per hpi psh: appendectomy social: no tob fam: no premature cad, scd ros: per hpi; no fever, nvd, wt loss gib hematuria dysuria muscle pain meds: Ambulatory Orders Gabapentin [Neurontin -] 300 mg PO BID 01/12/17 Insulin Lispro [Humalog] 10 unit SQ TIDCM 01/12/17 Amox-Tr/K Cl [Augmentin - 875Mg Tablet] 1 tab PO BID #14 tablet 01/17/17 Docusate Sodium 100 mg PO BID #10 capsule 01/17/17 Insulin (Levemir) [Levemir Vial] 40 unit SQ BID #2 vial 01/17/17 Insulin Lispro [Humalog Kwikpen U-100] 10 unit SQ TID #2 insuln.pen 01/17/17 Sennosides [Senna -] 1 tab PO HS #15 tablet 01/17/17 pe: Vital Signs Period Temp Pulse Resp BP Sys/Ji Pulse Ox Last 24 Hr 97.8 F-98.2 F 86-96 17-18 133-180/72-95 95-98 nad no jvd rrr s1s2 no mrg cta bl nl eff aaox3 trace pedal edema bl abd nt nd pos bs no jaundice diaphoresis pos dp pt no carotid bruits Laboratory Last Values WBC 7.6 K/mm3 (4.0-10.0) 07/04/18 05:30 RBC 4.99 M/mm3 (4.00-5.60) 07/04/18 05:30 Hgb 13.8 GM/dL (11.7-16.9) 07/04/18 05:30 Hct 42.7 % (35.4-49) 07/04/18 05:30 MCV 85.6 fl (80-96) 07/04/18 05:30 MCH 27.7 pg (25.7-33.7) 07/04/18 05:30 MCHC 32.4 g/dl (32.0-35.9) 07/04/18 05:30 RDW 12.9 % (11.9-15.9) 07/04/18 05:30 Plt Count 190 K/MM3 (134-434) 07/04/18 05:30 MPV 10.3 fl (7.5-11.1) 07/04/18 05:30 Absolute Neuts (auto) 4.1 K/mm3 (1.5-8.0) 07/04/18 05:30 Neutrophils % 54.6 % (42.8-82.8) 07/04/18 05:30 Lymphocytes % 32.4 % (8-40) D 07/04/18 05:30 Monocytes % 9.2 % (3.8-10.2) 07/04/18 05:30 Eosinophils % 3.4 % (0-4.5) 07/04/18 05:30 Basophils % 0.4 % (0-2.0) 07/04/18 05:30 Nucleated RBC % 0 % (0-0) 07/04/18 05:30 D-Dimer 411 ng/ml (0-500) 07/03/18 16:40 Sodium 142 mmol/L (136-145) 07/04/18 05:30 Potassium 4.3 mmol/L (3.5-5.1) 07/04/18 05:30 Chloride 105 mmol/L (98-107) 07/04/18 05:30 Carbon Dioxide 32 mmol/L (21-32) 07/04/18 05:30 Anion Gap 4 MMOL/L (8-16) L 07/04/18 05:30 BUN 15 mg/dL (7-18) 07/04/18 05:30 Creatinine 0.9 mg/dL (0.55-1.3) 07/04/18 05:30 Creat Clearance w eGFR > 60 (>60) 07/04/18 05:30 POC Glucometer 225 UNITS (80-120) 07/04/18 05:54 Random Glucose 258 mg/dL (74-106) H 07/04/18 05:30 Hemoglobin A1c % 13.2 % (4.2-6.3) H 07/04/18 08:30 Calcium 8.7 mg/dL (8.5-10.1) 07/04/18 05:30 Phosphorus 4.5 mg/dL (2.5-4.9) 07/04/18 05:30 Magnesium 2.0 mg/dL (1.8-2.4) 07/04/18 05:30 Total Bilirubin 1.0 mg/dL (0.2-1) 07/03/18 13:45 AST 17 U/L (15-37) 07/03/18 13:45 ALT 21 U/L (13-61) 07/03/18 13:45 Alkaline Phosphatase 77 U/L (45-117) 07/03/18 13:45 Creatine Kinase 169 IU/L (26-308) 07/04/18 05:30 Creatine Kinase Index 1.4 % (0.0-5.0) 07/04/18 05:30 CK-MB (CK-2) 2.5 ng/mL (0.5-3.6) 07/04/18 05:30 Troponin I < 0.02 ng/ml (0.00-0.05) 07/04/18 05:30 B-Natriuretic Peptide 193.8 pg/ml (5-125) H 07/03/18 13:45 Total Protein 6.7 g/dl (6.4-8.2) 07/03/18 13:45 Albumin 3.3 g/dl (3.4-5.0) L 07/03/18 13:45 Triglycerides 160 mg/dL (0-150) H 07/04/18 05:30 Cholesterol 170 mg/dL (50-200) 07/04/18 05:30 Total LDL Cholesterol 105 mg/dL (5-100) H 07/04/18 05:30 HDL Cholesterol 39 mg/dL (40-60) L 07/04/18 05:30 Urine Color Straw 07/03/18 14:20 Urine Appearance Clear 07/03/18 14:20 Urine pH 5.0 (5.0-8.0) 07/03/18 14:20 Ur Specific Nelson 1.007 (1.010-1.035) L 07/03/18 14:20 Urine Protein Negative (NEGATIVE) 07/03/18 14:20 Urine Glucose (UA) 3+ (NEGATIVE) H 07/03/18 14:20 Urine Ketones Negative (NEGATIVE) 07/03/18 14:20 Urine Blood Negative (NEGATIVE) 07/03/18 14:20 Urine Nitrite Negative (NEGATIVE) 07/03/18 14:20 Urine Bilirubin Negative (<2.0 mg/dL) 07/03/18 14:20 Urine Urobilinogen Negative mg/dL (0.2-1.0) 07/03/18 14:20 Ur Leukocyte Esterase Negative (NEGATIVE) 07/03/18 14:20 cxr: no chf ecg: sr, nl intervals, no ischemic changes echo 08/2013: mild dec lvef, global hk echo 09/2013: mild dec lvef, inferolat hk, nl rv, no sig valve path echo 06/2018: mod dec lvef, global hk, nl rv, no sig valve path mibi 08/2013: mod inf scar with small periinfarct ischemia, lvef 35% mibi 06/2018: my read: mod inferolateral scar from apex to base with with minimal periinfarct ischemia, lvef 46%, global hk tele: sr a/p: 58 m hx dm, htn, syst chf, here with cp. cp: -atypical cp, resolved -trops negx3, ecg unremarkable. no signs acs -nuclear stress test w/o significant ischemia -d-dimer negative -possible related to recent URI htn: -elevated here, pt says his htn meds were stopped last mos by pmd -will start lisinopril and toprol for chf/htn chronic syst chf: -in 2013 found to have reduced lvef. Sent for cath then and per pt he did not need stent. Seems he has NICM. -says he sees outside independent crop consultant but he is not on any chf meds -will start toprol and lisinopril here. He has mild pedal edema so will start lasix 20 po qd as well.
[2018-07-04] MEDS ORDERED: LISINOPRIL 5 MG TABLET (FP) PO SCH (16:15)
[2018-07-04] MEDS ORDERED: metoPROLOL SUCCINATE 25 MG TAB.SR.24H (FP) PO SCH (16:15)
[2018-07-04] MEDS ORDERED: FUROSEMIDE 20 MG TABLET (FP) PO SCH (16:15)
[2018-07-04] MEDS ORDERED: ATORVASTATIN CA 20 MG TABLET (FP) PO SCH (22:00)
[2018-07-04] MEDS: SENNOSIDES 8.6MG TABLET (FP) PO SCH (22:00)
[2018-07-05 06:14] VITALS: BP 129/84; PULSE 86; TEMP 98.2
[2018-07-05] MEDS: INSULIN (LEVEMIR) 100 UNITS/ML UNITS SQ SCH (06:39)
[2018-07-05] MEDS ORDERED: metFORMIN HCL 500 MG TABLET (FP) PO SCH (07:45)
--- NOTE | 2018-07-05 07:51 | DS ---
Physical Examination Vital Signs: Vital Signs Temperature 98.2 F 07/05/18 06:00 Pulse Rate 86 07/05/18 06:00 Respiratory Rate 20 07/05/18 06:00 Blood Pressure 129/84 07/05/18 06:00 O2 Sat by Pulse Oximetry (%) 97 07/05/18 05:00 Constitutional: Well Nourished, No Distress HENT: Yes: WNL, Atraumatic, Other (MM moist no anemia) Neck: Yes: Supple, Trachea Midline. No: Decreased ROM, Lymphadenopathy Cardiovascular: Yes: Regular Rate and Rhythm, S1, S2. No: Bruit, JVD, Gallop, Murmur Respiratory: Yes: Regular, CTA Bilaterally Gastrointestinal: Yes: Normal Bowel Sounds, Soft Extremities: No: Calf Tenderness Edema: No Peripheral Pulses: Left Doralis Pedis: 1+, Right Dorsalis Pedis: Labs: CBC, BMP 07/04/18 05:30 07/04/18 05:30 Discharge Summary Reason For Visit: CHEST PAIN Current Active Problems Chest pain (Acute) Diabetic neuropathy (Acute) Hypercholesterolemia (Acute) Hypercholesterolemia (Acute) Non-ischemic cardiomyopathy (Acute) Systolic CHF (Acute) Other Procedures: ECHO and Nuclear Stress test Hospital Course: 58 yrs old man H/O HTN, Uncontrolled T2DM< , present with atypical chest pain and decrese exercise tolerance, patient was admitted for evaluation of CAD as he has multiple risk factors, serial CE remained normal, serial EKG no acute St T chnages, ECHO shows global Hypokinesis with reduced EF, Hyperglycemia was present on admission Insulin dose optimized and Metformin added, NST shows no Ischemic changes, evaluated by Cardiology consult B Blockers, Statin and Lisinoprial added for optimization of sHF management patient will F/U with Cardiology and PCP for further management. Time Spent > 37 minutes Condition: Stable - Instructions Diet, Activity, Other Instructions: Low Salt Low Cholesterol Diabetic Diet Referrals: Lazaro Cordero MD [Staff Physician] - 1 Month Purnima Velazco MD [Primary Care Provider] - 2 Weeks Disposition: HOME - Home Medications Comprehensive Discharge Medication List: Ambulatory Orders Gabapentin [Neurontin -] 300 mg PO BID 01/12/17 Insulin Lispro [Humalog] 10 unit SQ TIDCM 01/12/17 Docusate Sodium 100 mg PO BID #10 capsule 01/17/17 Insulin (Levemir) [Levemir Vial] 40 unit SQ BID #2 vial 01/17/17 Sennosides [Senna -] 1 tab PO HS #15 tablet 01/17/17 Atorvastatin Ca [Lipitor] 20 mg PO HS #30 tablet 07/05/18 Furosemide [Lasix -] 20 mg PO DAILY #30 tablet 07/05/18 Lisinopril [Prinivil] 5 mg PO DAILY #30 tablet 07/05/18 Metoprolol Succinate [Toprol XL -] 25 mg PO DAILY #30 tab.sr.24h 07/05/18 metFORMIN HCL [Glucophage -] 500 mg PO BID@0700,1630 #60 tablet 07/05/18
--- NOTE | 2018-07-05 08:27 | DS ---
Physical Examination Vital Signs: Vital Signs Temperature 98.2 F 07/05/18 06:00 Pulse Rate 86 07/05/18 06:00 Respiratory Rate 20 07/05/18 06:00 Blood Pressure 129/84 07/05/18 06:00 O2 Sat by Pulse Oximetry (%) 97 07/05/18 05:00 Labs: CBC, BMP 07/04/18 05:30 07/04/18 05:30 Discharge Summary Reason For Visit: CHEST PAIN Current Active Problems Chest pain (Acute) Diabetic neuropathy (Acute) Hypercholesterolemia (Acute) Hypercholesterolemia (Acute) Non-ischemic cardiomyopathy (Acute) Systolic CHF (Acute) Condition: Stable - Instructions Diet, Activity, Other Instructions: Low Salt Low Cholesterol Diabetic Diet Referrals: Lazaro Cordero MD [Staff Physician] - 1 Month Purnima Velazco MD [Primary Care Provider] - 2 Weeks Disposition: HOME - Home Medications Comprehensive Discharge Medication List: Ambulatory Orders Gabapentin [Neurontin -] 300 mg PO BID 01/12/17 Insulin Lispro [Humalog] 10 unit SQ TIDCM 01/12/17 Docusate Sodium 100 mg PO BID #10 capsule 01/17/17 Sennosides [Senna -] 1 tab PO HS #15 tablet 01/17/17 Aspirin [ASA -] 81 mg PO DAILY tab.chew 07/05/18 Atorvastatin Ca [Lipitor] 20 mg PO HS #30 tablet 07/05/18 Docusate Sodium [Colace -] 100 mg PO BID #0 capsule 07/05/18 Furosemide [Lasix -] 20 mg PO DAILY #30 tablet 07/05/18 Insulin Glargine,Hum.rec.anlog [Lantus] 50 unit SQ BID #1 vial 07/05/18 Lisinopril [Prinivil] 5 mg PO DAILY #30 tablet 07/05/18 Metoprolol Succinate [Toprol XL -] 25 mg PO DAILY #30 tab.sr.24h 07/05/18
== END 2018-07-05 10:46 | disposition home or self-care (01) ==
LOC: JER 11:56 → JERBED 15:10 → J4W 18:55
PROVIDERS: ADMIT Internal Medicine; ATTEND Internal Medicine
PROC: 3E013VG Introduction of Insulin into Subcutaneous Tissue, Percutaneous Approach (ICD-10-PCS; principal; 2018-07-03)
PROC: 3E013VG Introduction of Insulin into Subcutaneous Tissue, Percutaneous Approach (ICD-10-PCS; 2018-07-03)
DX: R07.9 Chest pain, unspecified (principal); I42.8 Other cardiomyopathies; I11.0 Hypertensive heart disease with heart failure; I50.20 Unspecified systolic (congestive) heart failure; I43 Cardiomyopathy in diseases classified elsewhere; E11.42 Type 2 diabetes mellitus with diabetic polyneuropathy; Z79.4 Long term (current) use of insulin; E78.00 Pure hypercholesterolemia, unspecified; N40.0 Benign prostatic hyperplasia without lower urinary tract symptoms; Z87.09 Personal history of other diseases of the respiratory system; Z86.14 Personal history of Methicillin resistant Staphylococcus aureus infection
CPT/HCPCS: 36415; 71046-TC-FY; 78452-TC; 80048; 80053; 80061; 81003; 82550; 82553; 82962; 83036; 83721; 83735; 83880; 84100; 84484; 85025; 85379; 87081; 87086; 93005; 93010; 93017; 93306-TC; 93970-TC; 96372; 99282-25; A9502; G0378; J2785

== ENCOUNTER 2018-07-12 14:03 | Observation (INO) | payer OTHER ==
--- NOTE | 2018-07-12 14:39 | PDOC ---
History of Present Illness - General History Source: Patient Exam Limitations: No Limitations <Rosalind Phillip - Last Filed: 07/12/18 17:15> <Debra Winslow - Last Filed: 07/15/18 13:11> - General Chief Complaint: Chest Pain Stated Complaint: CHEST PAIN, SWOLLEN LEG Time Seen by Provider: 07/12/18 14:35 - History of Present Illness Initial Comments: CHIEF COMPLAINT: 58 y/o afebrile male with PMH poorly controlled DM (A1Cs consistently > 10), HTN, HLD, BPH, peripheral neuropathy, GERD, MRSA c/o pressure like chest pain since yesterday. HISTORY OF PRESENT ILLNESS: The patient was seen and admitted here on 07/03 for similar. He states when he was discharged on 07/05 the pain had resolved. It started up again, more pressure-like, yesterday while he was urinating. The patient was started on new medication (lasix) after his discharge. He does admit that he did not start taking the Metoprolol and Januvia he was prescribed because they are too expensive. He thought he had a low grade temp last night. He also admits to mild cough and swelling to both legs despite the Lasix. He denies chills, MASON, changes in vision/hearing, SOB, n/v/d, abd pain, back pain. 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 During his prior hospital visit he had an ECHO and stress test that were both negative. PCP: Purnima Moran Psh: Appendectomy Social Hx: Denies smoking, drinking, or illicit drug usage Allergies: NKA, NKDA Vital signs on arrival are notable for pulse of 97 with a BP of 170/98. REVIEW OF SYSTEMS: GENERAL/CONSTITUTIONAL: Subjective fever last night. No chills. No weakness. No weight change. HEAD, EYES, EARS, NOSE AND THROAT: No change in vision. No ear pain or discharge. No sore throat. CARDIOVASCULAR: +pressure like chest pain. No shortness of breath. RESPIRATORY: +dry cough. No wheezing or hemoptysis. GASTROINTESTINAL: No nausea, vomiting, diarrhea. GENITOURINARY: No dysuria, frequency, or change in urination. MUSCULOSKELETAL: +swelling to b/l ankles. No neck or back pain. SKIN: No rash or easy bruising. NEUROLOGIC: No headache, vertigo, loss of consciousness, or loss of sensation. PHYSICAL EXAM: GENERAL: The patient is awake, alert, and fully oriented, in no acute distress. He is well appearing, pleasant and ambulatory. HEAD: Normal with no signs of trauma. ENT: Pupils equal, round and reactive to light, extraocular movements intact, sclera anicteric, conjunctiva clear. Neck supple. LUNGS: Clear to auscultation bilaterally. Normal excursion. No respiratory distress or use of accessory muscles. CV: RRR, S1/S2, no MRG. Cap refill < 2 sec. ABDOMEN: Soft, non-distended, non-tender even to deep palpation, no hepatomegaly or splenomegaly, no masses. EXTREMITIES: Normal range of motion. 1+ pitting edema to b/l LEs. No erythema or warmth to LEs b/l. NEUROLOGICAL: Normal speech, normal gait. CN II-XII grossly intact. SKIN: Warm, dry, normal turgor, no rashes or lesions noted. (Rosalind Phillip) Past History - Past Medical History Anemia: No Asthma: Yes Cancer: Yes (LYMPHOMA) Cardiac Disorders: No CVA: No COPD: No CHF: No Dementia: No Diabetes: Yes (insulin) GI Disorders: No Disorders: No HTN: Yes Hypercholesterolemia: No Liver Disease: No Psychiatric Problems: Yes (anxiety) Seizures: No Thyroid Disease: No - Surgical History Abdominal Surgery: Yes Appendectomy: Yes Cardiac Surgery: No Cholecystectomy: No Lung Surgery: No Neurologic Surgery: No Orthopedic Surgery: No - Immunization History Immunization Up to Date: Yes - Suicide/Smoking/Psychosocial Hx Smoking History: Never smoked Have you smoked in the past 12 months: No Hx Alcohol Use: No Drug/Substance Use Hx: No Substance Use Type: None Hx Substance Use Treatment: No <Rosalind Phillip - Last Filed: 07/12/18 17:15> <Debra Winslow - Last Filed: 07/15/18 13:11> - Past Medical History Allergies/Adverse Reactions: Allergies Allergy/AdvReac Type Severity Reaction Status Date / Time No Known Allergies Allergy Verified 07/12/18 14:06 Home Medications: Ambulatory Orders Gabapentin [Neurontin -] 300 mg PO BID 01/12/17 Insulin Lispro [Humalog] 10 unit SQ TIDCM 01/12/17 Sennosides [Senna -] 1 tab PO HS #15 tablet 01/17/17 Aspirin [ASA -] 81 mg PO DAILY tab.chew 07/05/18 Docusate Sodium [Colace -] 100 mg PO BID #0 capsule 07/05/18 Furosemide [Lasix -] 20 mg PO DAILY #30 tablet 07/05/18 Insulin Glargine,Hum.rec.anlog [Lantus] 50 unit SQ BID #1 vial 07/05/18 Lisinopril [Prinivil] 5 mg PO DAILY #30 tablet 07/05/18 Metoprolol Succinate [Toprol XL -] 25 mg PO DAILY #30 tab.sr.24h 07/05/18 Sitagliptin Phosphate [Januvia] 50 mg PO DAILY 30 Days #30 tablet 07/05/18 Atorvastatin Ca [Lipitor] 40 mg PO HS #30 tablet 07/13/18 Tamsulosin HCl [Flomax] 0.4 mg PO DAILY #30 cap.er.24h 07/13/18 Cardiac Specific PMH - Complaint Specific PMHX Pacemaker: No <Rosalind Phillip - Last Filed: 07/12/18 17:15> - Vital Signs Last Vital Signs Temp Pulse Resp BP Pulse Ox 98 F 92 H 18 136/72 96 07/13/18 14:10 07/13/18 14:10 07/13/18 14:10 07/13/18 14:10 07/13/18 09:00 Heart Score/ECG Review <Rosalind Phillip - Last Filed: 07/12/18 17:15> <Debra Winslow - Last Filed: 07/15/18 13:11> - ECG Intrepretation Comment:: Twelve-lead EKG was performed and reviewed by Dr. Nieto. There is normal sinus rhythm with a normal rate. The axis is normal. The intervals are normal. There are no ST or T wave abnormalities. Impression: Normal twelve-lead EKG (Rosalind Phillip) - Procedure Monitoring Vital Signs: Procedure Monitoring Vital Signs Temperature 98 F 07/13/18 14:10 Pulse Rate 92 H 07/13/18 14:10 Respiratory Rate 18 07/13/18 14:10 Blood Pressure 136/72 07/13/18 14:10 O2 Sat by Pulse Oximetry (%) 96 07/13/18 09:00 ED Treatment Course - LABORATORY CBC & Chemistry Diagram: 07/12/18 15:34 07/12/18 15:34 <Rosalind Phillip - Last Filed: 07/12/18 17:15> - LABORATORY CBC & Chemistry Diagram: 07/13/18 05:30 07/13/18 05:30 <Debra Winslow - Last Filed: 07/15/18 13:11> - ADDITIONAL ORDERS Additional order review: 07/12/18 15:34 RBC 4.71 MCV 84.7 MCHC 34.4 RDW 13.1 MPV 10.4 Neutrophils % 61.9 Lymphocytes % 25.3 D Monocytes % 10.3 H Eosinophils % 2.2 Basophils % 0.3 - Medications Given in the ED: ED Medications Discontinued Medications Generic Name Dose Route Start Last Admin Trade Name Freq PRN Reason Stop Dose Admin Aspirin 81 mg 07/13/18 10:00 07/13/18 09:46 Asa - PO 81 mg DAILY [facility]RON Administration Atorvastatin Calcium 40 mg 07/12/18 22:00 07/12/18 21:35 Lipitor - PO 40 mg HS [facility] Administration Docusate Sodium 100 mg 07/12/18 22:00 07/13/18 09:46 Colace - PO 100 mg BID [facility]RON Administration Enoxaparin Sodium 40 mg 07/13/18 10:00 07/13/18 09:46 Lovenox - SQ 40 mg DAILY [facility] Administration Furosemide 20 mg 07/13/18 10:00 07/13/18 09:46 Lasix - PO 20 mg DAILY [facility] Administration Furosemide 40 mg 07/13/18 10:45 07/13/18 12:30 Lasix Injection - IVPUSH 07/13/18 10:46 40 mg ONCE ONE Administration Insulin Aspart 1 vial 07/12/18 22:00 07/13/18 17:25 Novolog Vial Sliding Scale - SQ 2 units ACHS CAMRON Administration Protocol Insulin Detemir 50 units 07/12/18 22:00 07/13/18 06:31 Levemir Vial SQ 50 units BID@0700,2200 [facility] Administration Lisinopril 5 mg 07/13/18 10:00 07/13/18 09:46 Prinivil PO 5 mg DAILY [facility] Administration Metoprolol Succinate 25 mg 07/12/18 15:06 07/12/18 16:23 Toprol Xl - PO 07/12/18 15:07 25 mg ONCE ONE Administration Metoprolol Succinate 25 mg 07/13/18 10:00 07/13/18 09:46 Toprol Xl - PO 25 mg DAILY [facility] Administration Senna 1 tab 07/12/18 22:00 07/12/18 21:34 Senna - PO 1 tab HS [facility]RON Administration Tamsulosin HCl 0.4 mg 07/13/18 10:12 07/13/18 12:30 Flomax - PO 0.4 mg DAILY@0830 [facility] Administration - Medical Decision Making A/P: 58 y/o male, non compliant with DM/HTN/HLD meds here with pressure like chest pain that started yesterday. Plan is to do cardiac work up. EKG normal BNP and D-Dimer more elevated that 07/03 Will send for CTA Will admit to tele ob (Rosalind Phillip) *DC/Admit/Observation/Transfer - Discharge Dispostion Decision to Admit order: Yes <Rosalind Phillip - Last Filed: 07/12/18 17:15> <Debra Winslow - Last Filed: 07/15/18 13:11> Diagnosis at time of Disposition: Chest pain Qualifiers: Chest pain type: unspecified Qualified Code(s): R07.9 - Chest pain, unspecified - Discharge Dispostion Disposition: HOME Condition at time of disposition: Improved - Attestations Physician Attestion: I reviewed the case with the mid-level practitioner and agree with the mid- level practitioner's assessment, diagnosis and disposition. (Debra Winslow)
[2018-07-12] MEDS ORDERED: metoPROLOL SUCCINATE 25 MG TAB.SR.24H (FP) PO ONE (15:06)
[2018-07-12 16:31] LABS: BASO % 0.3 % (0-2.0); EOS % 2.2 % (0-4.5); HEMATOCRIT 39.9 % (35.4-49); HEMOGLOBIN 13.7 GM/dL (11.7-16.9); LYMPH % 25.3 % (8-40); MCH 29.1 pg (25.7-33.7); MCHC 34.4 g/dl (32.0-35.9); MEAN CELL VOLUME 84.7 fl (80-96); MEAN PLT VOLUME 10.4 fl (7.5-11.1); MONO % 10.3 % (3.8-10.2); NEUT % 61.9 % (42.8-82.8); PLATELET COUNT 219 K/MM3 (134-434); RBC 4.71 M/mm3 (4.00-5.60); RDW 13.1 % (11.9-15.9)
[2018-07-12 16:35] LABS: URINE APPEARANCE CLEAR; URINE BILIRUBIN NEGATIVE (<2.0 mg/dL); URINE COLOR COLORLESS; URINE GLUCOSE (UA) 1+ (NEGATIVE); URINE KETONE NEGATIVE (NEGATIVE); URINE LEUK ESTERASE NEGATIVE (NEGATIVE); URINE NITRITE NEGATIVE (NEGATIVE); URINE PROTEIN NEGATIVE (NEGATIVE); URINE UROBILINOGEN NEGATIVE mg/dL (0.2-1.0)
[2018-07-12 16:55] LABS: ALBUMIN 3.5 g/dl (3.4-5.0); ALK PHOS 81 U/L (45-117); ANION GAP 5 MMOL/L (8-16); BILIRUBIN,TOTAL 0.8 mg/dL (0.2-1); BLOOD UREA NITROGEN 12 mg/dL (7-18); CALCIUM 9.3 mg/dL (8.5-10.1); CHLORIDE 103 mmol/L (98-107); CO2 35 mmol/L (21-32); GLUCOSE,RANDOM 136 mg/dL (74-106); N-TERMINAL BNP 734.4 pg/ml (5-125); POTASSIUM 3.5 mmol/L (3.5-5.1); SGOT/AST 18 U/L (15-37); SGPT/ALT 25 U/L (13-61); SODIUM 142 mmol/L (136-145)
--- NOTE | 2018-07-12 18:51 | PN ---
Teaching Attending Note Name of Resident: Brijesh Quispe ATTENDING PHYSICIAN STATEMENT I saw and evaluated the patient. I reviewed the resident's note and discussed the case with the resident. I agree with the resident's findings and plan as documented. SUBJECTIVE: Seen and examined; please see resident note for further information. Briefly, this is a 58 y/o HM presenting with chest pain. Was recently admitted earlier this month to the medicine service and discharged after having stress test, echo , and being seen by cardiology. Presents back today with chest pain slightly different in nature than his presenting symptoms at his last visit. Initial troponin negative, initial CKMB 3.9 10 sys ROS done and negative aside from HPI PMH and PSH reviewed FH asked and noncontributory SH reviewed Medication list reviewed with resident; to be reconciled OBJECTIVE: VS, labs, imaging reviewed NAD, AAO RRR s1/2 no mgr Lungs CTAB no mgr NT ND +BS +1 LE edema sym b/l, no pseudoclaudication CN2-12 wnl, no FND EKG shows NSR without any concerning ST-T changes Labs are unremarkable in terms of CBC, chemistry. Negative initial troponin with 3.9 initial CKMB. CXR reviewed personally echo 2018: moderately recuced LVEF w/ global hk Lexiscan 2018: mod inferolateral scar from apex to base with with minimal periinfarct ischemia, lvef 46%, global hk ASSESSMENT AND PLAN: This is a 58 y/o male with known CAD and a recent stress test presenting with chest pain; he was last seen here by Dr. Meehan 1) Chest Pain in Adult -Given prior hx is high risk with known CAD. Recent stress test reviewed. Recent echo reviewed -Monitor on telemetry; trend troponin. Given recent cardiac workup results, etc. will consult cardiology and defer further workup to their service. 2) CAD -Known CAD; recent stress test reviewed. Last cath 2013 done without stenting; would be helpful to obtain report -Continue ASA, BB, Statin. Work up chest pain. Followup CV consult to see if any additional intervention is needed 3) Elevated BNP with history of CHF (NICM likely) -Asx; NYHA I sx at baseline with no interval worsening. Recent echocardiogram reviewed; no need to repeat. Known disease since 2013. -Can give a 1x dose of IV Lasix 20mg and then resume home medication; optimize elytes and monitor BMP and fluid status -Monitor QD weights and Is and Os; establish dry weight -On KEN; further medication changes per specialist 4) Uncontrolled HTN -Improved with home medication; continue home medication and monitor. Nursing Information Systems Coordinator regarding compliance prior to DC 5) Uncontrolled DM -Continue home basal and SSI 6) Obesity -Nursing Information Systems Coordinator when clinically appropriate 7) Noncompliance -Nursing Information Systems Coordinator prior to DC 8) HLD -Calculating ASCVD score and adjusting statin medication per guidelines 9) Elevated D-Dimer -Followup CTA ordered by ER; only slightly above the upper limit of normal. FENA -PO fluids -K4Mg2 -Cardiac, diabetic -As tolerated Full Code
--- NOTE | 2018-07-12 18:55 | HP ---
CHIEF COMPLAINT: chest pressure PCP: HISTORY OF PRESENT ILLNESS: Patient is a 58 y/o male with a history of DM, HTN, HLD, BPH, peripheral neuropathy, and GERD who is here for chest pressure. Patient reports it began at 230 am last night. It has been constant, but it lessened after he took a bath. Patient was recently admitted 07/03 for similar complaints and was discharged with a change of medications. Patient reports with his chest pain he was feeling short of breath and nauseous. Patient reports he has not been taking any of his medications because of insurance problems. He has been taking his insulin , furosemide and aspirin. Patient is a Jehovas Witness. Patient denies vomiting, orthopnea, difficulty walking, or headache. ER course was notable for: (1) (2) (3) Recent Travel: denies PAST MEDICAL HISTORY: DM, HTN, HLD, BPH, peripheral neuropathy, and GERD PAST SURGICAL HISTORY: Social History: Smoking: never Alcohol: never Drugs: never Family History: Allergies No Known Allergies Allergy (Verified 07/12/18 14:06) HOME MEDICATIONS: Home Medications Medication Instructions Recorded Gabapentin [Neurontin -] 300 mg PO BID 01/12/17 Insulin Lispro [Humalog] 10 unit SQ TIDCM 01/12/17 Sennosides [Senna -] 1 tab PO HS #15 tablet 01/17/17 Aspirin [ASA -] 81 mg PO DAILY tab.chew 07/05/18 Atorvastatin Ca [Lipitor] 20 mg PO HS #30 tablet 07/05/18 Docusate Sodium [Colace -] 100 mg PO BID #0 capsule 07/05/18 Furosemide [Lasix -] 20 mg PO DAILY #30 tablet 07/05/18 Insulin Glargine,Hum.rec.anlog 50 unit SQ BID #1 vial 07/05/18 [Lantus] Lisinopril [Prinivil] 5 mg PO DAILY #30 tablet 07/05/18 Metoprolol Succinate [Toprol XL -] 25 mg PO DAILY #30 tab.sr.24h 07/05/18 Sitagliptin Phosphate [Januvia] 50 mg PO DAILY 30 Days #30 tablet 07/05/18 REVIEW OF SYSTEMS CONSTITUTIONAL: Absent: fever, chills, diaphoresis, generalized weakness, malaise, loss of appetite, weight change HEENT: Absent: rhinorrhea, nasal congestion, throat pain, throat swelling, difficulty swallowing, mouth swelling, ear pain, eye pain, visual changes CARDIOVASCULAR: chest pressure, peripheral edema Absent: chest pain, syncope, palpitations, irregular heart rate, lightheadedness , RESPIRATORY: Absent: cough, shortness of breath, dyspnea with exertion, orthopnea, wheezing, stridor, hemoptysis GASTROINTESTINAL: Absent: abdominal pain, abdominal distension, nausea, vomiting, diarrhea, constipation, melena, hematochezia GENITOURINARY: Absent: dysuria, frequency, urgency, hesitancy, hematuria, flank pain, genital pain MUSCULOSKELETAL: Absent: myalgia, arthralgia, joint swelling, back pain, neck pain SKIN: Absent: rash, itching, pallor HEMATOLOGIC/IMMUNOLOGIC: Absent: easy bleeding, easy bruising, lymphadenopathy, frequent infections ENDOCRINE: Absent: unexplained weight gain, unexplained weight loss, heat intolerance, cold intolerance NEUROLOGIC: Absent: headache, focal weakness or paresthesias, dizziness, unsteady gait, seizure, mental status changes, bladder or bowel incontinence PSYCHIATRIC: Absent: anxiety, depression, suicidal or homicidal ideation, hallucinations. PHYSICAL EXAMINATION Vital Signs Temperature 98.2 F 07/12/18 14:07 Pulse Rate 97 H 07/12/18 14:07 Respiratory Rate 18 07/12/18 14:07 Blood Pressure 170/98 07/12/18 14:07 O2 Sat by Pulse Oximetry (%) 97 07/12/18 14:07 GENERAL: Awake, alert, and fully oriented, in no acute distress. HEAD: Normal with no signs of trauma. EYES: Pupils equal, round and reactive to light, no av nicking noted on exam EARS, NOSE, THROAT: Moist mucous membranes. NECK: no JVD noted LUNGS: Breath sounds equal, clear to auscultation bilaterally. No wheezes, and no crackles. No accessory muscle use. HEART: Regular rate and rhythm, normal S1 and S2 without murmur, rub or gallop. ABDOMEN: Soft, nontender, not distended, normoactive bowel sounds, no guarding, no rebound, no masses. No hepatomegaly or splenomegaly. MUSCULOSKELETAL: Normal range of motion at all joints. No bony deformities or tenderness. LOWER EXTREMITIES: 2+ pulses, warm, well-perfused. No calf tenderness. 2+ pitting edema, b/l sensation loss in feet NEUROLOGICAL: Cranial nerves II-XII intact. Normal speech. Normal gait. PSYCHIATRIC: Cooperative. Good eye contact. Appropriate mood and affect. SKIN: Warm, dry, normal turgor, no rashes or lesions noted, normal capillary refill. CBC, BMP 07/12/18 15:34 07/12/18 15:34 ASSESSMENT/PLAN: Patient is a 58 y/o male with a history of DM, HTN, HLD, BPH, peripheral neuropathy, and GERD who is here for chest pressure. #chest pressure r/o ACS - monitor on tele obs - trop negative x 1, f/u second @ 9 - ekg: no ST changes, repeat @ 9 - f/u Dr. Cordero - 07/04 echo: global hypokinesis, LV systolic fxn moderatly reduced - 07/04 stress test: EF: 46%, global hypokinesis, posterior lateral perfusion filling deficit #HTN - continue home meds #systolic chf - BNP: 700 - continue lasix - CXR: no congestive changes - atorvastatin 40 mg #DM - continue home glargine - SS - last A1C: 13 #DVT ppx - lovenox 40 sq FEN - sodium/diabetic diet Dispo: f/u in morning for any changes Visit type - Emergency Visit Emergency Visit: No - New Patient This patient is new to me today: No - Critical Care Critical Care patient: No
[2018-07-12 21:12] VITALS: BMI 35.6
[2018-07-12] MEDS: DOCUSATE SODIUM 100 MG CAPSULE (FP) PO SCH (21:34)
[2018-07-12] MEDS: INSULIN (LEVEMIR) 100 UNITS/ML UNITS SQ SCH (21:36)
[2018-07-12] MEDS: INSULIN SLIDING SCALE (NOVOLOG) 1 VIAL SQ SCH (21:39)
[2018-07-12] MEDS ORDERED: ATORVASTATIN CA 80 MG TABLET (FP) PO SCH (22:00)
[2018-07-12] MEDS ORDERED: SENNOSIDES 8.6MG TABLET (FP) PO SCH (22:00)
[2018-07-12] MEDS ORDERED: INSULIN SLIDING SCALE (NOVOLOG) 1 VIAL SQ SCH (22:00)
[2018-07-13 06:29] LABS: BASO % 0.6 % (0-2.0); EOS % 2.5 % (0-4.5); HEMATOCRIT 41.6 % (35.4-49); HEMOGLOBIN 13.4 GM/dL (11.7-16.9); LYMPH % 25.5 % (8-40); MCH 27.5 pg (25.7-33.7); MCHC 32.1 g/dl (32.0-35.9); MEAN CELL VOLUME 85.7 fl (80-96); MONO % 10.2 % (3.8-10.2); NEUT % 61.2 % (42.8-82.8); PLATELET COUNT 202 K/MM3 (134-434); RBC 4.85 M/mm3 (4.00-5.60); WHITE BLOOD COUNT 8.4 K/mm3 (4.0-10.0)
[2018-07-13] MEDS: INSULIN SLIDING SCALE (NOVOLOG) 1 VIAL SQ SCH ×3 (06:29→17:25)
[2018-07-13] MEDS: INSULIN (LEVEMIR) 100 UNITS/ML UNITS SQ SCH (06:31)
[2018-07-13 07:28] LABS: ALBUMIN 3.6 g/dl (3.4-5.0); ALK PHOS 79 U/L (45-117); ANION GAP 4 MMOL/L (8-16); BILIRUBIN,TOTAL 0.7 mg/dL (0.2-1); BLOOD UREA NITROGEN 20 mg/dL (7-18); CALCIUM 9.1 mg/dL (8.5-10.1); CHLORIDE 102 mmol/L (98-107); CO2 36 mmol/L (21-32); CREATININE 1.2 mg/dL (0.55-1.3); GLUCOSE,RANDOM 153 mg/dL (74-106); POTASSIUM 3.6 mmol/L (3.5-5.1); SGOT/AST 16 U/L (15-37); SGPT/ALT 27 U/L (13-61); SODIUM 143 mmol/L (136-145)
[2018-07-13 08:49] VITALS: PULSE 92
[2018-07-13] MEDS: DOCUSATE SODIUM 100 MG CAPSULE (FP) PO SCH (09:46)
[2018-07-13] MEDS ORDERED: ENOXAPARIN NA (PORCINE) 40 MG/0.4 ML DISP.SYRIN SQ SCH (10:00)
[2018-07-13] MEDS ORDERED: metoPROLOL SUCCINATE 25 MG TAB.SR.24H (FP) PO SCH (10:00)
[2018-07-13] MEDS ORDERED: LISINOPRIL 5 MG TABLET (FP) PO SCH (10:00)
[2018-07-13] MEDS ORDERED: FUROSEMIDE 20 MG TABLET (FP) PO SCH (10:00)
[2018-07-13] MEDS ORDERED: ASPIRIN 81 MG CHEWABLE TABLETS PO SCH (10:00)
[2018-07-13] MEDS ORDERED: TAMSULOSIN HCL 0.4 MG CAP PO SCH (10:12)
--- NOTE | 2018-07-13 10:22 | EKG ---
Test Reason : Blood Pressure : / mmHG Vent. Rate : 096 BPM Atrial Rate : 096 BPM P-R Int : 138 ms QRS Dur : 092 ms QT Int : 360 ms P-R-T Axes : 020 012 065 degrees QTc Int : 454 ms NORMAL SINUS RHYTHM NORMAL ECG WHEN COMPARED WITH ECG OF 03-JUL-2018 12:06, NO SIGNIFICANT CHANGE WAS FOUND Confirmed by ROMEO MARTINI MD ([id number]) on 07/13/2018 10:22:34 AM Referred By: Confirmed By:ROMEO MARTINI MD
[2018-07-13] MEDS ORDERED: FUROSEMIDE 40 MG/4 ML INJECTABLE VIAL IVPUSH ONE (10:45)
--- NOTE | 2018-07-13 10:46 | PN ---
Physical Exam: SUBJECTIVE: Patient seen this morning and reports the pressure is much better. He still feels it present but notes that it is less. Patient reports he is still urinating all night. Has no other complaints. OBJECTIVE: Vital Signs Temperature 97.9 F 07/13/18 08:48 Pulse Rate 92 H 07/13/18 08:48 Respiratory Rate 18 07/13/18 08:48 Blood Pressure 129/83 07/13/18 08:48 O2 Sat by Pulse Oximetry (%) 96 07/13/18 09:00 GENERAL: Awake, alert, and fully oriented, in no acute distress. HEAD: Normal with no signs of trauma. EYES: Pupils equal, round and reactive to light, no av nicking noted on exam NECK: no JVD noted LUNGS: Breath sounds equal, clear to auscultation bilaterally. No wheezes, and no crackles. No accessory muscle use. HEART: Regular rate and rhythm, normal S1 and S2 without murmur, rub or gallop. LOWER EXTREMITIES: 2+ pulses, warm, well-perfused. No calf tenderness. 2+ pitting edema, b/l sensation loss in feet NEUROLOGICAL: Cranial nerves II-XII intact. Normal speech. Normal gait. PSYCHIATRIC: Cooperative. Good eye contact. Appropriate mood and affect. SKIN: Warm, dry, normal turgor, no rashes or lesions noted, normal capillary refill. CBC, BMP 07/13/18 05:30 07/13/18 05:30 Active Medications Aspirin (Asa -) 81 mg PO DAILY [facility], [facility] Last Admin: 07/13/18 09:46 Dose: 81 mg Atorvastatin Calcium (Lipitor -) 40 mg PO HS [facility], [facility] Last Admin: 07/12/18 21:35 Dose: 40 mg Docusate Sodium (Colace -) 100 mg PO BID [facility], [facility] Last Admin: 07/13/18 09:46 Dose: 100 mg Enoxaparin Sodium (Lovenox -) 40 mg SQ DAILY [facility] Last Admin: 07/13/18 09:46 Dose: 40 mg Furosemide (Lasix -) 20 mg PO DAILY [facility] Last Admin: 07/13/18 09:46 Dose: 20 mg Furosemide (Lasix Injection -) 40 mg IVPUSH ONCE ONE Stop: 07/13/18 10:46 Insulin Aspart (Novolog Vial Sliding Scale -) 1 vial SQ [facility]; Protocol Last Admin: 07/13/18 06:29 Dose: 2 units Insulin Detemir (Levemir Vial) 50 units SQ BID@0700,2200 [facility], [facility]1983 Last Admin: 07/13/18 06:31 Dose: 50 units Lisinopril (Prinivil) 5 mg PO DAILY [facility] Last Admin: 07/13/18 09:46 Dose: 5 mg Metoprolol Succinate (Toprol Xl -) 25 mg PO DAILY [facility] Last Admin: 07/13/18 09:46 Dose: 25 mg Senna (Senna -) 1 tab PO HS [facility] Last Admin: 07/12/18 21:34 Dose: 1 tab Tamsulosin HCl (Flomax -) 0.4 mg PO DAILY@0830 [facility] ASSESSMENT/PLAN: Patient is a 58 y/o male with a history of DM, HTN, HLD, BPH, peripheral neuropathy, and GERD who is here for chest pressure. #chest pressure r/o ACS - monitor on tele obs - trop negative x 2 - ekg: no ST changes, repeat @ 9 - f/u Dr. Cordero - 07/04 echo: global hypokinesis, LV systolic fxn moderatly reduced - 07/04 stress test: EF: 46%, global hypokinesis, posterior lateral perfusion filling deficit - CTA negative for PE #mild bilteral hydronephroiss - seen on US - f/u abdominal CT #HTN - continue home meds #systolic chf - BNP: 700 - continue lasix - CXR: no congestive changes - atorvastatin 40 mg - one time dose lasix 40 mg IV #DM - continue home glargine 50 units BID - SS - last A1C: 13 #BPH - continue tmasulosin .4 mg #DVT ppx - lovenox 40 sq FEN - sodium/diabetic diet Dispo: f/u in morning for any changes
--- NOTE | 2018-07-13 11:55 | CON.CARD ---
Cardiology Consult (text) - Consultation Consultation Note: cc: cp hpi: 58 m hx dm, htn, syst chf, here with cp. Recent admit for atypical cp, had nuclear stress test showing no sig ischemia and started on chf meds. Went home but did not get meds due to insurance issues. Wed night felt brief episode of central chest pain, sharp. Resolved but pmd told to go to ER. Currently feeling fine, no cp. No sob palps dizzy loc pnd orthopnea. Mild le edema. No anginal sxs. Sees outside cardio at pmd office, does not know name. pmh: per hpi psh: appendectomy social: no tob fam: no premature cad, scd ros: per hpi; no fever, nvd, wt loss gib hematuria dysuria muscle pain meds: Home Medications Medication Instructions Recorded Gabapentin [Neurontin -] 300 mg PO BID 01/12/17 Insulin Lispro [Humalog] 10 unit SQ TIDCM 01/12/17 Sennosides [Senna -] 1 tab PO HS #15 tablet 01/17/17 Aspirin [ASA -] 81 mg PO DAILY tab.chew 07/05/18 Atorvastatin Ca [Lipitor] 20 mg PO HS #30 tablet 07/05/18 Docusate Sodium [Colace -] 100 mg PO BID #0 capsule 07/05/18 Furosemide [Lasix -] 20 mg PO DAILY #30 tablet 07/05/18 Insulin Glargine,Hum.rec.anlog 50 unit SQ BID #1 vial 07/05/18 [Lantus] Lisinopril [Prinivil] 5 mg PO DAILY #30 tablet 07/05/18 Metoprolol Succinate [Toprol XL -] 25 mg PO DAILY #30 tab.sr.24h 07/05/18 Sitagliptin Phosphate [Januvia] 50 mg PO DAILY 30 Days #30 tablet 07/05/18 pe: Vital Signs Period Temp Pulse Resp BP Sys/Ji Pulse Ox Last 24 Hr 97.3 F-98.2 F 90-97 -18 128-170/80-98 95-97 nad no jvd rrr s1s2 no mrg cta bl nl eff aaox3 trace pedal edema bl abd nt nd pos bs no jaundice diaphoresis pos dp pt no carotid bruits Laboratory Last Values WBC 8.4 K/mm3 (4.0-10.0) 07/13/18 05:30 RBC 4.85 M/mm3 (4.00-5.60) 07/13/18 05:30 Hgb 13.4 GM/dL (11.7-16.9) 07/13/18 05:30 Hct 41.6 % (35.4-49) 07/13/18 05:30 MCV 85.7 fl (80-96) 07/13/18 05:30 MCH 27.5 pg (25.7-33.7) 07/13/18 05:30 MCHC 32.1 g/dl (32.0-35.9) 07/13/18 05:30 RDW 13.0 % (11.9-15.9) 07/13/18 05:30 Plt Count 202 K/MM3 (134-434) 07/13/18 05:30 MPV 10.0 fl (7.5-11.1) 07/13/18 05:30 Absolute Neuts (auto) 5.1 K/mm3 (1.5-8.0) 07/13/18 05:30 Neutrophils % 61.2 % (42.8-82.8) 07/13/18 05:30 Lymphocytes % 25.5 % (8-40) 07/13/18 05:30 Monocytes % 10.2 % (3.8-10.2) 07/13/18 05:30 Eosinophils % 2.5 % (0-4.5) 07/13/18 05:30 Basophils % 0.6 % (0-2.0) 07/13/18 05:30 Nucleated RBC % 0 % (0-0) 07/13/18 05:30 D-Dimer 526 ng/ml (0-500) H 07/12/18 15:34 Sodium 143 mmol/L (136-145) 07/13/18 05:30 Potassium 3.6 mmol/L (3.5-5.1) 07/13/18 05:30 Chloride 102 mmol/L (98-107) 07/13/18 05:30 Carbon Dioxide 36 mmol/L (21-32) H 07/13/18 05:30 Anion Gap 4 MMOL/L (8-16) L 07/13/18 05:30 BUN 20 mg/dL (7-18) H 07/13/18 05:30 Creatinine 1.2 mg/dL (0.55-1.3) 07/13/18 05:30 Creat Clearance w eGFR > 60 (>60) 07/13/18 05:30 POC Glucometer 170 UNITS (80-120) 07/13/18 06:01 Random Glucose 153 mg/dL (74-106) H 07/13/18 05:30 Calcium 9.1 mg/dL (8.5-10.1) 07/13/18 05:30 Total Bilirubin 0.7 mg/dL (0.2-1) 07/13/18 05:30 AST 16 U/L (15-37) 07/13/18 05:30 ALT 27 U/L (13-61) 07/13/18 05:30 Alkaline Phosphatase 79 U/L (45-117) 07/13/18 05:30 Creatine Kinase 273 IU/L (26-308) 07/12/18 15:34 Creatine Kinase Index 1.4 % (0.0-5.0) 07/12/18 15:34 CK-MB (CK-2) 3.9 ng/mL (0.5-3.6) H 07/12/18 15:34 Troponin I < 0.02 ng/ml (0.00-0.05) 07/13/18 05:30 B-Natriuretic Peptide 734.4 pg/ml (5-125) H 07/12/18 15:34 Total Protein 7.0 g/dl (6.4-8.2) 07/13/18 05:30 Albumin 3.6 g/dl (3.4-5.0) 07/13/18 05:30 Urine Color Colorless 07/12/18 15:32 Urine Appearance Clear 07/12/18 15:32 Urine pH 6.0 (5.0-8.0) 07/12/18 15:32 Ur Specific [place] 1.003 (1.010-1.035) L 07/12/18 15:32 Urine Protein Negative (NEGATIVE) 07/12/18 15:32 Urine Glucose (UA) 1+ (NEGATIVE) H 07/12/18 15:32 Urine Ketones Negative (NEGATIVE) 07/12/18 15: Urine Blood Negative (NEGATIVE) 07/12/18 15: Urine Nitrite Negative (NEGATIVE) 07/12/18 15:32 Urine Bilirubin Negative (<2.0 mg/dL) 07/12/18 15:32 Urine Urobilinogen Negative mg/dL (0.2-1.0) 07/12/18 15:32 Ur Leukocyte Esterase Negative (NEGATIVE) 07/12/18 15:32 cta chest: no pe, no chf ecg: sr, nl intervals, no ischemic changes echo 08/2013: mild dec lvef, global hk echo 09/2013: mild dec lvef, inferolat hk, nl rv, no sig valve path echo 06/2018: mod dec lvef, global hk, nl rv, no sig valve path mibi 08/2013: mod inf scar with small periinfarct ischemia, lvef 35% mibi 06/2018: my read: mod inferolateral scar from apex to base with with minimal periinfarct ischemia, lvef 46%, global hk tele: sr a/p: 58 m hx dm, htn, syst chf, here with cp. cp: -atypical cp, resolved -trops negx3, ecg unremarkable. no signs acs -recent nuclear stress test w/o significant ischemia -no PE on CTA -no further cardiac testing at this time htn: -cont lisinopril and toprol for chf/htn chronic syst chf: -in 2013 found to have reduced lvef. Sent for cath then and per pt he did not need stent. Seems he has NICM. -cont toprol and lisinopril, lasix hydronephrosis: -?related to bph, plans per pmd, gu
--- NOTE | 2018-07-13 12:53 | PN ---
Teaching Attending Note Name of Resident: Mag Bowden ATTENDING PHYSICIAN STATEMENT I saw and evaluated the patient. I reviewed the resident's note and discussed the case with the resident. I agree with the resident's findings and plan as documented. SUBJECTIVE: No fever or chills. No CP at time of evaluation . no SOB. his cp was pressure like, and radiated to his L shoulder. resolved in < 30 min reports LE edema is worse since dc OBJECTIVE: NAD Cv : regularly irreg . No jVD Lungs: CTAB Ext : 2+ edema on legs . no erythyema or tenderness Abd: soft, NT, ND , bladder is palpated and percussed at level of umbilicus . ASSESSMENT AND PLAN: 58 y/o man with h/o Dm , HTN, HLP, and cardiomyopathy, with recent hospitalization for CP who presented with Cp again. 1- CP : EG reviewed, trop Nl Echo and stress last admisison reviewed. seen by card and was determined to need no further testing. - cont BB and ASa - f/u with card as out p t 2- HTN: cont lisinopril and BB started last admisison. pt has not been taking 3- H/o systolic heart failure. LE edema is worse compared to discharge date. - give extra dose of lasix 40 mg IV - cont home po lasix. will d/w card if dose should be increased to 40 daily 4- b/l [place] on CT of chest : likely due to BPH. not taking flomax - start flomax - post void bladder scan - get CT of abd/pelvis to r/o other causes of obstruction - urology c/s 5- DM : last A1c 13. - cont insulin . - educate dispo : pending Ct scan . hopefully later today
--- NOTE | 2018-07-13 14:37 | CON.GU ---
Consult Consult Specialty:: Referred by:: ED Reason for Consultation:: BPH, urinary retention, hydronephrosis - History of Present Illness Chief Complaint: BPH, urinary retention, hydronephrosis History of Present Illness: 58 year old male with chest pain. Noted to have mild bilateral hydronephrosis, BPH and distended bladder. He reports worsening LUTS recently. Has not seen a urologist previously. - History Source History Provided By: Patient Limitations to Obtaining History: No Limitations - Past Medical History Cardio/Vascular: Yes: HTN Pulmonary: Yes: Asthma Renal/: Yes: BPH Endocrine: Yes: Diabetes Mellitus - Past Surgical History Past Surgical History: Yes: Appendectomy - Alcohol/Substance Use Hx Alcohol Use: No History of Substance Use: reports: None - Smoking History Smoking history: Never smoked Have you smoked in the past 12 months: No - Social History ADL: Independent History of Recent Travel: No Home Medications - Allergies Allergies/Adverse Reactions: Allergies Allergy/AdvReac Type Severity Reaction Status Date / Time No Known Allergies Allergy Verified 07/12/18 14:06 - Home Medications Home Medications: Ambulatory Orders Gabapentin [Neurontin -] 300 mg PO BID 01/12/17 Insulin Lispro [Humalog] 10 unit SQ TIDCM 01/12/17 Sennosides [Senna -] 1 tab PO HS #15 tablet 01/17/17 Aspirin [ASA -] 81 mg PO DAILY tab.chew 07/05/18 Atorvastatin Ca [Lipitor] 20 mg PO HS #30 tablet 07/05/18 Docusate Sodium [Colace -] 100 mg PO BID #0 capsule 07/05/18 Furosemide [Lasix -] 20 mg PO DAILY #30 tablet 07/05/18 Insulin Glargine,Hum.rec.anlog [Lantus] 50 unit SQ BID #1 vial 07/05/18 Lisinopril [Prinivil] 5 mg PO DAILY #30 tablet 07/05/18 Metoprolol Succinate [Toprol XL -] 25 mg PO DAILY #30 tab.sr.24h 07/05/18 Sitagliptin Phosphate [Januvia] 50 mg PO DAILY 30 Days #30 tablet 07/05/18 Family Disease History - Family Disease History Family Disease History: Other: Sister (angina) Review of Systems - Review of Systems Genitourinary: reports: Frequency. denies: Hematuria, Incontinence Physical Exam- Vital Signs: Vital Signs Temperature 97.9 F 07/13/18 08:48 Pulse Rate 92 H 07/13/18 08:48 Respiratory Rate 18 07/13/18 08:48 Blood Pressure 129/83 07/13/18 08:48 O2 Sat by Pulse Oximetry (%) 96 07/13/18 09:00 Constitutional: Yes: Well Nourished, No Distress, Calm Renal/: No: Bladder Distention, CVA Tenderness - Left, CVA Tenderness - Right , Ray Present Kidneys: No: Flank Pain Left, FLank Pain Right Labs: CBC, BMP 07/13/18 05:30 07/13/18 05:30 Problem List - Problems (1) Benign localized hyperplasia of prostate with urinary obstruction Assessment/Plan: start on flomax. follow up as outpatient Code(s): N40.1 - BENIGN PROSTATIC HYPERPLASIA WITH LOWER URINARY TRACT SYMP; N13.8 - OTHER OBSTRUCTIVE AND REFLUX UROPATHY (2) Bilateral hydronephrosis Code(s): N13.30 - UNSPECIFIED HYDRONEPHROSIS
[2018-07-13 15:03] VITALS: BP 136/72; TEMP 98
--- NOTE | 2018-07-13 15:48 | DS ---
Physical Exam: SUBJECTIVE: Patient seen this morning and reports the pressure is much better. He still feels it present but notes that it is less. Patient reports he is still urinating all night. Has no other complaints. OBJECTIVE: Vital Signs Period Temp Pulse Resp BP Sys/Ji Pulse Ox Last 24 Hr 97.3 F-98.2 F 90-94 18-18 128-149/72-89 95-97 PHYSICAL EXAM GENERAL: Awake, alert, and fully oriented, in no acute distress. HEAD: Normal with no signs of trauma. EYES: Pupils equal, round and reactive to light, no av nicking noted on exam NECK: no JVD noted LUNGS: Breath sounds equal, clear to auscultation bilaterally. No wheezes, and no crackles. No accessory muscle use. HEART: Regular rate and rhythm, normal S1 and S2 without murmur, rub or gallop. LOWER EXTREMITIES: 2+ pulses, warm, well-perfused. No calf tenderness. 2+ pitting edema, b/l sensation loss in feet NEUROLOGICAL: Cranial nerves II-XII intact. Normal speech. Normal gait. PSYCHIATRIC: Cooperative. Good eye contact. Appropriate mood and affect. SKIN: Warm, dry, normal turgor, no rashes or lesions noted, normal capillary refill. LABS CBC, BMP 07/13/18 05:30 07/13/18 05:30 HOSPITAL COURSE: Date of Admission:07/12/18 Patient admitted to the hospital for chest pain. Patient had negative troponins and no ekg changes. Patient evaluated by Cardiology. Patient presented noncompliant with his medication and was advised to continue his home dose of medications and follow up with cardiology for any adjustments and further monitoring. On imaging patient was found to have mild bilateral hydronephrosis. Discussed with Urologist, and patient can follow up as an outpatient. Patients home medications continued and vitals stable upon discharge. CT chest: no pulmonary embolism, mild bilateral hydronephrosis CXR: right base atelectasis Renal Ultrasound mild bilateral hydronephrosis CT abdomen: mild to moderate bilateral hydronephrosis and hydroreter without obvious obstruction, markedly distended urinary bladder, prostatic enlargement Date of Discharge: 07/13/18 Minutes to complete discharge: 40 Discharge Summary Reason For Visit: CHEST PAIN Current Active Problems Benign localized hyperplasia of prostate with urinary obstruction (Acute) Bilateral hydronephrosis (Acute) Condition: Improved - Instructions Diet, Activity, Other Instructions: You were admitted to the hospital because of chest pain. While you were here we monitored your heart and found it is functioning properly. Please make an appointment with the product manufacturing professional, Dr. Cordero to continue to monitor your heart. We changed you atorvastatin to 40 mg daily. Please continue to take this once a day by mouth. While you were here we did imaging of your kidneys. This imaging shows you have some fluid in your kidneys. This may be due to your benign prostatic hyperplasia (BPH). Please follow up with the urologist Dr. Bruno to monitor this. it is very important to see him as you might have renal failure with this condition . It is very important that you continue to take your home medications as they are prescribed. It is also very important to continue to monitor your sugar and take your insulin. Uncontrolled diabetes can lead to worsening of vascular disease which may cause kidney disease and heart disease. Return to the Emergency Department if you have any more chest pain, nausea, vomiting, or shortness of breath. Referrals: Lazaro Cordero MD [Staff Physician] - 1 Week Purnima Velazco MD [Primary Care Provider] - 1 Week Talib Bruno MD [Staff Physician] - 1 Week Disposition: HOME - Home Medications Comprehensive Discharge Medication List: Ambulatory Orders Gabapentin [Neurontin -] 300 mg PO BID 01/12/17 Insulin Lispro [Humalog] 10 unit SQ TIDCM 01/12/17 Sennosides [Senna -] 1 tab PO HS #15 tablet 01/17/17 Aspirin [ASA -] 81 mg PO DAILY tab.chew 07/05/18 Atorvastatin Ca [Lipitor] 20 mg PO HS #30 tablet 07/05/18 Docusate Sodium [Colace -] 100 mg PO BID #0 capsule 07/05/18 Furosemide [Lasix -] 20 mg PO DAILY #30 tablet 07/05/18 Insulin Glargine,Hum.rec.anlog [Lantus] 50 unit SQ BID #1 vial 07/05/18 Lisinopril [Prinivil] 5 mg PO DAILY #30 tablet 07/05/18 Metoprolol Succinate [Toprol XL -] 25 mg PO DAILY #30 tab.sr.24h 07/05/18 Sitagliptin Phosphate [Januvia] 50 mg PO DAILY 30 Days #30 tablet 07/05/18 Tamsulosin HCl [Flomax] 0.4 mg PO DAILY #30 cap.er.24h 07/13/18 This patient is new to me today: No Emergency Visit: No Critical Care patient: No - Discharge Referral Referred to [facility] No
== END 2018-07-13 18:45 | disposition home or self-care (01) ==
LOC: JER 14:03 → JERBED 17:29 → J4W 20:23
PROVIDERS: ADMIT Internal Medicine; ATTEND Internal Medicine
PROC: 3E033GC Introduction of Other Therapeutic Substance into Peripheral Vein, Percutaneous Approach (ICD-10-PCS; principal; 2018-07-12)
PROC: 3E013VG Introduction of Insulin into Subcutaneous Tissue, Percutaneous Approach (ICD-10-PCS; 2018-07-12)
PROC: 3E013GC Introduction of Other Therapeutic Substance into Subcutaneous Tissue, Percutaneous Approach (ICD-10-PCS; 2018-07-12)
DX: R07.89 Other chest pain (principal); I11.0 Hypertensive heart disease with heart failure; I50.22 Chronic systolic (congestive) heart failure; E78.5 Hyperlipidemia, unspecified; E11.65 Type 2 diabetes mellitus with hyperglycemia; G62.9 Polyneuropathy, unspecified; K21.9 Gastro-esophageal reflux disease without esophagitis; I25.10 Atherosclerotic heart disease of native coronary artery without angina pectoris; R79.89 Other specified abnormal findings of blood chemistry; N40.1 Benign prostatic hyperplasia with lower urinary tract symptoms; N13.30 Unspecified hydronephrosis; E66.9 Obesity, unspecified; Z68.35 Body mass index [BMI] 35.0-35.9, adult; Z91.14 Patient's other noncompliance with medication regimen; Z86.14 Personal history of Methicillin resistant Staphylococcus aureus infection; Z79.4 Long term (current) use of insulin; Z79.84 Long term (current) use of oral hypoglycemic drugs
CPT/HCPCS: 36415; 71046-TC-FY; 71275-TC; 74176-TC; 76775-TC; 80053; 81003; 82550; 82553; 82962; 83880; 84484; 85025; 85379; 93005; 93010; 99285-25; G0378

== ENCOUNTER 2018-09-10 14:34 | Inpatient (IN) | payer OTHER ==
[2018-09-10] MEDS ORDERED: SODIUM CHLORIDE 500 ML IV STA (14:57)
--- NOTE | 2018-09-10 15:06 | PDOC ---
History of Present Illness - General Chief Complaint: Syncope/Near Syncope Stated Complaint: Syncope/Near Syncope Time Seen by Provider: 09/10/18 14:44 History Source: Patient Exam Limitations: No Limitations - History of Present Illness Initial Comments: 09/10/18 15:06 Patient is 58M with history of CHF (moderately reduced EF, septal wall abnormality concerning for conduction abnormality), DM, HTN, HLD, BPH, peripheral neuropathy, and GERD here today complaining of syncope today. Patient states that he was feeling weak and lightheaded while shopping today. He went home and then had unwitnessed syncope. His family member states that he was parking the car and did not see what happened. Denies postictal period. Patient states that he recently had his bp meds and diuretics increased 1 week ago. Endorses substernal pressure and some shortness of breath. Patient states that he has not been eating as much because of a general loss of appetite. Denies dysuria. Denies leg swelling. Past History - Past Medical History Allergies/Adverse Reactions: Allergies Allergy/AdvReac Type Severity Reaction Status Date / Time No Known Allergies Allergy Verified 07/12/18 14:06 Home Medications: Ambulatory Orders Gabapentin [Neurontin -] 300 mg PO BID 01/12/17 Insulin Lispro [Humalog] 10 unit SQ TIDCM 01/12/17 Sennosides [Senna -] 1 tab PO HS #15 tablet 01/17/17 Aspirin [ASA -] 81 mg PO DAILY tab.chew 07/05/18 Docusate Sodium [Colace -] 100 mg PO BID #0 capsule 07/05/18 Furosemide [Lasix -] 20 mg PO DAILY #30 tablet 07/05/18 Insulin Glargine,Hum.rec.anlog [Lantus] 50 unit SQ BID #1 vial 07/05/18 Lisinopril [Prinivil] 5 mg PO DAILY #30 tablet 07/05/18 Metoprolol Succinate [Toprol XL -] 25 mg PO DAILY #30 tab.sr.24h 07/05/18 Sitagliptin Phosphate [Januvia] 50 mg PO DAILY 30 Days #30 tablet 07/05/18 Atorvastatin Ca [Lipitor] 40 mg PO HS #30 tablet 07/13/18 Tamsulosin HCl [Flomax] 0.4 mg PO DAILY #30 cap.er.24h 07/13/18 Anemia: No Asthma: Yes Cancer: Yes (LYMPHOMA) Cardiac Disorders: No CVA: No COPD: No CHF: No Dementia: No Diabetes: Yes (insulin) GI Disorders: No Disorders: No HTN: Yes Hypercholesterolemia: No Liver Disease: No Psychiatric Problems: Yes (anxiety) Seizures: No Thyroid Disease: No - Surgical History Abdominal Surgery: Yes Appendectomy: Yes Cardiac Surgery: No Cholecystectomy: No Lung Surgery: No Neurologic Surgery: No Orthopedic Surgery: No - Immunization History Immunization Up to Date: Yes - Suicide/Smoking/Psychosocial Hx Smoking History: Never smoked Have you smoked in the past 12 months: No Information on smoking cessation initiated: No Hx Alcohol Use: No Drug/Substance Use Hx: No Substance Use Type: None Hx Substance Use Treatment: No Review of Systems - Review of Systems Comments:: 09/10/18 15:11 GENERAL/CONSTITUTIONAL: No fever or chills. No weakness. HEAD, EYES, EARS, NOSE AND THROAT: No change in vision. No sore throat. CARDIOVASCULAR: +chest pain +shortness of breath RESPIRATORY: No cough, wheezing, or hemoptysis. GASTROINTESTINAL: No nausea, vomiting, diarrhea or constipation. GENITOURINARY: No dysuria, frequency, or change in urination. MUSCULOSKELETAL: No joint or muscle swelling or pain. No neck or back pain. SKIN: No rash NEUROLOGIC: No headache, vertigo, +loss of consciousness, no change in strength/ sensation. ENDOCRINE: No increased thirst. No abnormal weight change HEMATOLOGIC/LYMPHATIC: No anemia, easy bleeding, or history of blood clots. ALLERGIC/IMMUNOLOGIC: No hives or skin allergy. *Physical Exam - Vital Signs Last Vital Signs Temp Pulse Resp BP Pulse Ox 97.4 F L 105 H 16 86/58 L 95 09/10/18 14:39 09/10/18 14:39 09/10/18 14:39 09/10/18 14:39 09/10/18 14:39 - Physical Exam Comments: 09/10/18 15:12 GENERAL: Awake, alert, and fully oriented, in no acute distress HEAD: 5x3 hematoma over r temporal region, normocephalic EYES: PERRLA, EOMI, sclera anicteric, conjunctiva clear ENT: Auricles normal inspection, hearing grossly normal, nares patent, oropharynx clear without exudates. Moist mucosa NECK: Normal ROM, supple, no lymphadenopathy, JVD, or masses, no midline tenderness LUNGS: No distress, speaks full sentences, clear to auscultation bilaterally HEART: Regular rate and rhythm, normal S1 and S2, no murmurs, rubs or gallops, peripheral pulses normal and equal bilaterally. ABDOMEN: Soft, nontender, normoactive bowel sounds. No guarding, no rebound. No masses EXTREMITIES: Abrasions over knuckles and right knee, nontender, Normal range of motion, no edema. No clubbing or cyanosis. NEUROLOGICAL: Cranial nerves II through XII grossly intact. Normal speech, no focal sensorimotor deficits SKIN: Warm, Dry, normal turgor, no rashes or lesions noted. Moderate Sedation - Procedure Monitoring Vital Signs: Procedure Monitoring Vital Signs Temperature 97.4 F L 09/10/18 14:39 Pulse Rate 105 H 09/10/18 14:39 Respiratory Rate 16 09/10/18 14:39 Blood Pressure 86/58 L 09/10/18 14:39 O2 Sat by Pulse Oximetry (%) 95 09/10/18 14:39 ED Treatment Course - LABORATORY CBC & Chemistry Diagram: 09/10/18 15:30 09/10/18 15:30 - RADIOLOGY Radiology Studies Ordered: Category Date Time Status CHEST X-RAY PORTABLE* [RAD] Stat Radiology 09/10/18 14:57 Ordered Medical Decision Making - Medical Decision Making 09/10/18 15:13 Patient is 58M with history of CHF, HTN, DM, GERD here today with syncope. Vital signs notable for map of 66 and tachycardia. HR 98 on my exam. Given recent change in medications and decreased po intake, suspect over-diuresis. DDx includes, but is not limited to: arrhythmia, acs, dehydration. Will workup head with CT, on aspirin, no other blood thinners. No other trauma workup required. Will admit. 09/10/18 17:17 CBC normal, CMP shows TONA. Trop neg. CXR/CT normal D/w Dr Aguirre, tele obs for syncope. *DC/Admit/Observation/Transfer Diagnosis at time of Disposition: Syncope, Dehydration - Discharge Dispostion Condition at time of disposition: Stable Decision to Admit order: Yes - Referrals - Patient Instructions - Post Discharge Activity
[2018-09-10 15:52] LABS: BASO % 0.3 % (0-2.0); EOS % 1.9 % (0-4.5); HEMATOCRIT 38.2 % (35.4-49); HEMOGLOBIN 13.3 GM/dL (11.7-16.9); LYMPH % 19.3 % (8-40); MCH 29.5 pg (25.7-33.7); MCHC 34.8 g/dl (32.0-35.9); MEAN CELL VOLUME 84.8 fl (80-96); MEAN PLT VOLUME 10.1 fl (7.5-11.1); MONO % 6.8 % (3.8-10.2); NEUT % 71.7 % (42.8-82.8); PLATELET COUNT 212 K/MM3 (134-434); WHITE BLOOD COUNT 10.6 K/mm3 (4.0-10.0)
--- NOTE | 2018-09-10 15:53 | PDOC ---
Attending Attestation - Resident Resident Name: MorganTalib aguillon - ED Attending Attestation I have performed the following: I have examined & evaluated the patient, The case was reviewed & discussed with the resident, I agree w/resident's findings & plan, Exceptions are as noted - HPI HPI: 09/10/18 15:39 The patient is a 58 year old male with a PMH of DM, HTN, HLD, BPH, peripheral neuropathy, and GERD who presents to the ER with weakness and lightheadedness today, as well as syncopal episode. Patient states he had recent med changes. The patient was shopping this morning and began to feel weak and lightheaded, subsequently went home and lost consciousness. Pt states that he has been urinating very frequently because he is on a diuretic. He notes that his legs were very swollen previously, but that has resolved completely. Pt endorses headstrike. Is on baby aspirin, no other AC. Denies MASON/N/V Currently. The patient denies chest pain, shortness of breath, headache and dizziness. Denies fever, chills, nausea, vomit, diarrhea and constipation. Denies dysuria, frequency, urgency and hematuria. Allergies: NKA Past surgical history: None reported. Social history: No reported alcohol, drug or cigarette use. - Physicial Exam PE: 09/10/18 15:53 GENERAL: Awake, alert, and fully oriented, in no acute distress. HEAD: + hematoma to forehead EYES: PERRLA, EOMI, sclera anicteric, conjunctiva clear ENT: Auricles normal inspection, hearing grossly normal, nares patent, oropharynx clear without exudates. Moist mucosa NECK: Nontender, no stepoffs, Normal ROM, supple, no lymphadenopathy, JVD, or masses LUNGS: Breath sounds equal, clear to auscultation bilaterally. No wheezes, and no crackles HEART: Regular rate and rhythm, normal S1 and S2, no murmurs, rubs or gallops ABDOMEN: Soft, nontender, normoactive bowel sounds. No guarding, no rebound. No masses EXTREMITIES: Normal range of motion, no edema. No clubbing or cyanosis. No cords, erythema, or tenderness NEUROLOGICAL: Cranial nerves II through XII intact. 5/5 strength and sensation in all extremities, Normal speech, normal gait, normal cerebellar function SKIN: Warm, Dry, normal turgor, no rashes or lesions noted. - Critical Care Time Total Critical Care Time: 60 Critical Care Statement: The care of this patient involved high complexity decision making to prevent further life threatening deterioration of the patient 's condition and/or to evaluate & treat vital organ system(s) failure or risk of failure. - Medical Decision Making 09/10/18 15:54 58 M with syncope, weakness, lightheadedness. In ED is hypotensive and tachycardic. Possible dehydration 2/2 overdiuresis. Also consider sepsis though pt denies fevers and has no focal infectious symptoms. - Labs - CXR, UA - Gentle IVF bolus - Admit tele
[2018-09-10 16:16] LABS: ALBUMIN 3.5 g/dl (3.4-5.0); ALK PHOS 117 U/L (45-117); ANION GAP 5 MMOL/L (8-16); BILIRUBIN,TOTAL 0.4 mg/dL (0.2-1); BLOOD UREA NITROGEN 53 mg/dL (7-18); CALCIUM 9.2 mg/dL (8.5-10.1); CHLORIDE 102 mmol/L (98-107); CO2 31 mmol/L (21-32); CREATININE 2.2 mg/dL (0.55-1.3); GLUCOSE,RANDOM 158 mg/dL (74-106); MAGNESIUM 1.8 mg/dL (1.8-2.4); N-TERMINAL BNP 217.4 pg/ml (5-125); POTASSIUM 4.4 mmol/L (3.5-5.1); SGOT/AST 14 U/L (15-37); SGPT/ALT 38 U/L (13-61); SODIUM 137 mmol/L (136-145); TOT PROT 7.5 g/dl (6.4-8.2)
[2018-09-10 16:36] LABS: INR 1.03 (0.83-1.09); PROTHROMBIN TIME (PATIENT) 12.2 SEC (9.7-13.0)
[2018-09-10 16:45] LABS: URINE APPEARANCE CLEAR; URINE BILIRUBIN NEGATIVE (<2.0 mg/dL); URINE COLOR STRAW; URINE GLUCOSE (UA) 3+ (NEGATIVE); URINE KETONE NEGATIVE (NEGATIVE); URINE LEUK ESTERASE NEGATIVE (NEGATIVE); URINE NITRITE NEGATIVE (NEGATIVE); URINE PROTEIN NEGATIVE (NEGATIVE); URINE UROBILINOGEN NEGATIVE mg/dL (0.2-1.0)
--- NOTE | 2018-09-10 19:27 | HP ---
Admitting History and Physical - Primary Care Physician PCP: Nancy Aguirre - Admission History of Present Illness: 58M with history of CHF (moderately reduced EF, septal wall abnormality concerning for conduction abnormality), DM, HTN, HLD, BPH, peripheral neuropathy , and GERD here today complaining of syncope today. Patient states that he was feeling weak and lightheaded while shopping today. He went home and then had unwitnessed syncope. His family member states that he was parking the car and did not see what happened. Denies postictal period. Patient states that he recently had his bp meds and diuretics increased 1 week ago. Endorses substernal pressure and some shortness of breath. Patient states that he has not been eating as much because of a general loss of appetite. Denies dysuria. Denies leg swelling. - Past Medical History Cardiovascular: Yes: HTN Pulmonary: Yes: Asthma Renal/: Yes: BPH Endocrine: Yes: Diabetes Mellitus - Past Surgical History Past Surgical History: Yes: Appendectomy - Smoking History Smoking history: Never smoked Have you smoked in the past 12 months: No - Alcohol/Substance Use Hx Alcohol Use: No History of Substance Use: reports: None - Social History ADL: Independent History of Recent Travel: No Home Medications - Allergies Allergies/Adverse Reactions: Allergies Allergy/AdvReac Type Severity Reaction Status Date / Time No Known Allergies Allergy Verified 07/12/18 14:06 - Home Medications Home Medications: Ambulatory Orders Gabapentin [Neurontin -] 300 mg PO BID 01/12/17 Insulin Lispro [Humalog] 10 unit SQ TIDCM 01/12/17 Sennosides [Senna -] 1 tab PO HS #15 tablet 01/17/17 Aspirin [ASA -] 81 mg PO DAILY tab.chew 07/05/18 Docusate Sodium [Colace -] 100 mg PO BID #0 capsule 07/05/18 Furosemide [Lasix -] 20 mg PO DAILY #30 tablet 07/05/18 Insulin Glargine,Hum.rec.anlog [Lantus] 50 unit SQ BID #1 vial 07/05/18 Lisinopril [Prinivil] 5 mg PO DAILY #30 tablet 07/05/18 Metoprolol Succinate [Toprol XL -] 25 mg PO DAILY #30 tab.sr.24h 07/05/18 Atorvastatin Ca [Lipitor] 40 mg PO HS #30 tablet 07/13/18 Tamsulosin HCl [Flomax] 0.4 mg PO DAILY #30 cap.er.24h 07/13/18 Family Disease History - Family Disease History Family Disease History: Other: Sister (angina) Physical Examination Vital Signs: Vital Signs Temperature 98 F 09/10/18 18:42 Pulse Rate 94 H 09/10/18 18:42 Respiratory Rate 17 09/10/18 18:42 Blood Pressure 104/62 09/10/18 18:42 O2 Sat by Pulse Oximetry (%) 99 09/10/18 18:42 Constitutional: Yes: No Distress HENT: Yes: Atraumatic Neck: Yes: Supple Cardiovascular: Yes: Regular Rate and Rhythm Respiratory: Yes: CTA Bilaterally Gastrointestinal: Yes: Normal Bowel Sounds Extremities: Yes: WNL Edema: No Neurological: Yes: Alert, Oriented Labs: CBC, BMP 09/10/18 15:30 09/10/18 15:30 Imaging - Results Chest X-ray: Report Reviewed Cat Scan: Report Reviewed Problem List - Problems (1) Syncope Assessment/Plan: feeling good tele monitor fu cardiac enzymes cardiology consult Code(s): R55 - SYNCOPE AND COLLAPSE (2) Diabetes Assessment/Plan: fu bgms cover with insulin Code(s): E11.9 - TYPE 2 DIABETES MELLITUS WITHOUT COMPLICATIONS Qualifiers: (3) Hypercholesterolemia Code(s): E78.00 - PURE HYPERCHOLESTEROLEMIA, UNSPECIFIED (4) Hypertension Assessment/Plan: on meds monitor Code(s): I10 - ESSENTIAL (PRIMARY) HYPERTENSION Qualifiers: (5) Dehydration Assessment/Plan: hold lasix iv hydration monitor cr Code(s): E86.0 - DEHYDRATION Assessment/Plan Laboratory Tests 09/10/18 09/10/18 09/10/18 15:30 15:30 15:30 WBC 10.6 H RBC 4.50 Hgb 13.3 Hct 38.2 MCV 84.8 MCH 29.5 MCHC 34.8 RDW 13.0 Plt Count 212 MPV 10.1 Absolute Neuts (auto) 7.6 Neutrophils % 71.7 Lymphocytes % 19.3 D Monocytes % 6.8 Eosinophils % 1.9 Basophils % 0.3 Nucleated RBC % 0 PT with INR 12.20 INR 1.03 Sodium 137 Potassium 4.4 Chloride 102 Carbon Dioxide 31 Anion Gap 5 L BUN 53 H Creatinine 2.2 H Creat Clearance w eGFR 30.68 Random Glucose 158 H Calcium 9.2 Magnesium 1.8 Total Bilirubin 0.4 AST 14 L ALT 38 Alkaline Phosphatase 117 Creatine Kinase 140 Troponin I < 0.02 B-Natriuretic Peptide 217.4 H Total Protein 7.5 Albumin 3.5 Urine Color Urine Appearance Urine pH Ur Specific [place] Urine Protein Urine Glucose (UA) Urine Ketones Urine Blood Urine Nitrite Urine Bilirubin Urine Urobilinogen Ur Leukocyte Esterase 09/10/18 16:29 WBC RBC Hgb Hct MCV MCH MCHC RDW Plt Count MPV Absolute Neuts (auto) Neutrophils % Lymphocytes % Monocytes % Eosinophils % Basophils % Nucleated RBC % PT with INR INR Sodium Potassium Chloride Carbon Dioxide Anion Gap BUN Creatinine Creat Clearance w eGFR Random Glucose Calcium Magnesium Total Bilirubin AST ALT Alkaline Phosphatase Creatine Kinase Troponin I B-Natriuretic Peptide Total Protein Albumin Urine Color Straw Urine Appearance Clear Urine pH 5.0 Ur Specific [place] 1.007 L Urine Protein Negative Urine Glucose (UA) 3+ H Urine Ketones Negative Urine Blood Negative Urine Nitrite Negative Urine Bilirubin Negative Urine Urobilinogen Negative Ur Leukocyte Esterase Negative Active Medications Generic Name Dose Route Start Last Admin Trade Name Freq PRN Reason Stop Dose Admin Aspirin 81 mg 09/12/18 10:00 09/12/18 10:00 Asa - PO 81 mg DAILY [facility] Administration Atorvastatin Calcium 40 mg 09/11/18 22:00 09/11/18 21:54 Lipitor - PO 40 mg HS [facility] Administration Docusate Sodium 100 mg 09/11/18 22:00 09/12/18 10:00 Colace - PO 100 mg BID [facility] Administration Gabapentin 300 mg 09/11/18 22:00 09/12/18 10:00 Neurontin - PO 300 mg BID [facility] Administration Sodium Chloride 1,000 mls @ 100 mls/hr 09/11/18 14:45 09/12/18 14:45 Normal Saline - IV Not Given ASDIR [facility] Insulin Aspart 1 vial 09/11/18 16:30 09/12/18 16:19 Novolog Vial Sliding Scale - SQ 10 units ACHS [facility] Administration Protocol Insulin Detemir 50 units 09/11/18 16:30 09/12/18 16:20 Levemir Vial SQ 50 units BIDI [facility] Administration Metoprolol Succinate 25 mg 09/12/18 10:00 09/12/18 10:00 Toprol Xl - PO 25 mg DAILY [facility] Administration Senna 1 tab 09/11/18 22:00 09/11/18 21:54 Senna - PO 1 tab HS [facility] Administration Sodium Polystyrene Sulfonate 15 gm 09/12/18 16:44 Kayexalate - PO 09/12/18 16:45 ONCE ONE Tamsulosin HCl 0.4 mg 09/12/18 08:30 09/12/18 10:00 Flomax - PO 0.4 mg DAILY@0830 [facility] Administration
[2018-09-10] MEDS ORDERED: ATORVASTATIN CA 40 MG TABLET (FP) PO SCH (22:00)
[2018-09-10] MEDS ORDERED: SENNOSIDES 8.6MG TABLET (FP) PO SCH (22:00)
[2018-09-10] MEDS ORDERED: ATORVASTATIN CA 40 MG TABLET (FP) ONE (22:35)
[2018-09-10] MEDS ORDERED: DOCUSATE SODIUM 100 MG CAPSULE (FP) PO ONE (22:36)
[2018-09-10] MEDS ORDERED: GABAPENTIN 100 MG CAPSULE (FP) ONE (22:36)
[2018-09-10] MEDS: DOCUSATE SODIUM 100 MG CAPSULE (FP) PO SCH (22:38)
[2018-09-10] MEDS: GABAPENTIN 300 MG CAPSULE (FP) PO SCH (22:38)
[2018-09-11] MEDS ORDERED: ACETAMINOPHEN 325 MG TABLET (FP) ONE (05:00)
[2018-09-11] MEDS: INSULIN (NOVOLOG) ASPART 100 UNITS/ML 10ML VIAL SQ SCH ×2 (07:30→12:36)
[2018-09-11] MEDS ORDERED: PATIENT'S OWN MEDICATION (NON-FORMULARY) (Insulin Lispro [Humalog] 10 UNIT) SQ SCH (08:00)
[2018-09-11] MEDS ORDERED: TAMSULOSIN HCL 0.4 MG CAP PO SCH (08:30)
[2018-09-11] MEDS: GABAPENTIN 300 MG CAPSULE (FP) PO SCH ×2 (09:26→21:54)
[2018-09-11] MEDS: DOCUSATE SODIUM 100 MG CAPSULE (FP) PO SCH ×2 (09:26→21:54)
--- NOTE | 2018-09-11 09:35 | CON.CARD ---
Cardiology Consult (text) - Consultation Consultation Note: - Consultation Consultation Note: cc: lightheadedness hpi: 58 m hx dm, htn, syst chf, here with lightheadedness, syncope. Morning prior to admission he was walking, felt weak and lightheaded and went home and lost consciousness. He was feeling well last month, started getting more and more swelling late July and saw one of his doctors early aug, dose of lasix ws doubled. Edema now resolved. Had been getting mild dizziness occasionally in the last two weeks prior to this syncopal episode. No chest pain, sob, palps , diaphoresis. Labs showed Cr 2.2 (prior 1.2), Received IVF. Feels better now, wants to go home pmh: per hpi psh: appendectomy social: no tob fam: no premature cad, scd ros: per hpi; no fever, nvd, wt loss gib hematuria dysuria muscle pain meds: Ambulatory Orders Gabapentin [Neurontin -] 300 mg PO BID 01/12/17 Insulin Lispro [Humalog] 10 unit SQ TIDCM 01/12/17 Sennosides [Senna -] 1 tab PO HS #15 tablet 01/17/17 Aspirin [ASA -] 81 mg PO DAILY tab.chew 07/05/18 Docusate Sodium [Colace -] 100 mg PO BID #0 capsule 07/05/18 Furosemide [Lasix -] 20 mg PO DAILY #30 tablet 07/05/18 Insulin Glargine,Hum.rec.anlog [Lantus] 50 unit SQ BID #1 vial 07/05/18 Lisinopril [Prinivil] 5 mg PO DAILY #30 tablet 07/05/18 Metoprolol Succinate [Toprol XL -] 25 mg PO DAILY #30 tab.sr.24h 07/05/18 Atorvastatin Ca [Lipitor] 40 mg PO HS #30 tablet 07/13/18 Tamsulosin HCl [Flomax] 0.4 mg PO DAILY #30 cap.er.24h 07/13/18 pe: Vital Signs Period Temp Pulse Resp BP Sys/Ji Pulse Ox Last 24 Hr 97.4 F-98 F 86-105 15-19 86-123/58-92 95-99 nad no jvd rrr s1s2 no mrg cta bl nl eff aaox3 trace pedal edema bl abd nt nd pos bs no jaundice diaphoresis pos dp pt no carotid bruits Laboratory Last Values WBC 10.6 K/mm3 (4.0-10.0) H 09/10/18 15:30 RBC 4.50 M/mm3 (4.00-5.60) 09/10/18 15:30 Hgb 13.3 GM/dL (11.7-16.9) 09/10/18 15:30 Hct 38.2 % (35.4-49) 09/10/18 15:30 MCV 84.8 fl (80-96) 09/10/18 15:30 MCH 29.5 pg (25.7-33.7) 09/10/18 15:30 MCHC 34.8 g/dl (32.0-35.9) 09/10/18 15:30 RDW 13.0 % (11.9-15.9) 09/10/18 15:30 Plt Count 212 K/MM3 (134-434) 09/10/18 15:30 MPV 10.1 fl (7.5-11.1) 09/10/18 15:30 Absolute Neuts (auto) 7.6 K/mm3 (1.5-8.0) 09/10/18 15:30 Neutrophils % 71.7 % (42.8-82.8) 09/10/18 15:30 Lymphocytes % 19.3 % (8-40) D 09/10/18 15:30 Monocytes % 6.8 % (3.8-10.2) 09/10/18 15:30 Eosinophils % 1.9 % (0-4.5) 09/10/18 15:30 Basophils % 0.3 % (0-2.0) 09/10/18 15:30 Nucleated RBC % 0 % (0-0) 09/10/18 15:30 PT with INR 12.20 SEC (9.7-13.0) 09/10/18 15:30 INR 1.03 (0.83-1.09) 09/10/18 15:30 Sodium 137 mmol/L (136-145) 09/10/18 15:30 Potassium 4.4 mmol/L (3.5-5.1) 09/10/18 15:30 Chloride 102 mmol/L (98-107) 09/10/18 15:30 Carbon Dioxide 31 mmol/L (21-32) 09/10/18 15:30 Anion Gap 5 MMOL/L (8-16) L 09/10/18 15:30 BUN 53 mg/dL (7-18) H 09/10/18 15:30 Creatinine 2.2 mg/dL (0.55-1.3) H 09/10/18 15:30 Creat Clearance w eGFR 30.68 (>60) 09/10/18 15:30 Random Glucose 158 mg/dL (74-106) H 09/10/18 15:30 Calcium 9.2 mg/dL (8.5-10.1) 09/10/18 15:30 Magnesium 1.8 mg/dL (1.8-2.4) 09/10/18 15:30 Total Bilirubin 0.4 mg/dL (0.2-1) 09/10/18 15:30 AST 14 U/L (15-37) L 09/10/18 15:30 ALT 38 U/L (13-61) 09/10/18 15:30 Alkaline Phosphatase 117 U/L (45-117) 09/10/18 15:30 Creatine Kinase 140 U/L (26-308) 09/10/18 15:30 Troponin I < 0.02 ng/ml (0.00-0.05) 09/10/18 15:30 B-Natriuretic Peptide 217.4 pg/ml (5-125) H 09/10/18 15:30 Total Protein 7.5 g/dl (6.4-8.2) 09/10/18 15:30 Albumin 3.5 g/dl (3.4-5.0) 09/10/18 15:30 Urine Color Straw 09/10/18 16:29 Urine Appearance Clear 09/10/18 16:29 Urine pH 5.0 (5.0-8.0) 09/10/18 16:29 Ur Specific [place] 1.007 (1.010-1.035) L 09/10/18 16:29 Urine Protein Negative (NEGATIVE) 09/10/18 16:29 Urine Glucose (UA) 3+ (NEGATIVE) H 09/10/18 16:29 Urine Ketones Negative (NEGATIVE) 09/10/18 16:29 Urine Blood Negative (NEGATIVE) 09/10/18 16:29 Urine Nitrite Negative (NEGATIVE) 09/10/18 16:29 Urine Bilirubin Negative (<2.0 mg/dL) 09/10/18 16:29 Urine Urobilinogen Negative mg/dL (0.2-1.0) 09/10/18 16:29 Ur Leukocyte Esterase Negative (NEGATIVE) 09/10/18 16:29 CXR: no acute process ecg: sr, nl intervals, no ischemic changes echo 08/2013: mild dec lvef, global hk echo 09/2013: mild dec lvef, inferolat hk, nl rv, no sig valve path echo 06/2018: mod dec lvef, global hk, nl rv, no sig valve path mibi 08/2013: mod inf scar with small periinfarct ischemia, lvef 35% mibi 06/2018: my read: mod inferolateral scar from apex to base with with minimal periinfarct ischemia, lvef 46%, global hk tele: sr a/p: 58 m hx dm, htn, syst chf, here with lightheadedness, syncope Lightheadedness, syncope, TONA - trop neg x 2 - likely 2/2 dehydration from overdiuresis, improved with IVF vs vasovagal, presented with TONA after increased lasix dose - no further cardiac workup at this point htn: -cont toprol for chf/htn - holding lisinopril for TONA chronic syst chf: -in 2013 found to have reduced lvef. Sent for cath then and per pt he did not need stent. Seems he has NICM. -cont toprol -restart lisinopril and lasix (home dose 20 mg daily) as Cr improves, advised to follow up within 1-2 weeks
[2018-09-11] MEDS ORDERED: ASPIRIN 81 MG CHEWABLE TABLETS PO SCH (10:00)
[2018-09-11] MEDS ORDERED: FUROSEMIDE 20 MG TABLET (FP) PO SCH (10:00)
[2018-09-11] MEDS ORDERED: metoPROLOL SUCCINATE 25 MG TAB.SR.24H (FP) PO SCH (10:00)
[2018-09-11 11:29] LABS: ALBUMIN 3.6 g/dl (3.4-5.0); ALK PHOS 120 U/L (45-117); ANION GAP 8 MMOL/L (8-16); BILIRUBIN,TOTAL 0.5 mg/dL (0.2-1); BLOOD UREA NITROGEN 60 mg/dL (7-18); CALCIUM 9.3 mg/dL (8.5-10.1); CHLORIDE 100 mmol/L (98-107); CO2 25 mmol/L (21-32); CREATININE 2.2 mg/dL (0.55-1.3); SGOT/AST 15 U/L (15-37); SGPT/ALT 39 U/L (13-61); SODIUM 133 mmol/L (136-145); TOT PROT 7.4 g/dl (6.4-8.2)
[2018-09-11 11:32] LABS: GLUCOSE,RANDOM 418 mg/dL (74-106)
[2018-09-11] MEDS ORDERED: INSULIN (NOVOLOG) ASPART 100 UNITS/ML 10ML VIAL ONE (12:34)
[2018-09-11] MEDS ORDERED: SODIUM CHLORIDE 1,000 ML IV SCH (13:00)
--- NOTE | 2018-09-11 13:04 | PN ---
Progress Note, Physician - Current Medication List Current Medications: Active Medications Aspirin (Asa -) 81 mg PO DAILY [facility] Last Admin: 09/11/18 09:28 Dose: 81 mg Atorvastatin Calcium (Lipitor -) 40 mg PO [facility] Last Admin: 09/10/18 22:38 Dose: 40 mg Docusate Sodium (Colace -) 100 mg PO BID [facility] Last Admin: 09/11/18 09:26 Dose: 100 mg Gabapentin (Neurontin -) 300 mg PO BID [facility] Last Admin: 09/11/18 09:26 Dose: 300 mg Sodium Chloride (Normal Saline -) 1,000 mls @ 100 mls/hr IV [facility] Insulin Aspart (Novolog Vial) 10 units SQ TIDAC [facility] Last Admin: 09/11/18 12:36 Dose: 10 units Metoprolol Succinate (Toprol Xl -) 25 mg PO DAILY [facility] Last Admin: 09/11/18 09:28 Dose: 25 mg Senna (Senna -) 1 tab PO [facility] Last Admin: 09/10/18 22:39 Dose: Not Given Tamsulosin HCl (Flomax -) 0.4 mg PO DAILY@0830 [facility] Last Admin: 09/11/18 09:27 Dose: 0.4 mg - Objective Vital Signs: Vital Signs Temperature 97.5 F L 09/11/18 07:18 Pulse Rate 86 09/11/18 07:18 Respiratory Rate 18 09/11/18 07:18 Blood Pressure 122/86 09/11/18 07:18 O2 Sat by Pulse Oximetry (%) 96 09/11/18 07:18 Constitutional: Yes: No Distress HENT: Yes: Atraumatic Neck: Yes: Supple Cardiovascular: Yes: Regular Rate and Rhythm Respiratory: Yes: CTA Bilaterally Gastrointestinal: Yes: Normal Bowel Sounds Extremities: Yes: WNL Edema: No Neurological: Yes: Alert, Oriented Labs: CBC, BMP 09/10/18 15:30 09/11/18 09:45 INR, PTT INR 1.03 (0.83-1.09) 09/10/18 15:30 Problem List - Problems (1) Syncope Assessment/Plan: feeling good Code(s): R55 - SYNCOPE AND COLLAPSE (2) Diabetes Assessment/Plan: fu sugars cover with insulin Code(s): E11.9 - TYPE 2 DIABETES MELLITUS WITHOUT COMPLICATIONS Qualifiers: (3) Hypercholesterolemia Code(s): E78.00 - PURE HYPERCHOLESTEROLEMIA, UNSPECIFIED (4) Hypertension Assessment/Plan: on meds monitor Code(s): I10 - ESSENTIAL (PRIMARY) HYPERTENSION Qualifiers: (5) Dehydration Assessment/Plan: hold lasix iv hydration monitor cr Code(s): E86.0 - DEHYDRATION
[2018-09-11] MEDS: SODIUM CHLORIDE 1,000 ML IV SCH (15:00)
[2018-09-11 15:06] VITALS: BMI 33.6
[2018-09-11] MEDS ORDERED: INSULIN (NOVOLOG) ASPART 100 UNITS/ML 10ML VIAL SQ SCH (16:30)
--- NOTE | 2018-09-11 16:31 | EKG ---
Test Reason : Blood Pressure : / mmHG Vent. Rate : 097 BPM Atrial Rate : 097 BPM P-R Int : 132 ms QRS Dur : 092 ms QT Int : 370 ms P-R-T Axes : 040 037 080 degrees QTc Int : 469 ms NORMAL SINUS RHYTHM NORMAL ECG WHEN COMPARED WITH ECG OF 12-JUL-2018 14:11, NO SIGNIFICANT CHANGE WAS FOUND Confirmed by Bob Torre ([id number]) on 09/11/2018 4:31:17 PM Referred By: Confirmed By:Bob Torre
[2018-09-11] MEDS: INSULIN (LEVEMIR) 100 UNITS/ML UNITS SQ SCH (16:42)
[2018-09-11] MEDS: INSULIN SLIDING SCALE (NOVOLOG) 1 VIAL SQ SCH ×2 (16:42→21:55)
[2018-09-11] MEDS: ATORVASTATIN CA 40 MG TABLET (FP) PO SCH (21:54)
[2018-09-11] MEDS: SENNOSIDES 8.6MG TABLET (FP) PO SCH (21:54)
[2018-09-12] MEDS: INSULIN SLIDING SCALE (NOVOLOG) 1 VIAL SQ SCH ×4 (06:38→21:55)
[2018-09-12] MEDS: INSULIN (LEVEMIR) 100 UNITS/ML UNITS SQ SCH ×2 (06:38→16:20)
[2018-09-12 07:32] LABS: BASO % 0.5 % (0-2.0); EOS % 2.3 % (0-4.5); HEMATOCRIT 36.9 % (35.4-49); HEMOGLOBIN 12.6 GM/dL (11.7-16.9); LYMPH % 30.2 % (8-40); MCH 28.9 pg (25.7-33.7); MCHC 34.2 g/dl (32.0-35.9); MEAN CELL VOLUME 84.3 fl (80-96); MEAN PLT VOLUME 10.7 fl (7.5-11.1); MONO % 6.8 % (3.8-10.2); NEUT % 60.2 % (42.8-82.8); PLATELET COUNT 195 K/MM3 (134-434); RBC 4.37 M/mm3 (4.00-5.60); RDW 13.2 % (11.9-15.9)
[2018-09-12 07:46] LABS: ALBUMIN 3.3 g/dl (3.4-5.0); ALK PHOS 123 U/L (45-117); ANION GAP 7 MMOL/L (8-16); BILIRUBIN,TOTAL 0.3 mg/dL (0.2-1); BLOOD UREA NITROGEN 59 mg/dL (7-18); CALCIUM 8.3 mg/dL (8.5-10.1); CHLORIDE 107 mmol/L (98-107); CO2 26 mmol/L (21-32); CREATININE 1.9 mg/dL (0.55-1.3); GLUCOSE,RANDOM 285 mg/dL (74-106); POTASSIUM 5.2 mmol/L (3.5-5.1); SGOT/AST 12 U/L (15-37); SGPT/ALT 31 U/L (13-61); SODIUM 140 mmol/L (136-145); TOT PROT 6.9 g/dl (6.4-8.2)
[2018-09-12] MEDS: metoPROLOL SUCCINATE 25 MG TAB.SR.24H (FP) PO SCH (10:00)
[2018-09-12] MEDS: DOCUSATE SODIUM 100 MG CAPSULE (FP) PO SCH ×2 (10:00→21:54)
[2018-09-12] MEDS: ASPIRIN 81 MG CHEWABLE TABLETS PO SCH (10:00)
[2018-09-12] MEDS: GABAPENTIN 300 MG CAPSULE (FP) PO SCH ×2 (10:00→21:54)
[2018-09-12] MEDS: TAMSULOSIN HCL 0.4 MG CAP PO SCH (10:00)
[2018-09-12] MEDS: SODIUM CHLORIDE 1,000 ML IV SCH ×2 (11:19→14:45)
--- NOTE | 2018-09-12 11:41 | PN ---
Progress Note (short form) - Note Progress Note: s: feels better today, dizziness improved. no chest pain, dyspnea, palps Current Medications Aspirin (Asa -) 81 mg PO DAILY [facility] Last Admin: 09/12/18 10:00 Dose: 81 mg Atorvastatin Calcium (Lipitor -) 40 mg PO HS [facility] Last Admin: 09/11/18 21:54 Dose: 40 mg Docusate Sodium (Colace -) 100 mg PO BID [facility] Last Admin: 09/12/18 10:00 Dose: 100 mg Gabapentin (Neurontin -) 300 mg PO BID [facility] Last Admin: 09/12/18 10:00 Dose: 300 mg Sodium Chloride (Normal Saline -) 1,000 mls @ 100 mls/hr IV ASDIR [facility] Last Admin: 09/12/18 11:19 Dose: 100 mls/hr Insulin Aspart (Novolog Vial Sliding Scale -) 1 vial SQ [facility]; Protocol Last Admin: 09/12/18 11:17 Dose: 12 units Insulin Detemir (Levemir Vial) 50 units SQ BIDI [facility] Last Admin: 09/12/18 06:38 Dose: 50 units Metoprolol Succinate (Toprol Xl -) 25 mg PO DAILY [facility] Last Admin: 09/12/18 10:00 Dose: 25 mg Senna (Senna -) 1 tab PO [facility] Last Admin: 09/11/18 21:54 Dose: 1 tab Tamsulosin HCl (Flomax -) 0.4 mg PO DAILY@0830 [facility] Last Admin: 09/12/18 10:00 Dose: 0.4 mg pe: Vital Signs Period Temp Pulse Resp BP Sys/Ji Pulse Ox Last 24 Hr 97.0 F-97.7 F 92-94 16-20 103-154/76-96 6-96 nad no jvd rrr s1s2 no mrg cta bl nl eff aaox3 trace pedal edema bl abd nt nd pos bs no jaundice diaphoresis pos dp pt no carotid bruits CXR: no acute process ecg: sr, nl intervals, no ischemic changes echo 08/2013: mild dec lvef, global hk echo 09/2013: mild dec lvef, inferolat hk, nl rv, no sig valve path echo 06/2018: mod dec lvef, global hk, nl rv, no sig valve path mibi 08/2013: mod inf scar with small periinfarct ischemia, lvef 35% mibi 06/2018: my read: mod inferolateral scar from apex to base with with minimal periinfarct ischemia, lvef 46%, global hk a/p: 58 m hx dm, htn, syst chf, here with lightheadedness, syncope Lightheadedness, syncope, TONA - trop neg x 2 - likely 2/2 dehydration from overdiuresis, improved with IVF vs vasovagal, presented with TONA after increased lasix dose - Cr improved after IVF overnight and dizziness improving - no further cardiac workup at this point htn: -cont toprol for chf/htn - holding lisinopril for TONA chronic syst chf: -in 2013 found to have reduced lvef. Sent for cath then and per pt he did not need stent. Seems he has NICM. -cont toprol -restart lisinopril and lasix (home dose 20 mg daily) when Cr at baseline, advised to follow up within 1-2 weeks
[2018-09-12] MEDS ORDERED: SODIUM POLYSTYRENE SULFONATE 15 GM/60 ML BOTTLE PO ONE (16:44)
--- NOTE | 2018-09-12 16:49 | PN ---
Progress Note, Physician - Current Medication List Current Medications: Active Medications Aspirin (Asa -) 81 mg PO DAILY [facility] Last Admin: 09/12/18 10:00 Dose: 81 mg Atorvastatin Calcium (Lipitor -) 40 mg PO HS [facility] Last Admin: 09/11/18 21:54 Dose: 40 mg Docusate Sodium (Colace -) 100 mg PO BID [facility] Last Admin: 09/12/18 10:00 Dose: 100 mg Gabapentin (Neurontin -) 300 mg PO BID [facility] Last Admin: 09/12/18 10:00 Dose: 300 mg Sodium Chloride (Normal Saline -) 1,000 mls @ 100 mls/hr IV ASDIR [facility] Last Admin: 09/12/18 14:45 Dose: Not Given Insulin Aspart (Novolog Vial Sliding Scale -) 1 vial SQ [facility]; Protocol Last Admin: 09/12/18 16:19 Dose: 10 units Insulin Detemir (Levemir Vial) 50 units SQ BIDI [facility] Last Admin: 09/12/18 16:20 Dose: 50 units Metoprolol Succinate (Toprol Xl -) 25 mg PO DAILY [facility] Last Admin: 09/12/18 10:00 Dose: 25 mg Senna (Senna -) 1 tab PO [facility] Last Admin: 09/11/18 21:54 Dose: 1 tab Sodium Polystyrene Sulfonate (Kayexalate -) 15 gm PO ONCE ONE Stop: 09/12/18 16:45 Tamsulosin HCl (Flomax -) 0.4 mg PO DAILY@0830 [facility] Last Admin: 09/12/18 10:00 Dose: 0.4 mg - Objective Vital Signs: Vital Signs Temperature 98.0 F 09/12/18 15:20 Pulse Rate 69 09/12/18 15:20 Respiratory Rate 18 09/12/18 15:20 Blood Pressure 119/62 09/12/18 15:20 O2 Sat by Pulse Oximetry (%) 97 09/12/18 11:00 Constitutional: Yes: No Distress Eyes: Yes: Conjunctiva Clear HENT: Yes: Atraumatic Neck: Yes: Supple Cardiovascular: Yes: Regular Rate and Rhythm Respiratory: Yes: CTA Bilaterally Gastrointestinal: Yes: Normal Bowel Sounds Extremities: Yes: WNL Labs: CBC, BMP 09/12/18 06:00 09/12/18 06:00 INR, PTT INR 1.03 (0.83-1.09) 09/10/18 15:30 Problem List - Problems (1) Syncope Assessment/Plan: feeling good troponins negative Code(s): R55 - SYNCOPE AND COLLAPSE (2) Diabetes Assessment/Plan: fu sugars cover with insulin Code(s): E11.9 - TYPE 2 DIABETES MELLITUS WITHOUT COMPLICATIONS Qualifiers: (3) Hypercholesterolemia Code(s): E78.00 - PURE HYPERCHOLESTEROLEMIA, UNSPECIFIED (4) Hypertension Assessment/Plan: on meds monitor Code(s): I10 - ESSENTIAL (PRIMARY) HYPERTENSION Qualifiers: (5) Dehydration Assessment/Plan: hold lasix iv hydration monitor cr...improving Code(s): E86.0 - DEHYDRATION (6) Hyperkalemia Assessment/Plan: will give a dose of kayexalate Code(s): E87.5 - HYPERKALEMIA
[2018-09-12] MEDS ORDERED: PT OWN MED DRAWER 7, Y5N ONE ×2 (21:18→21:37)
[2018-09-12] MEDS ORDERED: INSULIN (NOVOLOG) ASPART 100 UNITS/ML 10ML VIAL ONE (21:50)
[2018-09-12] MEDS ORDERED: INSULIN (LEVEMIR) 100 UNITS/ML UNITS SQ ONE (21:51)
[2018-09-12] MEDS: SENNOSIDES 8.6MG TABLET (FP) PO SCH (21:54)
[2018-09-12] MEDS: ATORVASTATIN CA 40 MG TABLET (FP) PO SCH (21:55)
[2018-09-13] MEDS: INSULIN (LEVEMIR) 100 UNITS/ML UNITS SQ SCH ×2 (06:48→17:29)
[2018-09-13] MEDS: INSULIN SLIDING SCALE (NOVOLOG) 1 VIAL SQ SCH ×4 (06:49→22:03)
[2018-09-13 08:58] LABS: ALK PHOS 107 U/L (45-117); ANION GAP 4 MMOL/L (8-16); BILIRUBIN,TOTAL 0.4 mg/dL (0.2-1); BLOOD UREA NITROGEN 48 mg/dL (7-18); CALCIUM 8.1 mg/dL (8.5-10.1); CHLORIDE 110 mmol/L (98-107); CO2 26 mmol/L (21-32); CREATININE 1.7 mg/dL (0.55-1.3); GLUCOSE,RANDOM 229 mg/dL (74-106); POTASSIUM 5.2 mmol/L (3.5-5.1); SGOT/AST 17 U/L (15-37); SGPT/ALT 31 U/L (13-61); SODIUM 139 mmol/L (136-145); TOT PROT 6.6 g/dl (6.4-8.2)
[2018-09-13] MEDS: TAMSULOSIN HCL 0.4 MG CAP PO SCH (09:41)
[2018-09-13] MEDS: ASPIRIN 81 MG CHEWABLE TABLETS PO SCH (10:21)
[2018-09-13] MEDS: DOCUSATE SODIUM 100 MG CAPSULE (FP) PO SCH ×2 (10:22→22:01)
[2018-09-13] MEDS: GABAPENTIN 300 MG CAPSULE (FP) PO SCH ×2 (10:22→22:02)
[2018-09-13] MEDS: metoPROLOL SUCCINATE 25 MG TAB.SR.24H (FP) PO SCH (10:22)
--- NOTE | 2018-09-13 12:45 | PN ---
Progress Note (short form) - Note Progress Note: s: feels better today, dizziness improved. no chest pain, dyspnea, palps Current Medications Generic Name Dose Route Start Last Admin Trade Name Eb PRN Reason Stop Dose Admin Aspirin 81 mg 09/12/18 10:00 09/13/18 10:21 Asa - PO 81 mg DAILY [facility] Administration Atorvastatin Calcium 40 mg 09/11/18 22:00 09/12/18 21:55 Lipitor - PO 40 mg HS [facility] Administration Docusate Sodium 100 mg 09/11/18 22:00 09/13/18 10:22 Colace - PO 100 mg BID [facility] Administration Gabapentin 300 mg 09/11/18 22:00 09/13/18 10:22 Neurontin - PO 300 mg BID [facility] Administration Sodium Chloride 1,000 mls @ 100 mls/hr 09/11/18 14:45 09/12/18 14:45 Normal Saline - IV Not Given ASDIR [facility] Insulin Aspart 1 vial 09/11/18 16:30 09/13/18 11:52 Novolog Vial Sliding Scale - SQ 8 units ACHS [facility] Administration Protocol Insulin Detemir 50 units 09/11/18 16:30 09/13/18 06:48 Levemir Vial SQ 50 units BIDI [facility] Administration Metoprolol Succinate 25 mg 09/12/18 10:00 09/13/18 10:22 Toprol Xl - PO 25 mg DAILY [facility] Administration Senna 1 tab 09/11/18 22:00 09/12/18 21:54 Senna - PO 1 tab HS [facility] Administration Tamsulosin HCl 0.4 mg 09/12/18 08:30 09/13/18 09:41 Flomax - PO 0.4 mg DAILY@0830 [facility] Administration pe: Vital Signs Period Temp Pulse Resp BP Sys/Ji Pulse Ox Last 24 Hr 97.3 F-98.1 F 69-91 18-20 119-153/62-97 97 nad no jvd rrr s1s2 no mrg cta bl nl eff aaox3 trace pedal edema bl abd nt nd pos bs no jaundice diaphoresis pos dp pt CBC, BMP 09/12/18 06:00 09/13/18 08:00 CXR: no acute process ecg: sr, nl intervals, no ischemic changes echo 08/2013: mild dec lvef, global hk echo 09/2013: mild dec lvef, inferolat hk, nl rv, no sig valve path echo 06/2018: mod dec lvef, global hk, nl rv, no sig valve path mibi 08/2013: mod inf scar with small periinfarct ischemia, lvef 35% mibi 06/2018: my read: mod inferolateral scar from apex to base with with minimal periinfarct ischemia, lvef 46%, global hk a/p: 58 m hx dm, htn, syst chf, here with lightheadedness, syncope Lightheadedness, syncope, MIKE - trop neg x 2 - likely 2/2 dehydration from overdiuresis, improved with IVF, presented with MIKE after increased lasix dose - Cr improved after IVF overnight and dizziness improving - no further cardiac workup at this point -cont ivfs, cr not yet at baseline htn: -cont toprol for chf/htn - holding lisinopril for MIKE chronic syst chf: -in 2013 found to have reduced lvef. Sent for cath then and per pt he did not need stent. Seems he has NICM. -cont toprol -restart lisinopril and lasix (home dose 20 mg daily) when Cr at baseline. reports taking lasix 20 qd so may have to change to qod given he developed mike here
--- NOTE | 2018-09-13 17:34 | PN ---
Progress Note, Physician - Current Medication List Current Medications: Active Medications Aspirin (Asa -) 81 mg PO DAILY [facility] Last Admin: 09/13/18 10:21 Dose: 81 mg Atorvastatin Calcium (Lipitor -) 40 mg PO HS [facility] Last Admin: 09/12/18 21:55 Dose: 40 mg Docusate Sodium (Colace -) 100 mg PO BID [facility] Last Admin: 09/13/18 10:22 Dose: 100 mg Gabapentin (Neurontin -) 300 mg PO BID [facility] Last Admin: 09/13/18 10:22 Dose: 300 mg Sodium Chloride (Normal Saline -) 1,000 mls @ 100 mls/hr IV ASDIR [facility] Last Admin: 09/12/18 14:45 Dose: Not Given Insulin Aspart (Novolog Vial Sliding Scale -) 1 vial SQ [facility]; Protocol Last Admin: 09/13/18 17:32 Dose: 10 units Insulin Detemir (Levemir Vial) 50 units SQ BIDI [facility] Last Admin: 09/13/18 17:29 Dose: 50 units Metoprolol Succinate (Toprol Xl -) 25 mg PO DAILY [facility] Last Admin: 09/13/18 10:22 Dose: 25 mg Senna (Senna -) 1 tab PO [facility] Last Admin: 09/12/18 21:54 Dose: 1 tab Tamsulosin HCl (Flomax -) 0.4 mg PO DAILY@0830 [facility] Last Admin: 09/13/18 09:41 Dose: 0.4 mg - Objective Vital Signs: Vital Signs Temperature 97.3 F L 09/13/18 17:05 Pulse Rate 93 H 09/13/18 17:05 Respiratory Rate 20 09/13/18 17:05 Blood Pressure 146/88 09/13/18 17:05 O2 Sat by Pulse Oximetry (%) 97 09/13/18 11:00 Constitutional: Yes: No Distress HENT: Yes: Atraumatic Neck: Yes: Supple Cardiovascular: Yes: Regular Rate and Rhythm Respiratory: Yes: CTA Bilaterally Gastrointestinal: Yes: Normal Bowel Sounds Extremities: Yes: WNL Neurological: Yes: Alert, Oriented Labs: CBC, BMP 09/12/18 06:00 09/13/18 08:00 INR, PTT INR 1.03 (0.83-1.09) 09/10/18 15:30 Problem List - Problems (1) Syncope Code(s): R55 - SYNCOPE AND COLLAPSE (2) Diabetes Code(s): E11.9 - TYPE 2 DIABETES MELLITUS WITHOUT COMPLICATIONS Qualifiers: (3) Hypercholesterolemia Code(s): E78.00 - PURE HYPERCHOLESTEROLEMIA, UNSPECIFIED (4) Hypertension Code(s): I10 - ESSENTIAL (PRIMARY) HYPERTENSION Qualifiers: (5) Dehydration Code(s): E86.0 - DEHYDRATION (6) Hyperkalemia Code(s): E87.5 - HYPERKALEMIA
[2018-09-13] MEDS: SODIUM CHLORIDE 1,000 ML IV SCH (17:45)
[2018-09-13] MEDS: SENNOSIDES 8.6MG TABLET (FP) PO SCH (22:01)
[2018-09-13] MEDS: ATORVASTATIN CA 40 MG TABLET (FP) PO SCH (22:02)
[2018-09-14 07:22] LABS: ALBUMIN 3.3 g/dl (3.4-5.0); ALK PHOS 109 U/L (45-117); ANION GAP 3 MMOL/L (8-16); BILIRUBIN,TOTAL 0.3 mg/dL (0.2-1); BLOOD UREA NITROGEN 41 mg/dL (7-18); CALCIUM 8.6 mg/dL (8.5-10.1); CHLORIDE 112 mmol/L (98-107); CO2 27 mmol/L (21-32); CREATININE 1.6 mg/dL (0.55-1.3); GLUCOSE,RANDOM 111 mg/dL (74-106); POTASSIUM 4.7 mmol/L (3.5-5.1); SGOT/AST 17 U/L (15-37); SGPT/ALT 33 U/L (13-61); SODIUM 142 mmol/L (136-145); TOT PROT 7.1 g/dl (6.4-8.2)
[2018-09-14] MEDS: INSULIN SLIDING SCALE (NOVOLOG) 1 VIAL SQ SCH (10:23)
[2018-09-14] MEDS: INSULIN (LEVEMIR) 100 UNITS/ML UNITS SQ SCH (10:23)
[2018-09-14] MEDS: ASPIRIN 81 MG CHEWABLE TABLETS PO SCH (10:33)
[2018-09-14] MEDS: TAMSULOSIN HCL 0.4 MG CAP PO SCH (10:33)
[2018-09-14] MEDS: GABAPENTIN 300 MG CAPSULE (FP) PO SCH (10:33)
[2018-09-14] MEDS: metoPROLOL SUCCINATE 25 MG TAB.SR.24H (FP) PO SCH (10:34)
[2018-09-14] MEDS: DOCUSATE SODIUM 100 MG CAPSULE (FP) PO SCH (10:34)
--- NOTE | 2018-09-14 11:00 | DS ---
Physical Examination Vital Signs: Vital Signs Temperature 97.8 F 09/13/18 20:26 Pulse Rate 92 H 09/13/18 20:26 Respiratory Rate 18 09/13/18 20:26 Blood Pressure 149/89 09/13/18 20:26 O2 Sat by Pulse Oximetry (%) 97 09/13/18 19:00 Labs: CBC, BMP 09/12/18 06:00 09/14/18 05:45 Discharge Summary Reason For Visit: Syncope Current Active Problems Dehydration (Acute) Hyperkalemia (Acute) Syncope (Acute) Condition: Stable - Instructions Referrals: Meryl Meyers MD [Staff Physician] - Nancy Aguirre MD [Staff Physician] - - Home Medications Comprehensive Discharge Medication List: Ambulatory Orders Gabapentin [Neurontin -] 300 mg PO BID 01/12/17 Insulin Lispro [Humalog] 10 unit SQ [facility] 01/12/17 Sennosides [Senna -] 1 tab PO HS #15 tablet 01/17/17 Aspirin [ASA -] 81 mg PO DAILY tab.chew 07/05/18 Docusate Sodium [Colace -] 100 mg PO BID #0 capsule 07/05/18 Insulin Glargine,Hum.rec.anlog [Lantus] 50 unit SQ BID #1 vial 07/05/18 Lisinopril [Prinivil] 5 mg PO DAILY #30 tablet 07/05/18 Metoprolol Succinate [Toprol XL -] 25 mg PO DAILY #30 tab.sr.24h 07/05/18 Atorvastatin Ca [Lipitor] 40 mg PO HS #30 tablet 07/13/18 Tamsulosin HCl [Flomax] 0.4 mg PO DAILY #30 cap.er.24h 07/13/18 dc
[2018-09-14 15:19] VITALS: BP 129/79; PULSE 91; TEMP 98
--- NOTE | 2018-09-14 15:37 | CONSULT ---
Consult Consult Specialty:: Nephrology Reason for Consultation:: TONA - History of Present Illness Chief Complaint: originaly presented with syncope History of Present Illness: Pt is a 58 year old male with pmhx of CHF, DM, HTN, HLD, BPH, GERD and diabetic retinopathy who originally presented with the ER with syncope. He was found to be in renal failure on presentation. Pt was taking lasix daily for edema. At that time it was thought he was overdiureses. His lasix was stopped and he was put on fluids. His renal function continued to improve over the subsequent days. I was called today to evaluate him for TONA. He denied history of ckd. He denies hematuria. He has poorly controlled DM. He feels that his lower ext edema is returning. He denies shortness of breath. - History Source History Provided By: Patient, Medical Record - Past Medical History Cardio/Vascular: Yes: HTN Pulmonary: Yes: Asthma Renal/: Yes: BPH Endocrine: Yes: Diabetes Mellitus - Past Surgical History Past Surgical History: Yes: Appendectomy - Alcohol/Substance Use Hx Alcohol Use: No History of Substance Use: reports: None - Smoking History Smoking history: Never smoked Have you smoked in the past 12 months: No - Social History ADL: Independent History of Recent Travel: No Home Medications - Allergies Allergies/Adverse Reactions: Allergies Allergy/AdvReac Type Severity Reaction Status Date / Time No Known Allergies Allergy Verified 07/12/18 14:06 - Home Medications Home Medications: Ambulatory Orders Gabapentin [Neurontin -] 300 mg PO BID 01/12/17 Insulin Lispro [Humalog] 10 unit SQ [facility] 01/12/17 Sennosides [Senna -] 1 tab PO HS #15 tablet 01/17/17 Aspirin [ASA -] 81 mg PO DAILY tab.chew 07/05/18 Docusate Sodium [Colace -] 100 mg PO BID #0 capsule 07/05/18 Insulin Glargine,Hum.rec.anlog [Lantus] 50 unit SQ BID #1 vial 07/05/18 Lisinopril [Prinivil] 5 mg PO DAILY #30 tablet 07/05/18 Metoprolol Succinate [Toprol XL -] 25 mg PO DAILY #30 tab.sr.24h 07/05/18 Atorvastatin Ca [Lipitor] 40 mg PO HS #30 tablet 07/13/18 Tamsulosin HCl [Flomax] 0.4 mg PO DAILY #30 cap.er.24h 07/13/18 Family Disease History - Family Disease History Family Disease History: Other: Sister (angina) Review of Systems - Review of Systems Constitutional: reports: Malaise Eyes: reports: No Symptoms HENT: reports: No Symptoms Neck: reports: No Symptoms Cardiovascular: reports: Edema. denies: Chest Pain Respiratory: denies: SOB Gastrointestinal: reports: No Symptoms Genitourinary: reports: No Symptoms Musculoskeletal: reports: No Symptoms Integumentary: reports: No Symptoms Neurological: reports: No Symptoms Endocrine: reports: No Symptoms Hematology/Lymphatic: reports: No Symptoms Psychiatric: reports: No Symptoms Physical Exam Vital Signs: Vital Signs Temperature 98 F 09/14/18 15:00 Pulse Rate 91 H 09/14/18 15:00 Respiratory Rate 18 09/14/18 15:00 Blood Pressure 129/79 09/14/18 15:00 O2 Sat by Pulse Oximetry (%) 97 09/14/18 11:00 Constitutional: Yes: Calm Eyes: Yes: Conjunctiva Clear HENT: Yes: Atraumatic Neck: Yes: Supple Cardiovascular: Yes: S1, S2 Respiratory: Yes: CTA Bilaterally Gastrointestinal: Yes: Soft Renal/: Yes: WNL Musculoskeletal: Yes: WNL Edema: Yes Edema: LLE: 1+, RLE: 1+ Neurological: Yes: Oriented Psychiatric: Yes: Oriented Labs: CBC, BMP 09/12/18 06:00 09/14/18 05:45 Laboratory Tests 09/10/18 09/10/18 09/10/18 15:30 15:30 16:29 WBC 10.6 H Sodium Potassium Chloride Anion Gap BUN Creatinine 2.2 H Urine Protein Negative Urine Glucose (UA) 3+ H Urine Ketones Negative Urine Blood Negative 09/11/18 09/12/18 09/12/18 09:45 06:00 06:00 WBC 9.0 Sodium Potassium Chloride Anion Gap BUN Creatinine 2.2 H 1.9 H Urine Protein Urine Glucose (UA) Urine Ketones Urine Blood 09/13/18 09/14/18 08:00 05:45 WBC Sodium 142 Potassium 4.7 Chloride 112 H Anion Gap 3 L BUN 41 H Creatinine 1.7 H 1.6 H Urine Protein Urine Glucose (UA) Urine Ketones Urine Blood Imaging - Results Chest X-ray: Report Reviewed Problem List - Problems (1) TONA (acute kidney injury) Code(s): N17.9 - ACUTE KIDNEY FAILURE, UNSPECIFIED (2) Dehydration Code(s): E86.0 - DEHYDRATION (3) Hyperkalemia Code(s): E87.5 - HYPERKALEMIA (4) Syncope Code(s): R55 - SYNCOPE AND COLLAPSE Assessment/Plan Current Medications Generic Name Dose Route Start Last Admin Trade Name Eb PRN Reason Stop Dose Admin Aspirin 81 mg 09/12/18 10:00 09/14/18 10:33 Asa - PO 81 mg DAILY [facility] Administration Atorvastatin Calcium 40 mg 09/11/18 22:00 09/13/18 22:02 Lipitor - PO 40 mg HS [facility] Administration Docusate Sodium 100 mg 09/11/18 22:00 09/14/18 10:34 Colace - PO 100 mg BID [facility] Administration Gabapentin 300 mg 09/11/18 22:00 09/14/18 10:33 Neurontin - PO 300 mg BID [facility] Administration Sodium Chloride 1,000 mls @ 100 mls/hr 09/11/18 14:45 09/13/18 17:45 Normal Saline - IV 100 mls/hr ASDIR [facility] Administration Insulin Aspart 1 vial 09/11/18 16:30 09/14/18 10:23 Novolog Vial Sliding Scale - SQ Not Given [facility] Protocol Insulin Detemir 50 units 09/11/18 16:30 09/14/18 10:23 Levemir Vial SQ 50 units BIDI [facility] Administration Metoprolol Succinate 25 mg 09/12/18 10:00 09/14/18 10:34 Toprol Xl - PO 25 mg DAILY [facility] Administration Senna 1 tab 09/11/18 22:00 09/13/18 22:01 Senna - PO 1 tab HS [facility] Administration Tamsulosin HCl 0.4 mg 09/12/18 08:30 09/14/18 10:33 Flomax - PO 0.4 mg DAILY@0830 [facility] Administration Impression 1. TONA 2. hyperkalemia 3. CHF 4. bph 5. HTN 6. dm poorly controlled with a1c 10 7. HLD Plan - check renal ultrasound - renal function has been improving - recommend holding fluids for now as he is developing lower ext edema - will need better glucose control - jackeline is also on hold - repeat labs in am - urine neg for blood or protein Dr Meyers
== END 2018-09-14 15:51 | disposition home or self-care (01) | DRG 683 ==
LOC: JER 14:34 → JERBED 17:19 → J8W 09-11 14:37 → OBSVTOIN 09-12 14:31
PROVIDERS: ADMIT Internal Medicine
DX: N17.9 Acute kidney failure, unspecified (principal); I50.22 Chronic systolic (congestive) heart failure; R55 Syncope and collapse; I11.0 Hypertensive heart disease with heart failure; E78.5 Hyperlipidemia, unspecified; E11.42 Type 2 diabetes mellitus with diabetic polyneuropathy; K21.9 Gastro-esophageal reflux disease without esophagitis; Z79.4 Long term (current) use of insulin; R00.0 Tachycardia, unspecified; E86.0 Dehydration; E87.5 Hyperkalemia; E11.319 Type 2 diabetes mellitus with unspecified diabetic retinopathy without macular edema; E11.65 Type 2 diabetes mellitus with hyperglycemia
CPT/HCPCS: 36415; 70450-TC; 71045-TC-FY; 80053; 81003; 82550; 82962; 83735; 83880; 84484; 85025; 85610; 93005; 93010; 99285-25; G0378; J7030

== ENCOUNTER 2019-02-22 20:17 | Inpatient (IN) | payer OTHER | END 2019-03-09 13:40 | disposition home or self-care (01) | LOC: J6S 02-28 17:52 → JERBED 02-23 01:32 → J6S 02-26 10:41 → JER 20:17 → J4W 02-23 21:12 ==

== ENCOUNTER 2019-03-31 10:41 | Inpatient (IN) | payer OTHER | END 2019-04-10 17:44 | LOC: JER 10:41 → JERBED 13:37 → J4W 15:31 ==